=== PATIENT | male | born 1950 | race Caucasian/White ===

== ENCOUNTER 2019-08-25 13:47 | Inpatient (IN) | payer MEDICARE ==
[2019-08-25 14:34] LABS: Basophils # (A) 0.1 k/uL (0-0.2); Basophils % (A) 1 %; Eosinophils # (A) 0.1 k/uL (0-0.7); Eosinophils % (A) 1 %; HCT 41.5 % (39.0-53.0); HGB 12.7 gm/dL (13.0-17.5); Hypochromasia Marked; Lymphocytes # (A) 1.3 k/uL (1.0-4.8); Lymphocytes % (A) 15 %; MCH 27.1 pg (25.0-35.0); MCHC 30.6 g/dL (31.0-37.0); MCV 88.4 fL (80.0-100.0); Mean Platelet Volume 7.7; Monocytes # (A) 0.9 k/uL (0-1.0); Monocytes % (A) 9 %; Neutrophils # (A) 6.7 k/uL (1.3-7.7); Neutrophils % (A) 73 %; Platelet Count 315 k/uL (150-450); RDW 15.6 % (11.5-15.5); WBC 9.3 k/uL (3.8-10.6)
--- NOTE | 2019-08-25 14:42 | ED ---
SOB HPI - General Chief Complaint: Shortness of Breath Stated Complaint: sob Time Seen by Provider: 08/25/19 14:06 Source: patient Mode of arrival: wheelchair Limitations: no limitations - History of Present Illness Initial Comments: This is a 60-year-old male denies any history of emphysema or COPD but is a smoker formally one pack per day who states she's been having shortness of breath for the past several weeks getting progressively worse he has exertional dyspnea he states she's had edema to his lower extremities with weeping and blister formation. He denies any overt chest pain cough fevers chills or sweats he does state he had some loss of taste to his tongue. No or exposure to covid- 19. No chest pain other complaints no other modifying factors MD Complaint: shortness of breath - Related Data Home Medications Medication Instructions Recorded Confirmed Naproxen Sodium [Aleve] 220 - 440 mg PO DAILY PRN 08/25/19 08/25/19 Allergies Allergy/AdvReac Type Severity Reaction Status Date / Time No Known Allergies Allergy Verified 08/25/19 16:32 Review of Systems ROS Statement: Those systems with pertinent positive or pertinent negative responses have been documented in the HPI. ROS Other: All systems not noted in ROS Statement are negative. Past Medical History Past Medical History: Hyperlipidemia, Hypertension Additional Past Medical History / Comment(s): heart disease, angina History of Any Multi-Drug Resistant Organisms: None Reported Past Surgical History: Joint Replacement, Orthopedic Surgery Additional Past Surgical History / Comment(s): right knee, right hip replacements Past Psychological History: No Psychological Hx Reported Smoking Status: Current every day smoker Past Alcohol Use History: None Reported Past Drug Use History: None Reported General Exam - General Exam Comments Initial Comments: This is a well-developed asthenic appearing male who is awake alert oriented 3 Limitations: no limitations General appearance: alert, anxious Head exam: Present: atraumatic, normocephalic, normal inspection Eye exam: Present: normal appearance, PERRL, EOMI. Absent: scleral icterus, conjunctival injection, periorbital swelling ENT exam: Present: normal exam, mucous membranes moist Neck exam: Present: normal inspection, full ROM, other. Absent: tenderness, meningismus, lymphadenopathy Respiratory exam: Present: rales, decreased breath sounds (No stridor JVD or br uits). Absent: respiratory distress, wheezes, rhonchi, stridor Cardiovascular Exam: Present: normal rhythm, tachycardia, normal heart sounds. Absent: systolic murmur, diastolic murmur, rubs, gallop, clicks GI/Abdominal exam: Present: soft, normal bowel sounds. Absent: distended, tenderness, guarding, rebound, rigid Extremities exam: Present: full ROM, normal capillary refill, pedal edema, other (Pila edema past the knees bilaterally evidence of weeping multiple areas of partially healing blisters on the legs. His socks are seen with serous colored fluid.). Absent: tenderness, joint swelling, calf tenderness Back exam: Present: normal inspection Neurological exam: Present: alert, oriented X3, CN II-XII intact Psychiatric exam: Present: normal affect, normal mood Skin exam: Present: warm, dry. Absent: rash Course Vital Signs 08/25/19 08/25/19 08/25/19 13:54 14:22 14:28 Temperature 97.5 F L Pulse Rate 120 H 116 H Pulse Rate [ Pulse Oximetery ] Respiratory 20 22 16 Rate Blood Pressure 128/78 140/77 O2 Sat by Pulse 95 96 Oximetry 08/25/19 08/25/19 14:29 15:34 Temperature Pulse Rate 106 H Pulse Rate [ 122 H Pulse Oximetery ] Respiratory 16 Rate Blood Pressure 132/85 O2 Sat by Pulse 95 Oximetry - Reevaluation(s) Reevaluation #1: 08/25/19 16:49 Reevaluation patient reveals no change in his status. Reevaluation #2: 08/25/19 16:59 Patient is a gets some relief initial treatment Medical Decision Making - Medical Decision Making I did discuss Pfizer the patient as well as with Dr. Ribeiro from [facility] patient be admitted for further evaluation - Lab Data Result diagrams: 08/25/19 14:20 08/25/19 14:20 Lab Results 08/25/19 08/25/19 08/25/19 Range/Units 14:20 14:20 14:20 WBC 9.3 (3.8-10.6) k/uL RBC 4.70 (4.30-5.90) m/uL Hgb 12.7 L (13.0-17.5) gm/dL Hct 41.5 (39.0-53.0) % MCV 88.4 (80.0-100.0) fL MCH 27.1 (25.0-35.0) pg MCHC 30.6 L (31.0-37.0) g/dL RDW 15.6 H (11.5-15.5) % Plt Count 315 (150-450) k/uL Neutrophils % 73 % Lymphocytes % 15 % Monocytes % 9 % Eosinophils % 1 % Basophils % 1 % Neutrophils # 6.7 (1.3-7.7) k/uL Lymphocytes # 1.3 (1.0-4.8) k/uL Monocytes # 0.9 (0-1.0) k/uL Eosinophils # 0.1 (0-0.7) k/uL Basophils # 0.1 (0-0.2) k/uL Hypochromasia Marked PT 12.9 H (9.0-12.0) sec INR 1.3 H (<1.2) APTT 22.5 (22.0-30.0) sec D-Dimer 2.84 H (<0.60) mg/L FEU Sodium 135 L (137-145) mmol/L Potassium 4.5 (3.5-5.1) mmol/L Chloride 105 (98-107) mmol/L Carbon Dioxide 17 L (22-30) mmol/L Anion Gap 13 mmol/L BUN 26 H (9-20) mg/dL Creatinine 1.20 (0.66-1.25) mg/dL Est GFR (CKD-EPI)AfAm 72 (>60 ml/min/1.73 sqM) Est GFR (CKD-EPI)NonAf 62 (>60 ml/min/1.73 sqM) Glucose 140 H (74-99) mg/dL Lactic Ac Sepsis Rflx Plasma Lactic Acid Ari (0.7-2.0) mmol/L Calcium 9.3 (8.4-10.2) mg/dL Magnesium 2.1 (1.6-2.3) mg/dL Total Bilirubin 1.3 (0.2-1.3) mg/dL AST 126 H (17-59) U/L ALT 114 H (4-49) U/L Alkaline Phosphatase 116 (38-126) U/L Creatine Kinase 189 H (55-170) U/L Troponin I (0.000-0.034) ng/mL NT-Pro-B Natriuret Pep pg/mL Total Protein 7.2 (6.3-8.2) g/dL Albumin 3.8 (3.5-5.0) g/dL 08/25/19 08/25/19 08/25/19 Range/Units 14:20 14:20 14:20 WBC (3.8-10.6) k/uL RBC (4.30-5.90) m/uL Hgb (13.0-17.5) gm/dL Hct (39.0-53.0) % MCV (80.0-100.0) fL MCH (25.0-35.0) pg MCHC (31.0-37.0) g/dL RDW (11.5-15.5) % Plt Count (150-450) k/uL Neutrophils % % Lymphocytes % % Monocytes % % Eosinophils % % Basophils % % Neutrophils # (1.3-7.7) k/uL Lymphocytes # (1.0-4.8) k/uL Monocytes # (0-1.0) k/uL Eosinophils # (0-0.7) k/uL Basophils # (0-0.2) k/uL Hypochromasia PT (9.0-12.0) sec INR (<1.2) APTT (22.0-30.0) sec D-Dimer (<0.60) mg/L FEU Sodium (137-145) mmol/L Potassium (3.5-5.1) mmol/L Chloride (98-107) mmol/L Carbon Dioxide (22-30) mmol/L Anion Gap mmol/L BUN (9-20) mg/dL Creatinine (0.66-1.25) mg/dL Est GFR (CKD-EPI)AfAm (>60 ml/min/1.73 sqM) Est GFR (CKD-EPI)NonAf (>60 ml/min/1.73 sqM) Glucose (74-99) mg/dL Lactic Ac Sepsis Rflx Plasma Lactic Acid Ari 3.9 H* (0.7-2.0) mmol/L Calcium (8.4-10.2) mg/dL Magnesium (1.6-2.3) mg/dL Total Bilirubin (0.2-1.3) mg/dL AST (17-59) U/L ALT (4-49) U/L Alkaline Phosphatase (38-126) U/L Creatine Kinase (55-170) U/L Troponin I 2.780 H* (0.000-0.034) ng/mL NT-Pro-B Natriuret Pep 34207 pg/mL Total Protein (6.3-8.2) g/dL Albumin (3.5-5.0) g/dL 08/25/19 Range/Units 14:53 WBC (3.8-10.6) k/uL RBC (4.30-5.90) m/uL Hgb (13.0-17.5) gm/dL Hct (39.0-53.0) % MCV (80.0-100.0) fL MCH (25.0-35.0) pg MCHC (31.0-37.0) g/dL RDW (11.5-15.5) % Plt Count (150-450) k/uL Neutrophils % % Lymphocytes % % Monocytes % % Eosinophils % % Basophils % % Neutrophils # (1.3-7.7) k/uL Lymphocytes # (1.0-4.8) k/uL Monocytes # (0-1.0) k/uL Eosinophils # (0-0.7) k/uL Basophils # (0-0.2) k/uL Hypochromasia PT (9.0-12.0) sec INR (<1.2) APTT (22.0-30.0) sec D-Dimer (<0.60) mg/L FEU Sodium (137-145) mmol/L Potassium (3.5-5.1) mmol/L Chloride (98-107) mmol/L Carbon Dioxide (22-30) mmol/L Anion Gap mmol/L BUN (9-20) mg/dL Creatinine (0.66-1.25) mg/dL Est GFR (CKD-EPI)AfAm (>60 ml/min/1.73 sqM) Est GFR (CKD-EPI)NonAf (>60 ml/min/1.73 sqM) Glucose (74-99) mg/dL Lactic Ac Sepsis Rflx Y Plasma Lactic Acid Ari (0.7-2.0) mmol/L Calcium (8.4-10.2) mg/dL Magnesium (1.6-2.3) mg/dL Total Bilirubin (0.2-1.3) mg/dL AST (17-59) U/L ALT (4-49) U/L Alkaline Phosphatase (38-126) U/L Creatine Kinase (55-170) U/L Troponin I (0.000-0.034) ng/mL NT-Pro-B Natriuret Pep pg/mL Total Protein (6.3-8.2) g/dL Albumin (3.5-5.0) g/dL - EKG Data -: EKG Interpreted by Me EKG shows normal: sinus rhythm EKG Comments: Sinus rhythm with tachycardia rate 116 156 QRS duration 106 QT since QTC 346/40 evidence of inferior and anterior infarct of undetermined age. - Radiology Data Radiology results: report reviewed (I did review the imaging and report evidence a right pleural effusion and evidence of right sided pulmonary embolism. Small left-sided effusion), image reviewed Critical Care Time Critical Care Time: Yes Critical Care Time: 39 minutes of critical care time which includes initial presentation with history physical labs x-rays several reevaluation the patient discussed with the patient regarding findings discussed with the beta physician admission orders documentation of the above Disposition Clinical Impression: Congestive heart failure, Pulmonary embolism, Lactic acidosis, Elevated troponin, Failure to thrive in adult, Peripheral edema Disposition: ADMITTED IP TO THIS [facility] Condition: Fair Referrals: None,Stated [Primary Care Provider] - 1-2 days
[2019-08-25 14:47] LABS: Albumin 3.8 g/dL (3.5-5.0); Calcium 9.3 mg/dL (8.4-10.2); Magnesium 2.1 mg/dL (1.6-2.3); Potassium 4.5 mmol/L (3.5-5.1); Total Bilirubin 1.3 mg/dL (0.2-1.3); Total Protein 7.2 g/dL (6.3-8.2)
--- NOTE | 2019-08-25 14:47 | XR ---
EXAMINATION TYPE: XR chest 2V DATE OF EXAM: 08/25/2019 COMPARISON: NONE HISTORY: Shortness of breath and lower extremity swelling TECHNIQUE: Frontal and lateral views of the chest are obtained. FINDINGS: Small right pleural effusion and trace left pleural effusion are seen with bibasilar airsp jignesh disease. Minimal central pulmonary vascular congestion and enlarged cardiac mediastinal silhouett e. Flattening of the diaphragms representing underlying COPD. Mild diffuse osseous demineralization. IMPRESSION: Fluid overload, likely cardiogenic with small right pleural effusion and trace left pleu ral effusion as well as bibasilar airspace disease. Underlying COPD also seen.
[2019-08-25 14:49] LABS: INR 1.3 (<1.2); Partial Thromboplastin Time 22.5 sec (22.0-30.0); Prothrombin Time 12.9 sec (9.0-12.0)
[2019-08-25 14:54] LABS: D-Dimer 2.84 mg/L FEU (<0.60)
[2019-08-25] MEDS ORDERED: SODIUM CHLORIDE 0.9% 1,000 ML IV STA ×2 (14:57)
--- NOTE | 2019-08-25 15:35 | CT ---
EXAMINATION TYPE: CT angio chest DATE OF EXAM: 08/25/2019 3:20 PM COMPARISON: Chest x-ray 08/25/2019 HISTORY: SOB CT DLP: 433.9 mGycm Automated exposure control for dose reduction was used. CONTRAST: CTA scan of the thorax is performed with IV Contrast, patient injected with 85 mL of Isovue 370, pulm onary embolism protocol. . FINDINGS: LUNGS: There is diffuse emphysematous changes bilaterally. Groundglass changes are seen bilaterally a nd there is bilateral pleural effusions greater on the right with areas of suspected compressive atel ectasis. Calcified granuloma right upper lobe. Measures 3 mm MEDIASTINUM: There is no questionable filling defect within a distal branch of the right pulmonary ar madhavi axial image 95 through 98. Heart is markedly enlarged and the aorta is of normal caliber with at herosclerotic changes. In the prevascular space there is pathologic adenopathy measuring short axis o f 1.2 cm. Reflux of contrast within the hepatic veins can be associated with right ventricular dysfun ction. Correlate clinically. Coronary artery calcification noted. OTHER: A small amount of fluid is seen adjacent to the liver and air adjacent to liver appears to be contained within bowel. Correlate clinically as this is only partially included on the exam.. Hypert rophic and degenerative change of the spine. IMPRESSION: 1. Findings suspicious for small pulmonary embolism involving a third order branches of the right pul monary artery and the right lower lobe. 2. COPD with severe cardiomegaly bilateral pleural effusions correlate for mild venous congestion. 3. Nonspecific mediastinal lymphadenopathy.
[2019-08-25] MEDS ORDERED: ASPIRIN 325 MG TAB PO STA (16:59)
[2019-08-25] MEDS ORDERED: HEPARIN SODIUM,PORCINE 5,000 UNIT/ML 1 ML VIAL IV PRN (17:02)
[2019-08-25] MEDS ORDERED: HEPARIN SODIUM,PORCINE 10,000 UNIT/ML 1 ML VIAL IV ONE (17:02)
[2019-08-25] MEDS: HEPARIN SOD,PORK IN 0.45% NACL 25,000 UNIT in 0.45% NACL 1 250ML.BAG IV SCH (17:34)
[2019-08-25] MEDS: FUROSEMIDE 10 MG/ML 4 ML VIAL IV SCH ×2 (17:34→23:08)
--- NOTE | 2019-08-25 18:24 | P.HPIM ---
History of Present Illness H&P Date: 08/25/19 Chief Complaint: shortness of breath 68-year-old male with no significant PMH presents the ED for shortness of breath or lower extremity swelling. Patient reports shortness of breath that has been progressively getting worse over the past 2 months. Patient reports 3 months ago, he was able to walk 1 mile prior to feeling short of breath. Patient states that he can barely walk from his bed to the washroom without stopping to catch his breath. Patient also complains of lower extremity swelling that has been also getting worse during this time period. Patient denies any orthopnea as he sleeps on his side. He denies any headache, nausea or vomiting, fever or chills, cough, chest pain, palpitations, changes in urination or bowel habits. No changes in appetite or weight. He denies any dizziness, numbness/weakness/tingling of the extremities.in the ED, his vital signs are stable except for pulse of 122.CBC showed hemoglobin of 12.7. INR was 1.3. D- dimer was 2.84. CMP showed sodium of 135, bicarbonate of 17, BUN of 26, glucose of 140. Lactic acid was 3.9. AST was 126, ALT of 114. Creatinine kinase was 189. Troponin was 2.78. BNP was 15,400, chest x-ray showing fluid overload.CTA chest was performed which confirmed PE, COPD with severe cardiomegaly and bilateral pleural effusions. Patient is admitted for anticipated greater than 48 hour admission for troponin elevation, CHF exacerbation and pulmonary embolus. Review of Systems Pertinent positives and negatives as discussed in HPI, a complete review of systems was performed and all other systems are negative. Past Medical History Past Medical History: Hyperlipidemia, Hypertension Additional Past Medical History / Comment(s): heart disease, angina History of Any Multi-Drug Resistant Organisms: None Reported Past Surgical History: Joint Replacement, Orthopedic Surgery Additional Past Surgical History / Comment(s): right knee, right hip replacements Past Psychological History: No Psychological Hx Reported Smoking Status: Current every day smoker Past Alcohol Use History: None Reported Past Drug Use History: None Reported Medications and Allergies Home Medications Medication Instructions Recorded Confirmed Type Naproxen Sodium [Aleve] 220 - 440 mg PO DAILY PRN 08/25/19 08/25/19 History Allergies Allergy/AdvReac Type Severity Reaction Status Date / Time No Known Allergies Allergy Verified 08/25/19 16:32 Physical Exam Vitals: Vital Signs Temp Pulse Pulse Resp BP Pulse Ox 08/25/19 17:01 105 H 16 114/89 96 08/25/19 15:34 106 H 16 132/85 95 08/25/19 14:29 122 H 08/25/19 14:28 116 H 16 140/77 96 08/25/19 14:22 22 08/25/19 13:54 97.5 F L 120 H 20 128/78 95 Intake and Output 08/25/19 08/25/19 08/25/19 06:59 14:59 22:59 Other: Weight 74.843 kg General: [non toxic], [no distress], [appears at stated age] Derm: [warm], [dry] Head: [atraumatic], [normocephalic], [symmetric] Eyes: [EOMI], [no lid lag], [anicteric sclera] Mouth: [no lip lesion], [mucus membranes moist] Cardiovascular: [S1S2 reg], [tachycardic], [positive DP pulse bilateral], Lungs: [decreased breath sounds bilateral], [Rales bilaterally] , [no accessory muscle use] Abdominal: [soft], [ nontender to palpation], [no guarding], [no appreciable organomegaly] Ext: [no gross muscle atrophy], [2+ pitting lower extremity edema with weeping], [no contractures] Neuro: [ CN II-XI grossly intact], [no focal neuro deficits] Psych: [Alert], [oriented], [appropriate affect] Results CBC & Chem 7: 08/25/19 14:20 08/25/19 14:20 Labs: Abnormal Lab Results - Last 24 Hours (Table) 08/25/19 08/25/19 08/25/19 Range/Units 14:20 14:20 14:20 Hgb 12.7 L (13.0-17.5) gm/dL MCHC 30.6 L (31.0-37.0) g/dL RDW 15.6 H (11.5-15.5) % PT 12.9 H (9.0-12.0) sec INR 1.3 H (<1.2) D-Dimer 2.84 H (<0.60) mg/L FEU Sodium 135 L (137-145) mmol/L Carbon Dioxide 17 L (22-30) mmol/L BUN 26 H (9-20) mg/dL Glucose 140 H (74-99) mg/dL Plasma Lactic Acid Ari (0.7-2.0) mmol/L AST 126 H (17-59) U/L ALT 114 H (4-49) U/L Creatine Kinase 189 H (55-170) U/L Troponin I (0.000-0.034) ng/mL 08/25/19 08/25/19 Range/Units 14:20 14:20 Hgb (13.0-17.5) gm/dL MCHC (31.0-37.0) g/dL RDW (11.5-15.5) % PT (9.0-12.0) sec INR (<1.2) D-Dimer (<0.60) mg/L FEU Sodium (137-145) mmol/L Carbon Dioxide (22-30) mmol/L BUN (9-20) mg/dL Glucose (74-99) mg/dL Plasma Lactic Acid Ari 3.9 H* (0.7-2.0) mmol/L AST (17-59) U/L ALT (4-49) U/L Creatine Kinase (55-170) U/L Troponin I 2.780 H* (0.000-0.034) ng/mL Assessment and Plan Assessment: Shortness of breath Pulmonary embolus Troponin elevation Acute CHF exacerbation Lactic acidosis Transaminitis History of COPD Patient's shortness of breath is multifactorial. Differentials include pulmonary embolus, advanced COPD, CHF exacerbation. CTA chest shows small PE involving the third order branches of the right pulmonary artery, COPD with severe cardiomegaly bilateral pleural effusions. Patient has been started on heparin drip for his diagnosis of PE. Pulmonology and hematology has been consulted for further management. His troponin elevation of 2.78, EKG showing sinus tachycardia could be related to demand ischemia or troponin leak from CHF versus non-ST elevation RI. Plan is to trend troponin/EKG to rule out ACS. Telemetry monitoring as ordered. Echocardiogram has been ordered. He will be continued on heparin drip as above. He will be started on aspirin. Cardiology will be consulted. His CTA chest is suggested of congestive heart failure exacerbation. Patient be started on Lasix 40 mg IV 3 times a day. Strict intake and outtake will be be ordered. Daily weights will be performed. Patient had elevated lactic acid of 3.9 on admission. This is likely related to dehydration. He was given 1 L bolus in the ED. There are no clear signs of infection at this time. Plans to repeat lactic acid until negative. Patient has elevated AST of 126, ALT of 114. This is of unknown significance. Will order lipid panel and acute hepatitis panel. Plans to repeat CMP tomorrow morning. CTA chest is suggestive of a chronic COPD. He will be given DuoNeb as needed for shortness of breath and wheezing. DVT prophylaxis: [heparin drip] Discussed with: [patient] Anticipated discharge: [2-3 days] Anticipated discharge place: [home] A total of [60] minutes was spent on the care of this complex patient more than 50% of the time was spent in counseling and care coordination. Patient names his sister Angy decision maker if he is unable to make decisions for himself. Patient would like to be full code.
[2019-08-25] MEDS ORDERED: IPRATROPIUM-ALBUTEROL 3 ML NEB INHALATION PRN (19:05)
[2019-08-25] MEDS: IPRATROPIUM-ALBUTEROL 3 ML NEB INHALATION SCH (19:17)
[2019-08-25] MEDS ORDERED: IPRATROPIUM-ALBUTEROL 3 ML NEB INHALATION SCH (20:00)
[2019-08-26 04:45] LABS: Anisocytosis Slight; Basophils # (A) 0.1 k/uL (0-0.2); Basophils % (A) 1 %; Eosinophils % (A) 1 %; HCT 39.1 % (39.0-53.0); HGB 11.7 gm/dL (13.0-17.5); Hypochromasia Marked; Lymphocytes # (A) 1.6 k/uL (1.0-4.8); Lymphocytes % (A) 20 %; MCHC 29.8 g/dL (31.0-37.0); MCV 87.2 fL (80.0-100.0); Mean Platelet Volume 7.5; Monocytes # (A) 0.8 k/uL (0-1.0); Monocytes % (A) 10 %; Neutrophils # (A) 5.2 k/uL (1.3-7.7); Neutrophils % (A) 65 %; Platelet Count 264 k/uL (150-450); RBC 4.49 m/uL (4.30-5.90); RDW 16.2 % (11.5-15.5); WBC 8.1 k/uL (3.8-10.6)
[2019-08-26 04:56] LABS: Albumin 3.5 g/dL (3.5-5.0); Calcium 8.8 mg/dL (8.4-10.2); Potassium 4.3 mmol/L (3.5-5.1); Total Bilirubin 1.1 mg/dL (0.2-1.3); Total Protein 6.8 g/dL (6.3-8.2)
[2019-08-26] MEDS: IPRATROPIUM-ALBUTEROL 3 ML NEB INHALATION SCH ×4 (07:03→20:11)
[2019-08-26] MEDS: FUROSEMIDE 10 MG/ML 4 ML VIAL IV SCH ×3 (07:59→22:46)
--- NOTE | 2019-08-26 08:44 | ECHOF ---
Referral Reason:Troponin elevation MEASUREMENTS -------- HEIGHT: 180.3 cm WEIGHT: 84.4 kg BP: 119/71 RVIDd: 3.9 cm (< 3.3) IVSd: 1.2 cm (0.6 - 1.1) LVIDd: 5.8 cm (3.9 - 5.3) LVPWd: 1.3 cm (0.6 - 1.1) IVSs: 1.2 cm LVIDs: 5.1 cm LVPWs: 1.5 cm LA Diam: 4.1 cm (2.7 - 3.8) LAESV Index (A-L): 41.35 ml/m Ao Diam: 3.2 cm (2.0 - 3.7) AV Cusp: 1.8 cm (1.5 - 2.6) MV EXCURSION: 17.354 mm (> 18.000) MV EF SLOPE: 47 mm/s (70 - 150) EPSS: 1.8 cm MV E Meng: 1.54 m/s MV DecT: 155 ms MV A Meng: 1.19 m/s MV E/A Ratio: 1.29 RAP: 15.00 mmHg RVSP: 49.17 mmHg FINDINGS -------- This was a technically good study. The left ventricular size is normal. There is borderline concentric left ventricular hypertrophy. Overall left ventricular systolic function is severely impaired with, an EF between 20 - 25 %. Inf erior Hypokinesis The right ventricle is moderately enlarged. LA is severely dilated >40 ml/m2 The right atrium is normal in size. Interatrial and interventricular septum intact. The aortic valve is trileaflet and appears structurally normal. There is mild aortic regurgitation. The mitral valve leaflets are mildly thickened. [id number] mitral regurgitation is present. [id number]-[id number] tricuspid regurgitation present. There is moderate pulmonary hypertension. The r ight ventricular systolic pressure, as measured by Doppler, is 49.17mmHg. Trace/mild (physiologic) pulmonic regurgitation. The aortic root size is normal. The inferior vena cava is dilated with no significant inspiratory collapse which is consistent estima keisha right atrial pressure of >15 mmHg. There is no pericardial effusion. CONCLUSIONS -------- 1. This was a technically good study. 2. The left ventricular size is normal. 3. There is borderline concentric left ventricular hypertrophy. 4. Overall left ventricular systolic function is severely impaired with, an EF between 20 - 25 %. 5. Inferior Hypokinesis 6. The right ventricle is moderately enlarged. 7. LA is severely dilated >40 ml/m2 8. The right atrium is normal in size. 9. Interatrial and interventricular septum intact. 10. The aortic valve is trileaflet and appears structurally normal. 11. There is mild aortic regurgitation. 12. The mitral valve leaflets are mildly thickened. 13. Mkfssprp-xl-kiwqha mitral regurgitation is present. 14. Ybxp-is-cphtraxj tricuspid regurgitation present. 15. There is moderate pulmonary hypertension. 16. The right ventricular systolic pressure, as measured by Doppler, is 49.17mmHg. 17. Trace/mild (physiologic) pulmonic regurgitation. 18. The aortic root size is normal. 19. The inferior vena cava is dilated with no significant inspiratory collapse which is consistent es timated right atrial pressure of >15 mmHg. 20. There is no pericardial effusion. MEDICAL CERTIFICATION SPECIALIST: Lian Mcqueen RDCS
--- NOTE | 2019-08-26 09:50 | CONS ---
CONSULTATION Mr. Lujan is a 68-year-old male with a history of chronic tobacco use who carries diagnosis of prior myocardial infarction who has not seen a physician in a long time, presents with symptoms of progressive dyspnea, peripheral edema over the last month or so. Because of that, he came into the emergency room and subsequently admitted. The patient has not seen a physician in a long time. For the last few weeks, he has been having the worsening in the edema, and worsening dyspnea. He. He denies any dizziness, palpitation, although he said that he was told in the past that he has an irregular rhythm. He used to be on medication, but he has not been taking anything at all. He has no knowledge of documented diabetes or hypertension. He is a smoker. He used to smoke up to a pack a day. He has a cough, productive, going on for a few weeks. He denies any fever. In the emergency room, he underwent a CT angiogram of the chest that revealed evidence of suspicion of a small pulmonary embolism with COPD, severe cardiomegaly and bilateral pleural effusion. MEDICATIONS AT HOME: None. REVIEW OF SYSTEMS: RESPIRATORY SYSTEM: He had dyspnea on exertion, cough with chronic tobacco use. GI SYSTEM: He denies any GI bleeding. No peptic ulcer disease. SYSTEM: No dysuria or hematuria. NERVOUS SYSTEM: No stroke or seizure. PHYSICAL EXAMINATION: A 68-year-old male, alert, oriented, in no apparent distress. Blood pressure 134/80 with a heart rate in the low 100s. HEAD: Normocephalic. EYES: Sclerae nonicteric. NECK: With increased jugular venous pressure. LUNGS: With decreased air exchange bilaterally with scattered rhonchi. HEART: Regular rate and rhythm, S1-S2 with a holosystolic murmur in the apex, radiating to the axilla 3/6 and a systolic ejection murmur at the base. ABDOMEN: Soft, nontender, positive bowel sounds. EXTREMITIES: +2 to 3 edema bilaterally. Ulceration noted on the right lower extremity. Distal pulses +1. LAB DATA: Revealed a hemoglobin of 12.7, white blood cell of 9.3. D-dimer 2.84. BUN and creatinine 26 and 1.2 on admission up to 28 and 1.37 today. His plasma lactic acid was 3.9. His troponin at 2.78, 2.76 and 3.260. NT proBNP 27076. AST of 126, ALT of 114. EKG revealed a sinus tachycardia, rate of 116 with evidence suggestive of intra-apical myocardial infarction of unknown age. Chest x-ray shows evidence of pleural effusion, more on the her right side with cardiomegaly and evidence consistent with congestive heart failure. IMPRESSION: 1. Symptoms of progressive dyspnea and peripheral edema and finding consistent with congestive heart failure. It is possible that this is systolic dysfunction. Patient had significant mitral regurgitation murmur. 2. Troponin elevation with no clear chest pain, could be related to the heart failure. There is no evidence to suggest acute ischemic event at this point. 3. Questionable pulmonary embolism although cannot explain all his symptoms based on the report of the CT angiogram. 4. History of chronic tobacco use. 5. Noncompliance. RECOMMENDATION: From the cardiac standpoint, I will continue IV diuretics. Will review the results of his echocardiogram. I will add to his regimen and beta teri. Will follow his renal function closely and depending on results of the echo, add WES inhibitor. Patient will be continued on IV heparin at this time. Depending on his progress, further recommendation will be made. Thank you for this consult. Will follow with you. MMODL / IJN: [id number] /
[2019-08-26] MEDS: CARVEDILOL 3.125 MG TAB PO SCH ×2 (09:54→17:16)
[2019-08-26] MEDS: ATORVASTATIN 40 MG TAB PO SCH (09:54)
[2019-08-26] MEDS: HEPARIN SOD,PORK IN 0.45% NACL 25,000 UNIT in 0.45% NACL 1 250ML.BAG IV SCH (11:36)
[2019-08-26] MEDS: methylPREDNISolone SOD SUCCI 40 MG/ML 1 ML VIAL IV SCH ×3 (11:36→22:46)
[2019-08-26] MEDS ORDERED: ASPIRIN 325 MG TAB PO SCH (12:00)
--- NOTE | 2019-08-26 12:14 | US ---
EXAMINATION TYPE: US venous doppler duplex LE DATE OF EXAM: 08/26/2019 12:06 PM COMPARISON: NONE CLINICAL HISTORY: PE. PE bilateral pitting edema. SIDE PERFORMED: Bilateral TECHNIQUE: The lower extremity deep venous system is examined utilizing real time linear array sonog klever with graded compression, doppler sonography and color-flow sonography. VESSELS IMAGED: External Iliac Vein (EIV) Common Femoral Vein Deep Femoral Vein Greater Saphenous Vein * Femoral Vein Popliteal Vein Small Saphenous Vein * Proximal Calf Veins (* superficial vessels) Exam limitations due to pitting edema. Right Leg: Negative for DVT Left Leg: Negative for DVT IMPRESSION: 1. No diagnostic evidence of DVT
[2019-08-26 12:36] LABS: Hepatitis A Antibody IgM Non-Reactive (Non-Reactive); Hepatitis B Core IgM Non-Reactive (Non-Reactive); Hepatitis B Surface Antigen Non-Reactive (Non-Reactive); Hepatitis C IgG Antibody Non-Reactive (Non-Reactive)
--- NOTE | 2019-08-26 12:40 | P.PN ---
Subjective Progress Note Date: 08/26/19 Principal diagnosis: Shortness of breath, lower extremity swelling 68-year-old white male, with history of emphysema, chronic and ongoing history of smoking, prior history of myocardial infarction, who has not seen a physician in the long time. Patient presented to the emergency department on 08/25/2019 with complaints of increasing shortness of breath for the past month, and increasing swelling in his lower extremities, his edema continued to worsen, he developed florid blisters on his right lower extremity which eventually erupted and the skin is now open and weeping on his right lower leg. Denied any fever or chills, denied any chest pain, no cough, no wheezing, no palpitations. No nausea or vomiting, no diarrhea. Chest x-ray showed small right pleural effusion and trace left pleural effusion with bibasilar airspace disease, minimal central pulmonary vascular congestion and enlarged cardiac mediastinal silhouette. His lab work showed white blood cell count of 9.3, hemoglobin of 12.7, INR 1.3, d-dimer was elevated at 2.84, CTA chest showed questionable small pulmonary embolism involving the third order of the right pulmonary artery and the right lower lobe, background of COPD with severe cardiomegaly and bilateral pleural effusions. And nonspecific mediastinal lymphadenopathy. EKG showed sinus tachycardia with a rate of 116, with evidence of inferior and anterior infarct of undetermined age. Plasma lactic acid was 2.6 on admission, renal profile showed BUN of 26 and creatinine of 1.2, AST of 126, ALT of 114, alk phos of 116, troponins were 2.78, 2.76, and 3.26, proBNP was 15,004 100, COVID 19 was negative. Patient was started on IV diuretics, IV heparin for elevated troponins, cardiology consultation has been obtained, he was started on breathing treatments. Echocardiogram showed severely impaired LV function with an EF of 20-25%, inferior hypokinesis, moderate to severe mitral regurgitation, [id number] tricuspid regurgitation, moderately severe pulmonary hypertension with right-sided pressures of 49.1 mmHg. Objective - Vital Signs Vital signs: Vital Signs Temp 97.5 F L 08/26/19 07:57 Pulse 96 08/26/19 11:32 Resp 16 08/26/19 11:32 BP 117/84 08/26/19 11:32 Pulse Ox 96 08/26/19 11:32 Intake & Output 08/25/19 08/26/19 08/26/19 18:59 06:59 18:59 Intake Total 82.853 660.092 Output Total 900 1125 Balance -817.147 -464.908 Weight 74.843 kg 84.5 kg Intake: Intake, IV Titration 82.853 160.092 Amount Heparin Sod,Pork in 0.45% 82.853 160.092 NaCl 25,000 unit In 0.45 % NaCl 1 250ml.bag @ 18 UNITS/KG/HR 13.472 mls/hr IV .[id number] [facility] Rx#: [id number] Oral 500 Output: Urine 900 1125 Other: Voiding Method Urinal # Voids 1 - Exam GENERAL EXAM: Alert, pleasant, 68-year-old white male, sitting up in the bed, on room air with a pulse ox of 96%, comfortable in no apparent distress. HEAD: Normocephalic/atraumatic. EYES: Normal reaction of pupils, equal size. Conjunctiva pink, sclera white. NOSE: Clear with pink turbinates. THROAT: No erythema or exudates. NECK: No masses, no JVD, no thyroid enlargement, no adenopathy. CHEST: No chest wall deformity. Symmetrical expansion. LUNGS: Equal air entry with diffuse rhonchi and wheezing CVS: Regular rate and rhythm, normal S1 and S2, no gallops, no murmurs, no rubs ABDOMEN: Soft, nontender. No hepatosplenomegaly, normal bowel sounds, no g uarding or rigidity. EXTREMITIES: No clubbing, 2+ lower extremity edema, left greater than right, wi th weeping open blisters on the right lower extremity no cyanosis, 2+ pulses and upper and lower extremities. MUSCULOSKELETAL: Muscle strength and tone normal. SPINE: No scoliosis or deformity SKIN: No rashes, weeping open blisters on right lower extremity CENTRAL NERVOUS SYSTEM: Alert and oriented -3. No focal deficits, tone is normal in all 4 extremities. PSYCHIATRIC: Alert and oriented -3. Appropriate affect. Intact judgment and insight. - Labs CBC & Chem 7: 08/26/19 04:26 08/26/19 04:26 Labs: Abnormal Lab Results - Last 24 Hours (Table) 08/25/19 08/25/19 08/25/19 Range/Units 14:20 14:20 14:20 Hgb 12.7 L (13.0-17.5) gm/dL MCHC 30.6 L (31.0-37.0) g/dL RDW 15.6 H (11.5-15.5) % PT 12.9 H (9.0-12.0) sec INR 1.3 H (<1.2) APTT (22.0-30.0) sec D-Dimer 2.84 H (<0.60) mg/L FEU Sodium 135 L (137-145) mmol/L Carbon Dioxide 17 L (22-30) mmol/L BUN 26 H (9-20) mg/dL Creatinine (0.66-1.25) mg/dL Glucose 140 H (74-99) mg/dL Plasma Lactic Acid Ari (0.7-2.0) mmol/L AST 126 H (17-59) U/L ALT 114 H (4-49) U/L Creatine Kinase 189 H (55-170) U/L Troponin I (0.000-0.034) ng/mL HDL Cholesterol (40-60) mg/dL 08/25/19 08/25/19 08/25/19 Range/Units 14:20 14:20 17:42 Hgb (13.0-17.5) gm/dL MCHC (31.0-37.0) g/dL RDW (11.5-15.5) % PT (9.0-12.0) sec INR (<1.2) APTT (22.0-30.0) sec D-Dimer (<0.60) mg/L FEU Sodium (137-145) mmol/L Carbon Dioxide (22-30) mmol/L BUN (9-20) mg/dL Creatinine (0.66-1.25) mg/dL Glucose (74-99) mg/dL Plasma Lactic Acid Ari 3.9 H* 2.2 H* (0.7-2.0) mmol/L AST (17-59) U/L ALT (4-49) U/L Creatine Kinase (55-170) U/L Troponin I 2.780 H* (0.000-0.034) ng/mL HDL Cholesterol (40-60) mg/dL 08/25/19 08/25/19 08/25/19 Range/Units 21:07 22:49 22:49 Hgb (13.0-17.5) gm/dL MCHC (31.0-37.0) g/dL RDW (11.5-15.5) % PT (9.0-12.0) sec INR (<1.2) APTT 52.5 H (22.0-30.0) sec D-Dimer (<0.60) mg/L FEU Sodium (137-145) mmol/L Carbon Dioxide (22-30) mmol/L BUN (9-20) mg/dL Creatinine (0.66-1.25) mg/dL Glucose (74-99) mg/dL Plasma Lactic Acid Ari 2.6 H* (0.7-2.0) mmol/L AST (17-59) U/L ALT (4-49) U/L Creatine Kinase (55-170) U/L Troponin I 2.760 H* (0.000-0.034) ng/mL HDL Cholesterol (40-60) mg/dL 08/26/19 08/26/19 08/26/19 Range/Units 00:39 04:26 04:26 Hgb 11.7 L (13.0-17.5) gm/dL MCHC 29.8 L (31.0-37.0) g/dL RDW 16.2 H (11.5-15.5) % PT (9.0-12.0) sec INR (<1.2) APTT (22.0-30.0) sec D-Dimer (<0.60) mg/L FEU Sodium (137-145) mmol/L Carbon Dioxide (22-30) mmol/L BUN (9-20) mg/dL Creatinine (0.66-1.25) mg/dL Glucose (74-99) mg/dL Plasma Lactic Acid Ari 2.4 H* (0.7-2.0) mmol/L AST (17-59) U/L ALT (4-49) U/L Creatine Kinase (55-170) U/L Troponin I 3.260 H* (0.000-0.034) ng/mL HDL Cholesterol (40-60) mg/dL 08/26/19 08/26/19 Range/Units 04:26 04:26 Hgb (13.0-17.5) gm/dL MCHC (31.0-37.0) g/dL RDW (11.5-15.5) % PT (9.0-12.0) sec INR (<1.2) APTT 44.6 H (22.0-30.0) sec D-Dimer (<0.60) mg/L FEU Sodium 134 L (137-145) mmol/L Carbon Dioxide (22-30) mmol/L BUN 28 H (9-20) mg/dL Creatinine 1.37 H (0.66-1.25) mg/dL Glucose 103 H (74-99) mg/dL Plasma Lactic Acid Ari (0.7-2.0) mmol/L AST 206 H (17-59) U/L ALT 206 H (4-49) U/L Creatine Kinase (55-170) U/L Troponin I (0.000-0.034) ng/mL HDL Cholesterol 31 L (40-60) mg/dL Assessment and Plan Plan: Assessment: #1. Acute exacerbation of chronic obstructive pulmonary disease #2. Acute exacerbation of congestive heart failure with systolic dysfunction, echocardiogram showed severely impaired LV function with an EF of 20-25%, inferior hypokinesis, moderately enlarged right ventricle, moderate to severe mitral regurg, [id number] tricuspid regurg, and moderate pulmonary hypertension with right-sided pressures of 49.1 mmHg and IVC dilated with no significant inspiratory collapse with estimated right atrial pressure of greater than 15 mmHg #3. Elevated d-dimer, CTA showed findings suspicious for small pulmonary embolism involving the third order branch of the right pulmonary artery and the right lower lobe #4. Hypertension #5. Hyperlipidemia #6. Chronic and ongoing history of smoking #7. History of chronic obstructive pulmonary disease #8. Previous history of myocardial infarction #9. Elevated liver enzymes #10. Mild lactic acidosis, resolved with IV hydration #11. Troponin elevation, of 2.78, 2.76, and 3.26, cardiology following #12. Medical noncompliance Plan: Continue diuretics, we will add IV steroids, nebulized treatments, echocardiogram results have been noted, ultrasound of lower extremities has been obtained and reviewed, no evidence of DVT. Chest x-ray and CTA chest have been reviewed, showing possibility of small pulmonary embolism, and bilateral pleural effusions. Patient will likely need anticoagulation for possibility of pulmonary embolism. We'll continue to follow I performed a history & physical examination of the patient and discussed their management with my nurse practitioner, Chetna Georges. I reviewed the nurse practitioner's note and agree with the documented findings and plan of care. Lung sounds are positive for diminished breath sounds. The findings and the impression was discussed with the patient. I attest to the documentation by the nurse practitioner. Time with Patient: Greater than 30
[2019-08-26 15:19] VITALS: BMI 25.9
[2019-08-26 16:38] LABS: Glucose,Whole Blood 148 mg/dL (75-99)
[2019-08-26] MEDS: INSULIN ASPART (NovoLOG) 100 UNIT/ML VIAL SQ SCH ×2 (17:15→21:13)
--- NOTE | 2019-08-26 18:05 | P.PN ---
Subjective Progress Note Date: 08/26/19 Principal diagnosis: Shortness of breath Patient was seen and examined. No acute events overnight. Patient reports slight improvement in his breathing since admission. He continues to report swelling in his lower extremities along with weeping over his right lower extremity. He denies any chest pain or palpitations. No nausea or vomiting. No fever or chills. Objective - Vital Signs Vital signs: Vital Signs Temp 96.9 F L 08/26/19 15:48 Pulse 100 08/26/19 16:20 Resp 18 08/26/19 16:00 BP 109/74 08/26/19 15:48 Pulse Ox 95 08/26/19 15:48 Intake & Output 08/25/19 08/26/19 08/26/19 18:59 06:59 18:59 Intake Total 82.853 900.092 Output Total 900 1775 Balance -817.147 -874.908 Weight 74.843 kg 84.5 kg 84.5 kg Intake: Intake, IV Titration 82.853 160.092 Amount Heparin Sod,Pork in 0.45% 82.853 160.092 NaCl 25,000 unit In 0.45 % NaCl 1 250ml.bag @ 18 UNITS/KG/HR 13.472 mls/hr IV .[id number] [facility] Rx#: [id number] Oral 740 Output: Urine 900 1775 Other: Voiding Method Urinal # Voids 1 - Exam General: [non toxic], [no distress], [appears at stated age] Derm: [warm], [dry] Head: [atraumatic], [normocephalic], [symmetric] Eyes: [EOMI], [no lid lag], [anicteric sclera] Mouth: [no lip lesion], [mucus membranes moist] Cardiovascular: [S1S2 reg], [tachycardic], [positive DP pulse bilateral], Lungs: [decreased breath sounds bilateral], [Rales bilaterally] , [no accessory muscle use] Abdominal: [soft], [ nontender to palpation], [no guarding], [no appreciable organomegaly] Ext: [no gross muscle atrophy], [2+ pitting lower extremity edema with weeping on the right lower extremity], [no contractures], [open sore over the right knee] Neuro: [no focal neuro deficits] Psych: [Alert], [oriented], [appropriate affect] - Labs CBC & Chem 7: 08/26/19 04:26 08/26/19 04:26 Labs: Abnormal Lab Results - Last 24 Hours (Table) 08/25/19 08/25/19 08/25/19 Range/Units 17:42 21:07 22:49 Hgb (13.0-17.5) gm/dL MCHC (31.0-37.0) g/dL RDW (11.5-15.5) % APTT 52.5 H (22.0-30.0) sec Sodium (137-145) mmol/L BUN (9-20) mg/dL Creatinine (0.66-1.25) mg/dL Glucose (74-99) mg/dL POC Glucose (mg/dL) (75-99) mg/dL Plasma Lactic Acid Ari 2.2 H* 2.6 H* (0.7-2.0) mmol/L AST (17-59) U/L ALT (4-49) U/L Troponin I (0.000-0.034) ng/mL HDL Cholesterol (40-60) mg/dL 08/25/19 08/26/19 08/26/19 Range/Units 22:49 00:39 04:26 Hgb (13.0-17.5) gm/dL MCHC (31.0-37.0) g/dL RDW (11.5-15.5) % APTT (22.0-30.0) sec Sodium (137-145) mmol/L BUN (9-20) mg/dL Creatinine (0.66-1.25) mg/dL Glucose (74-99) mg/dL POC Glucose (mg/dL) (75-99) mg/dL Plasma Lactic Acid Ari 2.4 H* (0.7-2.0) mmol/L AST (17-59) U/L ALT (4-49) U/L Troponin I 2.760 H* 3.260 H* (0.000-0.034) ng/mL HDL Cholesterol (40-60) mg/dL 08/26/19 08/26/19 08/26/19 Range/Units 04:26 04:26 04:26 Hgb 11.7 L (13.0-17.5) gm/dL MCHC 29.8 L (31.0-37.0) g/dL RDW 16.2 H (11.5-15.5) % APTT 44.6 H (22.0-30.0) sec Sodium 134 L (137-145) mmol/L BUN 28 H (9-20) mg/dL Creatinine 1.37 H (0.66-1.25) mg/dL Glucose 103 H (74-99) mg/dL POC Glucose (mg/dL) (75-99) mg/dL Plasma Lactic Acid Ari (0.7-2.0) mmol/L AST 206 H (17-59) U/L ALT 206 H (4-49) U/L Troponin I (0.000-0.034) ng/mL HDL Cholesterol 31 L (40-60) mg/dL 08/26/19 Range/Units 16:30 Hgb (13.0-17.5) gm/dL MCHC (31.0-37.0) g/dL RDW (11.5-15.5) % APTT (22.0-30.0) sec Sodium (137-145) mmol/L BUN (9-20) mg/dL Creatinine (0.66-1.25) mg/dL Glucose (74-99) mg/dL POC Glucose (mg/dL) 148 H (75-99) mg/dL Plasma Lactic Acid Ari (0.7-2.0) mmol/L AST (17-59) U/L ALT (4-49) U/L Troponin I (0.000-0.034) ng/mL HDL Cholesterol (40-60) mg/dL Assessment and Plan Assessment: Shortness of breath Pulmonary embolus Troponin elevation Acute CHF exacerbation Acute COPD exacerbation Right knee pain Lactic acidosis Transaminitis History of COPD Patient's shortness of breath is multifactorial. Differentials include pulmonary embolus, advanced COPD, CHF exacerbation. CTA chest shows small PE involving the third order branches of the right pulmonary artery, COPD with severe cardiomegaly bilateral pleural effusions. Lower extremity duplex negative. Patient has been started on heparin drip for his diagnosis of PE. Pulmonology and hematology has been consulted for further management. His troponin elevation of 2.78, 2.76, 3.26 with EKG showing sinus tachycardia could be related to demand ischemia or troponin leak from CHF versus non-ST elevation NH. Telemetry monitoring as ordered. He will be continued on heparin drip as above. He will be started on aspirin. Coreg has been started by cardiology. Cardiology is following the patient. His CTA chest is suggested of congestive heart failure exacerbation. Echo cardiac shows EF 20-25% with borderline concentric LVH. Patient be started on Lasix 40 mg IV 3 times a day. Strict intake and outtake will be be ordered. Daily weights will be performed. He has been started on beta teri as above. He will need WES inhibitor and Aldactone prior to discharge. Consider AICD placement depending on cardiology recommendations. Appears to have deformity with previous history of chemo placement. Follow knee x-ray. Follow orthopedic consultation. Patient had elevated lactic acid of 3.9, 2.4, 1.7. This is likely related to dehydration. He was given 1 L bolus in the ED. There are no clear signs of infection at this time. His most recent lactic acid is within normal limits. Patient has elevated AST of 126-206, ALT of 114-206. This is of unknown significance. Lipid panel and hepatic panel is within normal limits. We will order liver ultrasound. Repeat CMP tomorrow morning. CTA chest is suggestive of a chronic COPD. He will be given DuoNeb as needed for shortness of breath and wheezing. Solu- Medrol has been started by pulmonology. Start Symbicort. [Patient admitted for CHF exacerbation, continuing IV diuresis. Found to have elevated troponins and probable PE, continued on heparin drip. He is pending clinical improvement. Likely DC in 2-3 days.]
--- NOTE | 2019-08-26 19:06 | XR ---
EXAMINATION TYPE: XR knee complete RT DATE OF EXAM: 08/26/2019 COMPARISON: NONE HISTORY: Knee pain TECHNIQUE: 3 views FINDINGS: There is a plate with transverse screw fixing old supracondylar fracture of the distal femu r. I see no acute fracture nor dislocation. Knee joint spaces are fairly normal. There is no sign of joint effusion. IMPRESSION: No acute abnormality of the right knee.
[2019-08-26] MEDS: SYMBICORT 160-4.5 MCG INHALER INHALATION SCH ×2 (20:11→20:13)
[2019-08-26 20:40] LABS: Glucose,Whole Blood 184 mg/dL (75-99)
--- NOTE | 2019-08-26 21:16 | P.CONS ---
History of Present Illness - Reason for Consult Consult date: 08/26/19 Pulmonary embolus - History of Present Illness The The patient is a 68-year-old white male, with overall well-controlled me dical problems at Baseline. The patient had been complaining of some shortness of breath with onset about 2 months ago, and slow gradual progression. Symptoms had worsened significantly over the past 3-4 days with orthopnea, as well as lower extremity swelling. He therefore came into the emergency room and had additional workup done. CT of the chest revealed probable small embolus in the right lower lobe. The patient also appeared to have evidence of CHF with bilateral pleural effusions, right greater than left, and vascular congestion. He was found to be coronavirus negative. He was thus admitted for further management on IV heparin. He denied any prior history of lower extremity or lung clots. No family history of any clotting disorders. There is no personal history of any malignancy. Patient states that he is overall sedentary at baseline does perform is ADLs. No history of any recent surgery, hospitalizations, trauma, hormonal supplementation or steroid use. No recent history of any prolonged car or plane travel. Consult was therefore placed for evaluation and recommendations Review of Systems Constitutional: Reports fatigue, Reports weakness Eyes: denies blurred vision, denies pain Ears: deny: decreased hearing, ear discharge, earache, tinnitus Ears, nose, mouth and throat: Denies headache, Denies sore throat Cardiovascular: Reports as per HPI, Reports orthopnea, Reports palpitations, Reports shortness of breath Respiratory: Reports dyspnea Gastrointestinal: Denies abdominal pain, Denies diarrhea, Denies nausea, Denies vomiting Genitourinary: Reports as per HPI Musculoskeletal: Reports as per HPI Integumentary: Reports foot/leg ulcers Neurological: Reports weakness Psychiatric: Denies anxiety, Denies depression Endocrine: Denies fatigue, Denies weight change Hematologic/Lymphatic: Reports as per HPI Past Medical History Past Medical History: Atrial Fibrillation, Coronary Artery Disease (CAD), CVA/TIA, Hyperlipidemia, Hypertension Additional Past Medical History / Comment(s): heart disease, angina History of Any Multi-Drug Resistant Organisms: None Reported Past Surgical History: Joint Replacement, Orthopedic Surgery Additional Past Surgical History / Comment(s): right knee, right hip replacements Past Anesthesia/Blood Transfusion Reactions: No Reported Reaction Smoking Status: Current every day smoker - Past Family History Father Family Medical History: Coronary Artery Disease (CAD) Mother Family Medical History: No Reported History Medications and Allergies Home Medications Medication Instructions Recorded Confirmed Type Naproxen Sodium [Aleve] 220 - 440 mg PO DAILY PRN 08/25/19 08/25/19 History Allergies Allergy/AdvReac Type Severity Reaction Status Date / Time No Known Allergies Allergy Verified 08/25/19 16:32 Physical Exam Vitals: Vital Signs Temp Pulse Pulse Resp BP BP Pulse Ox 08/26/19 11:32 96 16 117/84 96 08/26/19 11:13 100 08/26/19 11:05 96 08/26/19 07:57 97.5 F L 106 H 16 134/88 98 08/26/19 07:11 104 H 08/26/19 07:03 100 08/26/19 04:00 97.5 F L 100 18 119/71 95 08/26/19 00:00 104 H 18 128/72 94 L 08/25/19 20:00 97.0 F L 122 H 18 132/91 99 08/25/19 19:10 108 H 08/25/19 19:04 110 H 08/25/19 18:29 111 H 16 133/84 96 08/25/19 17:01 105 H 16 114/89 96 08/25/19 15:34 106 H 16 132/85 95 08/25/19 14:29 122 H 08/25/19 14:28 116 H 16 140/77 96 08/25/19 14:22 22 Intake and Output 08/25/19 08/26/19 08/26/19 22:59 06:59 14:59 Intake Total 82.853 900.092 Output Total 486 707 0754 Balance -300 -517.147 -224.908 Intake: Intake, IV Titration 82.853 160.092 Amount Heparin Sod,Pork in 0.45% 82.853 160.092 NaCl 25,000 unit In 0.45 % NaCl 1 250ml.bag @ 18 UNITS/KG/HR 13.472 mls/hr IV .[id number] [facility] Rx#: [id number] Oral 740 Output: Urine 848 [id number] 9868 Other: Voiding Method Urinal # Voids 1 Weight 74.843 kg 84.5 kg - Constitutional General appearance: no acute distress - EENT Eyes: EOMI, PERRLA ENT: hearing grossly normal, normal oropharynx - Neck Neck: no lymphadenopathy Thyroid: bilateral: normal size - Respiratory Respiratory: bilateral: diminished - Cardiovascular Rhythm: regular Heart sounds: normal: S1, S2 - Gastrointestinal General gastrointestinal: normal bowel sounds, soft - Integumentary Scab leg ulcers right lower extremity - Neurologic Neurologic: CNII-XII intact - Musculoskeletal Musculoskeletal: generalized weakness, strength equal bilaterally - Psychiatric Psychiatric: A&O x's 3, appropriate affect Results CBC & Chem 7: 08/26/19 04:26 08/26/19 04:26 Labs: Abnormal Lab Results - Last 24 Hours (Table) 08/25/19 08/25/19 08/25/19 Range/Units 14:20 14:20 14:20 Hgb 12.7 L (13.0-17.5) gm/dL MCHC 30.6 L (31.0-37.0) g/dL RDW 15.6 H (11.5-15.5) % PT 12.9 H (9.0-12.0) sec INR 1.3 H (<1.2) APTT (22.0-30.0) sec D-Dimer 2.84 H (<0.60) mg/L FEU Sodium 135 L (137-145) mmol/L Carbon Dioxide 17 L (22-30) mmol/L BUN 26 H (9-20) mg/dL Creatinine (0.66-1.25) mg/dL Glucose 140 H (74-99) mg/dL Plasma Lactic Acid Ari (0.7-2.0) mmol/L AST 126 H (17-59) U/L ALT 114 H (4-49) U/L Creatine Kinase 189 H (55-170) U/L Troponin I (0.000-0.034) ng/mL HDL Cholesterol (40-60) mg/dL 08/25/19 08/25/19 08/25/19 Range/Units 14:20 14:20 17:42 Hgb (13.0-17.5) gm/dL MCHC (31.0-37.0) g/dL RDW (11.5-15.5) % PT (9.0-12.0) sec INR (<1.2) APTT (22.0-30.0) sec D-Dimer (<0.60) mg/L FEU Sodium (137-145) mmol/L Carbon Dioxide (22-30) mmol/L BUN (9-20) mg/dL Creatinine (0.66-1.25) mg/dL Glucose (74-99) mg/dL Plasma Lactic Acid Ari 3.9 H* 2.2 H* (0.7-2.0) mmol/L AST (17-59) U/L ALT (4-49) U/L Creatine Kinase (55-170) U/L Troponin I 2.780 H* (0.000-0.034) ng/mL HDL Cholesterol (40-60) mg/dL 08/25/19 08/25/19 08/25/19 Range/Units 21:07 22:49 22:49 Hgb (13.0-17.5) gm/dL MCHC (31.0-37.0) g/dL RDW (11.5-15.5) % PT (9.0-12.0) sec INR (<1.2) APTT 52.5 H (22.0-30.0) sec D-Dimer (<0.60) mg/L FEU Sodium (137-145) mmol/L Carbon Dioxide (22-30) mmol/L BUN (9-20) mg/dL Creatinine (0.66-1.25) mg/dL Glucose (74-99) mg/dL Plasma Lactic Acid Ari 2.6 H* (0.7-2.0) mmol/L AST (17-59) U/L ALT (4-49) U/L Creatine Kinase (55-170) U/L Troponin I 2.760 H* (0.000-0.034) ng/mL HDL Cholesterol (40-60) mg/dL 08/26/19 08/26/19 08/26/19 Range/Units 00:39 04:26 04:26 Hgb 11.7 L (13.0-17.5) gm/dL MCHC 29.8 L (31.0-37.0) g/dL RDW 16.2 H (11.5-15.5) % PT (9.0-12.0) sec INR (<1.2) APTT (22.0-30.0) sec D-Dimer (<0.60) mg/L FEU Sodium (137-145) mmol/L Carbon Dioxide (22-30) mmol/L BUN (9-20) mg/dL Creatinine (0.66-1.25) mg/dL Glucose (74-99) mg/dL Plasma Lactic Acid Ari 2.4 H* (0.7-2.0) mmol/L AST (17-59) U/L ALT (4-49) U/L Creatine Kinase (55-170) U/L Troponin I 3.260 H* (0.000-0.034) ng/mL HDL Cholesterol (40-60) mg/dL 08/26/19 08/26/19 Range/Units 04:26 04:26 Hgb (13.0-17.5) gm/dL MCHC (31.0-37.0) g/dL RDW (11.5-15.5) % PT (9.0-12.0) sec INR (<1.2) APTT 44.6 H (22.0-30.0) sec D-Dimer (<0.60) mg/L FEU Sodium 134 L (137-145) mmol/L Carbon Dioxide (22-30) mmol/L BUN 28 H (9-20) mg/dL Creatinine 1.37 H (0.66-1.25) mg/dL Glucose 103 H (74-99) mg/dL Plasma Lactic Acid Ari (0.7-2.0) mmol/L AST 206 H (17-59) U/L ALT 206 H (4-49) U/L Creatine Kinase (55-170) U/L Troponin I (0.000-0.034) ng/mL HDL Cholesterol 31 L (40-60) mg/dL Chest x-ray: report reviewed CT scan - chest: report reviewed Assessment and Plan (1) Pulmonary embolism Narrative/Plan: The pt was found to have a small PE on CTA. It is not clear if his symptoms are due to the same, or another condition such as CHF. He is currently in IV heparin - This overall appears to be an unprovoked clot. Other than a sedentary lifestyle, which by itself would be a very soft risk factor, he denied any other provoking factors. - He would thus be recommended lifelong anticoagulation, as long as he tolerates it well - Check LE dopplers for baseline - He can be switched to PO at any point. One of the NOACs would be appropriate as long as he has coverage - I discussed hypercoagulable w/u with him. He was advised that the results would likely not impact his management, but could have implications for his family if positive. He is interested in the same. This will be ordered as an outpt - He has no suspicious s/s to suggest malignancy. His liver enzymes are elevated. Check CT AP. He has never had a colonoscopy, and is not aware if he has had a PSA either. Check PSA. He can be referred for routine colonoscopy as an outpt once he has completed 6 mths of anticoagulation - OK to d/c from the Heme standpoint whenever ok with the admitting service Current Visit: Yes Status: Acute Code(s): I26.99 - OTHER PULMONARY EMBOLISM WITHOUT ACUTE COR PULMONALE SNOMED Code(s): 29505190 (2) Congestive heart failure Narrative/Plan: Defer to the admitting service for further management Current Visit: Yes Status: Acute Code(s): I50.9 - HEART FAILURE, UNSPECIFIED SNOMED Code(s): 33770469 (3) Anemia aplastic aregenerative Narrative/Plan: Mild anemia at 11.7. Anemia w/u will be ordered Current Visit: Yes Status: Acute Code(s): D61.9 - APLASTIC ANEMIA, UNSPECIFIED SNOMED Code(s): 30826219
[2019-08-27 06:09] LABS: Glucose,Whole Blood 144 mg/dL (75-99)
[2019-08-27] MEDS: INSULIN ASPART (NovoLOG) 100 UNIT/ML VIAL SQ SCH ×4 (06:18→23:07)
[2019-08-27 06:19] LABS: Basophils % (A) 0 %; Eosinophils % (A) 0 %; HCT 37.2 % (39.0-53.0); HGB 11.5 gm/dL (13.0-17.5); Hypochromasia Marked; Lymphocytes # (A) 0.4 k/uL (1.0-4.8); Lymphocytes % (A) 6 %; MCH 27.4 pg (25.0-35.0); MCHC 30.8 g/dL (31.0-37.0); Mean Platelet Volume 8.2; Monocytes # (A) 0.2 k/uL (0-1.0); Monocytes % (A) 4 %; Neutrophils # (A) 5.4 k/uL (1.3-7.7); Neutrophils % (A) 89 %; Platelet Count 239 k/uL (150-450); RBC 4.19 m/uL (4.30-5.90); RDW 15.3 % (11.5-15.5)
[2019-08-27 06:26] LABS: Reticulocyte % 1.7 % (0.5-2.0)
[2019-08-27 06:40] LABS: INR 1.3 (<1.2); Partial Thromboplastin Time 48.2 sec (22.0-30.0); Prothrombin Time 12.6 sec (9.0-12.0)
[2019-08-27] MEDS: HEPARIN SOD,PORK IN 0.45% NACL 25,000 UNIT in 0.45% NACL 1 250ML.BAG IV SCH (06:53)
[2019-08-27 06:55] LABS: Albumin 3.2 g/dL (3.5-5.0); Calcium 8.6 mg/dL (8.4-10.2); Potassium 4.1 mmol/L (3.5-5.1); Total Bilirubin 0.9 mg/dL (0.2-1.3); Total Protein 6.5 g/dL (6.3-8.2)
--- NOTE | 2019-08-27 08:00 | US ---
EXAMINATION TYPE: US liver DATE OF EXAM: 08/27/2019 COMPARISON: NONE CLINICAL HISTORY: elevated liver enzymes. Elevated LFTs EXAM MEASUREMENTS: Liver Length: 14.1 cm Gallbladder Wall: 1.0 cm CBD: 0.4 cm Right Kidney: 10.2 x 4.2 x 4.3 cm Pancreas: Body wnl, head and tail gassed out Liver: Heterogeneous which may reflect some mild fatty infiltration. Gallbladder: Single gallstone, wall thickened with possible pericholecystic fluid Evidence for sonographic Moreno's sign: No CBD: wnl Right Kidney: wnl Incidental right pleural effusion IMPRESSION: 1. Cholelithiasis. 2. Mild fatty infiltration liver. 3. Note is made of a right pleural effusion.
[2019-08-27] MEDS: IOPAMIDOL CONTRAST (ORAL USE) VIAL PO PRN ×2 (08:04→09:10)
[2019-08-27] MEDS: FUROSEMIDE 10 MG/ML 4 ML VIAL IV SCH ×3 (08:07→23:07)
[2019-08-27] MEDS: methylPREDNISolone SOD SUCCI 40 MG/ML 1 ML VIAL IV SCH ×3 (08:07→23:07)
[2019-08-27] MEDS: IPRATROPIUM-ALBUTEROL 3 ML NEB INHALATION SCH ×4 (08:16→19:57)
[2019-08-27] MEDS: SYMBICORT 160-4.5 MCG INHALER INHALATION SCH ×2 (10:22→19:57)
[2019-08-27] MEDS: ASPIRIN 81 MG PO SCH (10:23)
[2019-08-27] MEDS: ATORVASTATIN 40 MG TAB PO SCH (10:23)
[2019-08-27] MEDS: CARVEDILOL 3.125 MG TAB PO SCH ×2 (10:23→17:26)
--- NOTE | 2019-08-27 10:39 | CT ---
EXAMINATION TYPE: CT abdomen pelvis w con DATE OF EXAM: 08/27/2019 COMPARISON: None HISTORY: 68 year-old male abnormal liver enzymes, abdominal distention TECHNIQUE: Contiguous axial scanning of the abdomen and pelvis following administration of 100 ml Iso zabrina 300 IV contrast. Delayed images through the kidneys and coronal/sagittal reconstructions perform ed. CT DLP: 1451.2 mGycm Automated exposure control for dose reduction was used. FINDINGS: Heart remains enlarged without pericardial effusion. Moderate right and small left pleural effusions are demonstrated with adjacent atelectasis. More pron ounced volume loss within the basilar right lower lobe is similar. The 7 mm left upper lobe pulmonary nodule and mediastinal lymphadenopathy seen on the recent 0 CT chest are not included in the [id number]. Scattered moderate to severe atherosclerotic plaque throughout the abdominal aorta and iliac arteries . There is an infrarenal AAA measuring up to 6.3 cm AP and 4.8 cm, refer to axial image 52 and 51. Ci rcumferential plaque narrows the patent lumen down to 2.2 cm. Aneurysm of the right common iliac artery at 2.4 cm and ectasia on the left up to 1.7 cm with focal m oderate atherosclerotic narrowing. There are unusual soft tissue lobulations either adjacent to or arising from the aorta measuring 2.8 cm in the aortocaval region below the renal artery takeoffs, 3.6 cm retroaortic at the L3 level, and 1.4 cm left periaortic also just below the takeoff of the renal arteries. The largest shows attenuation of 40 Hounsfield units, unchanged on the delayed kidney images. Otherwise, no abdominal pelvic lymphadenopathy is seen. Arterial phase imaging of the liver, adrenal glands, kidneys, spleen with anterior splenule, and panc reas show no gross abnormal body. Small 6 mm gallstone. Moderate stool burden. No pericolic inflammatory change. Generalized anasarca changes with presacral edema. No dipti ascites fluid. No free air. No dilated sm all bowel. Streak and beam hardening artifact from the patient's right hip arthroplasty and acetabular fixation hardware limits visualization of the pelvis. Bones: Hypertrophic facet arthropathy throughout. Age indeterminate, suspect chronic mild anterior w edge deformities of L2 and L3. IMPRESSION: 1. GENERALIZED ANASARCA CHANGE, CARDIA MEGALY, MODERATE RIGHT AND SMALL LEFT PLEURAL EFFUSIONS, AND P RESACRAL EDEMA. FINDINGS SUGGEST FLUID OVERLOAD STATE. CLINICALLY CORRELATE. 2. INFRARENAL AAA MEASURING 6.3 X 4.8 CM. CIRCUMFERENTIAL PLAQUE NARROWS THE LUMEN TO 2.2 CM. ANEURYS M/ECTASIA OF THE RIGHT AND LEFT COMMON ILIAC ARTERIES AND 2.4 AND 1.7 CM, RESPECTIVELY. 3. THREE UNUSUAL LOBULATIONS ADJACENT TO VERSUS ARISING FROM THE AORTA ALONG THE ANEURYSMAL SEGMENT M EASURING 3.6 CM, 2.8 CM, AND 1.4 CM. GIVEN THE LACK OF ENHANCEMENT, THE POSSIBILITY OF PLAQUE/THROMBU S FILLED SACCULAR ANEURYSMS ARE NOT EXCLUDED. THE PATIENT CAN BE EVALUATED BY VASCULAR SURGERY. 4. MEDIASTINAL LYMPHADENOPATHY AND 7 MM LEFT UPPER LOBE PULMONARY NODULE SEEN ON RECENT 08/25/2019 CT C HEST SHOULD BE REASSESSED AT A 3 MONTH FOLLOW-UP TO EXCLUDE AN AGGRESSIVE ETIOLOGY.
[2019-08-27 11:56] LABS: Glucose,Whole Blood 157 mg/dL (75-99)
--- NOTE | 2019-08-27 12:26 | P.PN ---
Subjective Progress Note Date: 08/27/19 Principal diagnosis: Shortness of breath, lower extremity edema 68-year-old white male, with history of emphysema, chronic and ongoing history of smoking, prior history of myocardial infarction, who has not seen a physician in the long time. Patient presented to the emergency department on 08/25/2019 with complaints of increasing shortness of breath for the past month, and i ncreasing swelling in his lower extremities, his edema continued to worsen, he developed florid blisters on his right lower extremity which eventually erupted and the skin is now open and weeping on his right lower leg. Denied any fever or chills, denied any chest pain, no cough, no wheezing, no palpitations. No nausea or vomiting, no diarrhea. Chest x-ray showed small right pleural effusion and trace left pleural effusion with bibasilar airspace disease, minimal central pulmonary vascular congestion and enlarged cardiac mediastinal silhouette. His lab work showed white blood cell count of 9.3, hemoglobin of 12.7, INR 1.3, d-dimer was elevated at 2.84, CTA chest showed questionable small pulmonary embolism involving the third order of the right pulmonary artery and the right lower lobe, background of COPD with severe cardiomegaly and bilateral pleural effusions. And nonspecific mediastinal lymphadenopathy. EKG showed sinus tachycardia with a rate of 116, with evidence of inferior and anterior infarct of undetermined age. Plasma lactic acid was 2.6 on admission, renal profile showed BUN of 26 and creatinine of 1.2, AST of 126, ALT of 114, alk phos of 116, troponins were 2.78, 2.76, and 3.26, proBNP was 15,004 100, COVID 19 was negative. Patient was started on IV diuretics, IV heparin for elevated troponins, cardiology consultation has been obtained, he was started on kathryn athing treatments. Echocardiogram showed severely impaired LV function with an EF of 20-25%, inferior hypokinesis, moderate to severe mitral regurgitation, [id number] tricuspid regurgitation, moderately severe pulmonary hypertension with right-sided pressures of 49.1 mmHg. The patient is seen today 08/27/2019 in follow-up on the selective care unit. He is currently sitting up in a chair at the bedside. Awake and alert in no acute distress. He is maintaining O2 saturation in the mid 90s on room air. He's been afebrile. Hemodynamically stable. White count 6.0. Hemoglobin 11.5. INR 1.3. Sodium 135. Potassium 4.1. Creatinine 1.19. AST 72. ALT 147. He remains on Symbicort, DuoNeb inhalations, IV Solu-Medrol. He is on IV diuretics. Heparin drip continues. Ultrasound of the liver reveals cholelithiasis. And mild fatty infiltration of liver. Right pleural effusion. Computed tomography scan of the abdomen revealed generalized anasarca, cardiomegaly, moderate right and small left pleural effusions, presacral edema. There is infrarenal abdominal aortic aneurysm measuring 6.3 x 4.8 cm. Circumferential plaque narrows the limited 2.2 cm. Aneurysms/ectasia of the ri ght and left common iliac arteries and 2.4 and 1.7 cm respectively. There is noted mediastinal lymphadenopathy and 7 mm left upper lobe pulmonary nodule seen on recent 08/25/2019 CT. Objective - Vital Signs Vital signs: Vital Signs Temp 96.8 F L 08/27/19 08:00 Pulse 96 08/27/19 11:31 Resp 16 08/27/19 08:00 BP 120/74 08/27/19 08:00 Pulse Ox 96 08/27/19 08:00 Intake & Output 08/26/19 08/27/19 08/27/19 18:59 06:59 18:59 Intake Total 1140.092 490 Output Total 1775 1025 Balance -634.908 -535 Weight 84.5 kg 89 kg Intake: Intake, IV Titration 160.092 250 Amount Heparin Sod,Pork in 0.45% 160.092 250 NaCl 25,000 unit In 0.45 % NaCl 1 250ml.bag @ 18 UNITS/KG/HR 13.472 mls/hr IV .[id number] [facility] Rx#: [id number] Oral 980 240 Output: Urine 1775 1025 Other: Voiding Method Urinal # Voids 0 - Exam GENERAL EXAM: Alert, pleasant, 68-year-old male patient, sitting up in in a chair at the bedside, on room air with a pulse ox of 96%, comfortable in no apparent distress. HEAD: Normocephalic/atraumatic. EYES: Normal reaction of pupils, equal size. Conjunctiva pink, sclera white. NOSE: Clear with pink turbinates. THROAT: No erythema or exudates. NECK: No masses, no JVD, no thyroid enlargement, no adenopathy. CHEST: No chest wall deformity. Symmetrical expansion. LUNGS: Equal air entry with bilateral posterior crackles right greater than left CVS: Regular rate and rhythm, normal S1 and S2, no gallops, no murmurs, no rubs ABDOMEN: Soft, nontender. No hepatosplenomegaly, normal bowel sounds, no guarding or rigidity. EXTREMITIES: No clubbing, 2+ lower extremity edema, left greater than right, with weeping open blisters on the right lower extremity no cyanosis, 2+ pulses and upper and lower extremities. MUSCULOSKELETAL: Muscle strength and tone normal. SPINE: No scoliosis or deformity SKIN: Weeping open blisters on right lower extremity CENTRAL NERVOUS SYSTEM: No focal deficits, tone is normal in all 4 extremities. PSYCHIATRIC: Alert and oriented -3. Appropriate affect. Intact judgment and insight. - Labs CBC & Chem 7: 08/27/19 05:47 08/27/19 05:47 Labs: Abnormal Lab Results - Last 24 Hours (Table) 08/26/19 08/26/19 08/27/19 Range/Units 16:30 20:39 05:47 RBC 4.19 L (4.30-5.90) m/uL Hgb 11.5 L (13.0-17.5) gm/dL Hct 37.2 L (39.0-53.0) % MCHC 30.8 L (31.0-37.0) g/dL Lymphocytes # 0.4 L (1.0-4.8) k/uL PT (9.0-12.0) sec INR (<1.2) APTT (22.0-30.0) sec Sodium (137-145) mmol/L BUN (9-20) mg/dL Glucose (74-99) mg/dL POC Glucose (mg/dL) 148 H 184 H (75-99) mg/dL AST (17-59) U/L ALT (4-49) U/L Albumin (3.5-5.0) g/dL 08/27/19 08/27/19 08/27/19 Range/Units 05:47 05:47 06:08 RBC (4.30-5.90) m/uL Hgb (13.0-17.5) gm/dL Hct (39.0-53.0) % MCHC (31.0-37.0) g/dL Lymphocytes # (1.0-4.8) k/uL PT 12.6 H (9.0-12.0) sec INR 1.3 H (<1.2) APTT 48.2 H (22.0-30.0) sec Sodium 135 L (137-145) mmol/L BUN 33 H (9-20) mg/dL Glucose 129 H (74-99) mg/dL POC Glucose (mg/dL) 144 H (75-99) mg/dL AST 72 H (17-59) U/L ALT 147 H (4-49) U/L Albumin 3.2 L (3.5-5.0) g/dL 08/27/19 Range/Units 11:50 RBC (4.30-5.90) m/uL Hgb (13.0-17.5) gm/dL Hct (39.0-53.0) % MCHC (31.0-37.0) g/dL Lymphocytes # (1.0-4.8) k/uL PT (9.0-12.0) sec INR (<1.2) APTT (22.0-30.0) sec Sodium (137-145) mmol/L BUN (9-20) mg/dL Glucose (74-99) mg/dL POC Glucose (mg/dL) 157 H (75-99) mg/dL AST (17-59) U/L ALT (4-49) U/L Albumin (3.5-5.0) g/dL Assessment and Plan Assessment: #1. Acute exacerbation of chronic obstructive pulmonary disease #2. Acute exacerbation of congestive heart failure with systolic dysfunction, echocardiogram showed severely impaired LV function with an EF of 20-25%, inferior hypokinesis, moderately enlarged right ventricle, moderate to severe mitral regurg, [id number] tricuspid regurg, and moderate pulmonary hypertension with right-sided pressures of 49.1 mmHg and IVC dilated with no significant inspiratory collapse with estimated right atrial pressure of greater than 15 mmHg #3. Elevated d-dimer, CTA showed findings suspicious for small pulmonary embolism involving the third order branch of the right pulmonary artery and the right lower lobe #4 Mediastinal lymphadenopathy and 7 mm left upper lobe pulmonary nodule. Computed tomography scan in 3 months recommended. #5 Generalized anasarca, cardiomegaly, moderate right and small left pleural effusions, presacral edema. Infrarenal abdominal aortic aneurysm measuring 6.3 x 4.8 cm, circumferential [id number]-[id number] the lumen to 2.2 cm. 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 #6. Chronic and ongoing history of smoking #7. History of chronic obstructive pulmonary disease #8. Previous history of myocardial infarction #9. Elevated liver enzymes #10. Mild lactic acidosis, resolved with IV hydration #11. Troponin elevation, of 2.78, 2.76, and 3.26, cardiology following #12. Hypertension #13. Hyperlipidemia #14 Medical noncompliance Plan: The patient was seen and evaluated by Dr. Rehman Noted 7 mm pulmonary nodule and mediastinal lymphadenopathy Plan for follow-up computed tomography scan in 3 months Continue pulmonary medications Continue diuretics Remains on a heparin drip We will continue to follow I, the cosigning physician, performed a history & physical examination of the patient. Lungs sounds with crackles in the posterior bases right greater than left Maintaining good O2 saturations in the 90s on room air. I discussed the assessment and plan of care with my nurse practitioner, Shanell Jc. I attest to the above note as dictated by her.
[2019-08-27 12:44] LABS: Free Kappa Lt Chain Qnt, Serum 3.87 mg/dL (0.33-1.94)
--- NOTE | 2019-08-27 12:55 | P.PN ---
Subjective Progress Note Date: 08/27/19 This pleasant 68-year-old gentleman with history of chronic tobacco use, prior AL has not seen a physician a long time. Percentage the hospital with symptoms of progressive dyspnea, and peripheral edema over the last month. Because of that he came to the emergency room and subsequently admitted. For the last few weeks he has been having worsening edema and worsening dyspnea. He also developed sores on his legs. He has no knowledge or documented history of diabetes or hypertension. He is a current smoker. Patient was found to have elevated troponins which peaked at around 3. Computed tomography scan of the chest in the emergency department revealed evidence of possible small pulmonary embolism with COPD and severe cardiomegaly with bilateral pleural effusions. 2- D echo with Doppler showed severely impaired LV systolic function with ejection fraction of 20-25% with inferior hypokinesis, moderately enlarged RV, severely dilated LA, mild AR, moderate to severe MR and [id number] TR. Labs this morning showed a BUN of 33 and creatinine 1.19. Patient is currently on aspirin 81 mg by mouth daily, Lipitor 80 mg by mouth daily, Lasix 40 mg IV push every 8 hours and carvedilol 3.125 mg by mouth daily. He is also on DuoNeb and IV steroids as well as heparin drip. He is overall feeling better with no clear complaints of orthopnea however states that he feels more comfortable sitting up. Continues to be dyspneic on exertion with lower extremity edema. Denies any complaints of chest discomfort. Evidently patient underwent computed tomography scan of the abdomen to assess the liver and was noted to have a 6.3 cm infrarenal AAA. Objective - Vital Signs Vital signs: Vital Signs Temp 96.8 F L 08/27/19 08:00 Pulse 90 08/27/19 12:00 Resp 16 08/27/19 12:00 BP 104/66 08/27/19 12:00 Pulse Ox 96 08/27/19 12:00 Intake & Output 08/26/19 08/27/19 08/27/19 18:59 06:59 18:59 Intake Total 1140.092 490 Output Total 1775 1025 Balance -634.90535 Weight 84.5 kg 89 kg Intake: Intake, IV Titration 160.092 250 Amount Heparin Sod,Pork in 0.45% 160.092 250 NaCl 25,000 unit In 0.45 % NaCl 1 250ml.bag @ 18 UNITS/KG/HR 13.472 mls/hr IV .[id number] [facility] Rx#: [id number] Oral 980 240 Output: Urine 1775 1025 Other: Voiding Method Urinal # Voids 0 - Exam PHYSICAL EXAMINATION: HEENT: Head is atraumatic, normocephalic. Pupils equal, round. Neck is supple. There is elevated jugular venous pressure. HEART EXAMINATION: Heart sounds regular, S1 and S2 with a holosystolic murmur at the apex radiating to the axilla and a systolic ejection murmur at the base. CHEST EXAMINATION: Lungs reveal diminished air entry bilaterally with crackles noted bilateral bases. No chest wall tenderness is noted on palpation or with deep breathing. ABDOMEN: Soft, nontender mildly distended. Bowel sounds are heard. No organomegaly noted. EXTREMITIES: 1+ peripheral pulses with evidence of +2 peripheral edema and no calf tenderness noted. NEUROLOGIC patient is awake, alert and oriented x3. . - Labs CBC & Chem 7: 08/27/19 05:47 08/27/19 05:47 Labs: Abnormal Lab Results - Last 24 Hours (Table) 08/26/19 08/26/19 08/27/19 Range/Units 16:30 20:39 05:47 RBC 4.19 L (4.30-5.90) m/uL Hgb 11.5 L (13.0-17.5) gm/dL Hct 37.2 L (39.0-53.0) % MCHC 30.8 L (31.0-37.0) g/dL Lymphocytes # 0.4 L (1.0-4.8) k/uL PT (9.0-12.0) sec INR (<1.2) APTT (22.0-30.0) sec Sodium (137-145) mmol/L BUN (9-20) mg/dL Glucose (74-99) mg/dL POC Glucose (mg/dL) 148 H 184 H (75-99) mg/dL AST (17-59) U/L ALT (4-49) U/L Albumin (3.5-5.0) g/dL Free [place] LC, Quant (0.33-1.94) mg/dL 08/27/19 08/27/19 08/27/19 Range/Units 05:47 05:47 05:47 RBC (4.30-5.90) m/uL Hgb (13.0-17.5) gm/dL Hct (39.0-53.0) % MCHC (31.0-37.0) g/dL Lymphocytes # (1.0-4.8) k/uL PT 12.6 H (9.0-12.0) sec INR 1.3 H (<1.2) APTT 48.2 H (22.0-30.0) sec Sodium 135 L (137-145) mmol/L BUN 33 H (9-20) mg/dL Glucose 129 H (74-99) mg/dL POC Glucose (mg/dL) (75-99) mg/dL AST 72 H (17-59) U/L ALT 147 H (4-49) U/L Albumin 3.2 L (3.5-5.0) g/dL Free [place] LC, Quant 3.87 H (0.33-1.94) mg/dL 08/27/19 08/27/19 Range/Units 06:08 11:50 RBC (4.30-5.90) m/uL Hgb (13.0-17.5) gm/dL Hct (39.0-53.0) % MCHC (31.0-37.0) g/dL Lymphocytes # (1.0-4.8) k/uL PT (9.0-12.0) sec INR (<1.2) APTT (22.0-30.0) sec Sodium (137-145) mmol/L BUN (9-20) mg/dL Glucose (74-99) mg/dL POC Glucose (mg/dL) 144 H 157 H (75-99) mg/dL AST (17-59) U/L ALT (4-49) U/L Albumin (3.5-5.0) g/dL Free [place] LC, Quant (0.33-1.94) mg/dL Assessment and Plan Assessment: #1 acute and chronic systolic congestive heart failure with symptoms of progressive dyspnea and peripheral edema #2 troponin elevation with no clear chest pain which could be related to heart failure however echocardiogram shows segmental wall motion abnormalities as underlying ischemia is a possibility at this time #3 questionable pulmonary embolism although cannot explain all the symptoms reportedaCTangiogram #4 6.3 cm infrarenal AAA #5 history of chronic tobacco use #6 noncompliance Plan: From cardiology's perspective we will continue IV Lasix. We will add an WES inhibitor. Keep the patient nothing by mouth after midnight. Continue to monitor renal function and electrolytes. Depending on patient's clinical status patient may be scheduled for cardiac catheterization tomorrow with Dr. Saldana. We will continue to follow the patient closely and provide further recommendations accordingly. NIPPLE THREADER note has been reviewed, I agree with a documented findings and plan of care. Patient was seen and examined.
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
[2019-08-27] MEDS: LISINOPRIL 2.5 MG TAB PO SCH (13:53)
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
--- NOTE | 2019-08-27 15:54 | P.PN ---
Subjective Progress Note Date: 08/27/19 Principal diagnosis: unprovoked PE In f/u pt doing good, breathing better, getting around room without physical difficulty, no bleeding in heparin drip Objective - Vital Signs Vital signs: Vital Signs Temp 96.8 F L 08/27/19 08:00 Pulse 90 08/27/19 12:00 Resp 16 08/27/19 12:00 BP 104/66 08/27/19 12:00 Pulse Ox 96 08/27/19 12:00 Intake & Output 08/26/19 08/27/19 08/27/19 18:59 06:59 18:59 Intake Total 1140.092 490 500 Output Total 1775 1025 300 Balance -634.908 -535 200 Weight 84.5 kg 89 kg Intake: Intake, IV Titration 160.092 250 Amount Heparin Sod,Pork in 0.45% 160.092 250 NaCl 25,000 unit In 0.45 % NaCl 1 250ml.bag @ 18 UNITS/KG/HR 13.472 mls/hr IV .[id number] [facility] Rx#: [id number] Oral 980 240 500 Output: Urine 1775 1025 300 Other: Voiding Method Urinal # Voids 0 - Constitutional General appearance: Present: average body habitus, cooperative, no acute distress - EENT Eyes: Present: anicteric sclerae, EOMI ENT: Present: hearing grossly normal - Respiratory Details: resp even and unlabored Respiratory: bilateral: diminished - Cardiovascular Rhythm: regular Heart sounds: normal: S1, S2 Abnormal Heart Sounds: Present: systolic murmur - Gastrointestinal General gastrointestinal: Present: normal bowel sounds, soft - Musculoskeletal Musculoskeletal: Present: strength equal bilaterally - Psychiatric Psychiatric: Present: A&O x's 3, appropriate affect, intact judgment & insight - Labs CBC & Chem 7: 08/27/19 05:47 08/27/19 05:47 Labs: Abnormal Lab Results - Last 24 Hours (Table) 08/26/19 08/26/19 08/27/19 Range/Units 16:30 20:39 05:47 RBC 4.19 L (4.30-5.90) m/uL Hgb 11.5 L (13.0-17.5) gm/dL Hct 37.2 L (39.0-53.0) % MCHC 30.8 L (31.0-37.0) g/dL Lymphocytes # 0.4 L (1.0-4.8) k/uL PT (9.0-12.0) sec INR (<1.2) APTT (22.0-30.0) sec Sodium (137-145) mmol/L BUN (9-20) mg/dL Glucose (74-99) mg/dL POC Glucose (mg/dL) 148 H 184 H (75-99) mg/dL AST (17-59) U/L ALT (4-49) U/L Albumin (3.5-5.0) g/dL Free [place] LC, Quant (0.33-1.94) mg/dL 08/27/19 08/27/19 08/27/19 Range/Units 05:47 05:47 05:47 RBC (4.30-5.90) m/uL Hgb (13.0-17.5) gm/dL Hct (39.0-53.0) % MCHC (31.0-37.0) g/dL Lymphocytes # (1.0-4.8) k/uL PT 12.6 H (9.0-12.0) sec INR 1.3 H (<1.2) APTT 48.2 H (22.0-30.0) sec Sodium 135 L (137-145) mmol/L BUN 33 H (9-20) mg/dL Glucose 129 H (74-99) mg/dL POC Glucose (mg/dL) (75-99) mg/dL AST 72 H (17-59) U/L ALT 147 H (4-49) U/L Albumin 3.2 L (3.5-5.0) g/dL Free [place] LC, Quant 3.87 H (0.33-1.94) mg/dL 08/27/19 08/27/19 Range/Units 06:08 11:50 RBC (4.30-5.90) m/uL Hgb (13.0-17.5) gm/dL Hct (39.0-53.0) % MCHC (31.0-37.0) g/dL Lymphocytes # (1.0-4.8) k/uL PT (9.0-12.0) sec INR (<1.2) APTT (22.0-30.0) sec Sodium (137-145) mmol/L BUN (9-20) mg/dL Glucose (74-99) mg/dL POC Glucose (mg/dL) 144 H 157 H (75-99) mg/dL AST (17-59) U/L ALT (4-49) U/L Albumin (3.5-5.0) g/dL Free [place] LC, Quant (0.33-1.94) mg/dL - Imaging and Cardiology CT scan - abdomen: report reviewed CT scan - pelvis: report reviewed US - abdomen: report reviewed Assessment and Plan (1) Pulmonary embolism Narrative/Plan: Unprovoked. 1 year anticoagulation. Hypercoaguable work up PSA 3.1 Recommend colonoscopy after 6 mo anticoagulation as an age related cancer screen-pt has never had one CTAP reviewed with pt. Small rt pleural effusion, some slightly enlarged medistinal LN, soft tissue abnormality surrounding AAA, no other adenopathy or m asses. Recommend Vascular evaluation. US liver-fatty infiltrate. All of the above was discussed with pt. He will f/u with Hem/Onc outpatient. Current Visit: Yes Status: Acute Priority: High Code(s): I26.99 - OTHER PULMONARY EMBOLISM WITHOUT ACUTE COR PULMONALE SNOMED Code(s): 18603314 Plan: Anemia and paraproteinemia labs still pending. F/U to results
[2019-08-27 16:53] LABS: Glucose,Whole Blood 135 mg/dL (75-99)
[2019-08-27 16:57] LABS: Ferritin 35.5 ng/mL (22.0-322.0)
--- NOTE | 2019-08-27 17:05 | P.PN ---
Subjective Progress Note Date: 08/27/19 Principal diagnosis: Shortness of breath Patient was seen and examined. No acute events overnight. Patient reports slight improvement in his breathing since yesterday. He also reports improved swelling and his lower extremities. He denies any chest pain or palpitations. No nausea or vomiting. No fever or chills. Patient reports chemo that was placed in his knee many years back after orthopedic procedure. Patient reports open wound regarding the chemo and serous sanguinous drainage. Objective - Vital Signs Vital signs: Vital Signs Temp 96.9 F L 08/27/19 16:32 Pulse 86 08/27/19 16:32 Resp 18 08/27/19 16:32 BP 106/65 08/27/19 16:32 Pulse Ox 94 L 08/27/19 16:32 Intake & Output 08/26/19 08/27/19 08/27/19 18:59 06:59 18:59 Intake Total 1140.092 490 500 Output Total 1775 1025 300 Balance -634.908 -535 200 Weight 84.5 kg 89 kg Intake: Intake, IV Titration 160.092 250 Amount Heparin Sod,Pork in 0.45% 160.092 250 NaCl 25,000 unit In 0.45 % NaCl 1 250ml.bag @ 18 UNITS/KG/HR 13.472 mls/hr IV .[id number] [facility] Rx#: [id number] Oral 980 240 500 Output: Urine 1775 1025 300 Other: Voiding Method Urinal # Voids 0 - Exam General: [non toxic], [no distress], [appears at stated age] Derm: [warm], [dry] Head: [atraumatic], [normocephalic], [symmetric] Eyes: [EOMI], [no lid lag], [anicteric sclera] Mouth: [no lip lesion], [mucus membranes moist] Cardiovascular: [S1S2 reg], [holosystolic murmur], [positive DP pulse bilateral], Lungs: [decreased breath sounds bilateral], [Rales bilaterally with crackles at the bases] , [no accessory muscle use] Abdominal: [soft], [ nontender to palpation], [no guarding], [no appreciable organomegaly] Ext: [no gross muscle atrophy], [2+ pitting lower extremity edema with weeping on the right lower extremity], [no contractures], [open sore over the right knee] Neuro: [no focal neuro deficits] Psych: [Alert], [oriented], [appropriate affect] - Labs CBC & Chem 7: 08/27/19 05:47 08/27/19 05:47 Labs: Abnormal Lab Results - Last 24 Hours (Table) 08/26/19 08/27/19 08/27/19 Range/Units 20:39 05:47 05:47 RBC 4.19 L (4.30-5.90) m/uL Hgb 11.5 L (13.0-17.5) gm/dL Hct 37.2 L (39.0-53.0) % MCHC 30.8 L (31.0-37.0) g/dL Lymphocytes # 0.4 L (1.0-4.8) k/uL PT 12.6 H (9.0-12.0) sec INR 1.3 H (<1.2) APTT 48.2 H (22.0-30.0) sec Sodium (137-145) mmol/L BUN (9-20) mg/dL Glucose (74-99) mg/dL POC Glucose (mg/dL) 184 H (75-99) mg/dL AST (17-59) U/L ALT (4-49) U/L Albumin (3.5-5.0) g/dL Free [place] LC, Quant (0.33-1.94) mg/dL 08/27/19 08/27/19 08/27/19 Range/Units 05:47 05:47 06:08 RBC (4.30-5.90) m/uL Hgb (13.0-17.5) gm/dL Hct (39.0-53.0) % MCHC (31.0-37.0) g/dL Lymphocytes # (1.0-4.8) k/uL PT (9.0-12.0) sec INR (<1.2) APTT (22.0-30.0) sec Sodium 135 L (137-145) mmol/L BUN 33 H (9-20) mg/dL Glucose 129 H (74-99) mg/dL POC Glucose (mg/dL) 144 H (75-99) mg/dL AST 72 H (17-59) U/L ALT 147 H (4-49) U/L Albumin 3.2 L (3.5-5.0) g/dL Free [place] LC, Quant 3.87 H (0.33-1.94) mg/dL 08/27/19 08/27/19 Range/Units 11:50 16:51 RBC (4.30-5.90) m/uL Hgb (13.0-17.5) gm/dL Hct (39.0-53.0) % MCHC (31.0-37.0) g/dL Lymphocytes # (1.0-4.8) k/uL PT (9.0-12.0) sec INR (<1.2) APTT (22.0-30.0) sec Sodium (137-145) mmol/L BUN (9-20) mg/dL Glucose (74-99) mg/dL POC Glucose (mg/dL) 157 H 135 H (75-99) mg/dL AST (17-59) U/L ALT (4-49) U/L Albumin (3.5-5.0) g/dL Free [place] LC, Quant (0.33-1.94) mg/dL Assessment and Plan Assessment: Shortness of breath Pulmonary embolus Troponin elevation Acute CHF exacerbation Acute COPD exacerbation Infrarenal AAA aneurysm Right knee pain likely chronic osteomyelitis, possible infected hardware Lactic acidosis Transaminitis History of COPD Patient's shortness of breath is multifactorial. Differentials include pulmonary embolus, advanced COPD, CHF exacerbation. CTA chest shows small PE involving the third order branches of the right pulmonary artery, COPD with severe cardiomegaly bilateral pleural effusions. Lower extremity duplex negative. Patient will be continued on heparin drip for his diagnosis of PE. Anemia and paraprotein labs ordered by hematology. Pulmonology and hematology has been consulted for further management. His troponin elevation of 2.78, 2.76, 3.26 with EKG showing sinus tachycardia could be related to demand ischemia or troponin leak from CHF versus non-ST elevation IN. Telemetry monitoring as ordered. He will be continued on heparin drip as above. He will be started on aspirin. Coreg has been started by cardiology. Discussed with Dr. Saldana, possible cardiac catheterization tomorrow. His CTA chest is suggested of congestive heart failure exacerbation. Echo cardiac shows EF 20-25% with borderline concentric LVH. Patient be continued on Lasix 40 mg IV 3 times a day. Strict intake and outtake will be be ordered. Daily weights will be performed. He has been started on beta teri as above. He will need WES inhibitor and Aldactone prior to discharge. Consider AICD placement depending on cardiology recommendations. Patient will be started on Symbicort, DuoNeb scheduled and as needed for shortness of breath and wheezing. He will be started on Solu-Medrol. Pulmonology is following the patient. Infrarenal aneurysm greater than [address] abdomen and pelvis. His blood pressure is relatively under control. Vascular surgery has been consulted for further management of this problem. Appears to have deformity with previous history of chemo placement. Knee x-ray shows no acute abnormality. Case was discussed with orthopedic surgery who recommends transfer for orthopedic trauma evaluation. We will attempt to stabilize the patient with regard to his CHF, COPD and possible non-ST elevation IN prior to exploring transfer to tertiary facility. Infectious disease has been consulted and ESR and CRP has been ordered. Patient had elevated lactic acid of 3.9, 2.4, 1.7. This is likely related to dehydration. He was given 1 L bolus in the ED. There are no clear signs of infection at this time. His most recent lactic acid is within normal limits. Patient has elevated AST of 126-206-72, ALT of 114-206-147. This is of unknown significance. Lipid panel and hepatic panel is within normal limits. Liver ultrasound shows mild fatty liver. Repeat CMP tomorrow morning. CTA chest is suggestive of a chronic COPD. He will be given DuoNeb as needed for shortness of breath and wheezing. Solu- Medrol has been started by pulmonology. Start Symbicort. [Patient admitted for CHF exacerbation, continuing IV diuresis. Found to have elevated troponins and probable PE, continued on heparin drip, possible cardiac cath tomorrow. Orthopedic surgery recommends transfer for Ortho trauma eval of right knee. Vascular surgery consulted for infrarenal AAA aneurysm. He is pending clinical improvement. We will attempt to transfer the patient after his workup for NSTEMI, and stabilization of his CHF and COPD.]
[2019-08-27 17:06] LABS: % Iron Saturation 4.16 (15.00-50.00)
[2019-08-27 17:36] LABS: Hemoglobin A1C 5.8 % (4.0-6.0)
[2019-08-27 19:47] LABS: Protein, Total 6.4 g/dL (6.2-8.2)
[2019-08-27 20:41] LABS: Glucose,Whole Blood 183 mg/dL (75-99)
[2019-08-28] MEDS: HEPARIN SOD,PORK IN 0.45% NACL 25,000 UNIT in 0.45% NACL 1 250ML.BAG IV SCH ×2 (01:40→18:11)
[2019-08-28 06:08] LABS: Glucose,Whole Blood 121 mg/dL (75-99)
[2019-08-28] MEDS: INSULIN ASPART (NovoLOG) 100 UNIT/ML VIAL SQ SCH ×4 (06:22→22:59)
[2019-08-28 06:53] LABS: Anisocytosis Slight; Basophils % (A) 0 %; Eosinophils % (A) 0 %; HCT 37.4 % (39.0-53.0); HGB 11.1 gm/dL (13.0-17.5); Hypochromasia Marked; Lymphocytes # (A) 0.4 k/uL (1.0-4.8); Lymphocytes % (A) 4 %; MCH 25.8 pg (25.0-35.0); MCHC 29.7 g/dL (31.0-37.0); MCV 86.9 fL (80.0-100.0); Mean Platelet Volume 8.3; Monocytes # (A) 0.5 k/uL (0-1.0); Monocytes % (A) 6 %; Neutrophils # (A) 7.7 k/uL (1.3-7.7); Neutrophils % (A) 89 %; Platelet Count 245 k/uL (150-450); RDW 16.1 % (11.5-15.5); WBC 8.7 k/uL (3.8-10.6)
[2019-08-28 07:10] LABS: Albumin 3.3 g/dL (3.5-5.0); Calcium 8.6 mg/dL (8.4-10.2); Potassium 4.6 mmol/L (3.5-5.1); Total Bilirubin 0.8 mg/dL (0.2-1.3); Total Protein 6.5 g/dL (6.3-8.2)
[2019-08-28 08:18] LABS: C Reactive Protein 20.2 mg/L (<10.0)
[2019-08-28] MEDS: SYMBICORT 160-4.5 MCG INHALER INHALATION SCH ×2 (08:22→20:14)
[2019-08-28] MEDS: IPRATROPIUM-ALBUTEROL 3 ML NEB INHALATION SCH ×4 (08:22→20:14)
[2019-08-28] MEDS ORDERED: ASPIRIN 325 MG TAB PO STA (08:27)
[2019-08-28] MEDS ORDERED: ATORVASTATIN 80 MG TAB PO STA (08:27)
[2019-08-28] MEDS ORDERED: NITROGLYCERIN SL TABS 0.4 MG TAB SUBLINGUAL PRN (08:27)
[2019-08-28] MEDS ORDERED: SODIUM CHLORIDE 0.9% 1,000 ML in EMPTY BAG 1 BAG IV ONE (08:27)
[2019-08-28] MEDS ORDERED: ALPRAZolam 0.25 MG TAB PO PRN (08:27)
[2019-08-28] MEDS ORDERED: ALPRAZolam 0.5 MG TAB PO PRN (08:27)
[2019-08-28] MEDS: CARVEDILOL 3.125 MG TAB PO SCH (09:19)
[2019-08-28] MEDS: LISINOPRIL 2.5 MG TAB PO SCH (09:19)
[2019-08-28] MEDS: methylPREDNISolone SOD SUCCI 40 MG/ML 1 ML VIAL IV SCH ×3 (09:19→22:58)
[2019-08-28 09:56] LABS: Erythrocyte Sedimentation Rate 5 mm/hr (0-15)
[2019-08-28] MEDS ORDERED: LIDOCAINE 1% INJ 10MG/ML (20 ML MDV) ONE (11:10)
[2019-08-28] MEDS ORDERED: VERAPAMIL 2.5 MG/ML 2 ML AMP ONE (11:10)
[2019-08-28] MEDS: ASPIRIN 81 MG PO SCH (11:24)
[2019-08-28] MEDS: ATORVASTATIN 40 MG TAB PO SCH (11:24)
[2019-08-28] MEDS ORDERED: HEPARIN SODIUM 1,000 UN/ML (10ML VL) ONE (11:24)
[2019-08-28] MEDS ORDERED: fentaNYL (PF) 50 MCG/ML 2 ML AMP ONE (11:26)
[2019-08-28] MEDS ORDERED: fentaNYL (PF) 50 MCG/ML 2 ML AMP IVP ONE (11:50)
[2019-08-28] MEDS ORDERED: LIDOCAINE 1% INJ 10MG/ML (20 ML MDV) SQ ONE (11:50)
[2019-08-28] MEDS ORDERED: IV FLUID CONTINUATION 1,000 ML IV ONE (11:51)
[2019-08-28] MEDS ORDERED: VERAPAMIL SYRINGE (5 MG/10 ML) INTRAARTER ONE (11:51)
[2019-08-28] MEDS ORDERED: IOPAMIDOL-370 125ML BTL INJ ONE (12:12)
[2019-08-28] MEDS ORDERED: RX INFO: IV CONTRAST WAS GIVEN 1 EACH MISC MISCELLANE PRN (12:28)
[2019-08-28] MEDS ORDERED: SODIUM CHLORIDE 0.9% 1,000 ML IV SCH (12:30)
[2019-08-28 12:31] LABS: O2 Sat Blood Gas 39.6 %
[2019-08-28 12:33] LABS: O2 Sat Blood Gas 95.9 %
[2019-08-28 12:34] LABS: O2 Sat Blood Gas 48.6 %
[2019-08-28] MEDS ORDERED: BENZOCAINE SPRAY 1 CAN MUCOUS MEM ONE (12:37)
[2019-08-28] MEDS ORDERED: MIDAZOLAM 2 MG/2 ML VIAL IV ONE (12:38)
[2019-08-28 13:11] LABS: Glucose,Whole Blood 128 mg/dL (75-99)
--- NOTE | 2019-08-28 13:14 | P.PN ---
Progress Note - Text Progress Note Date: 08/28/19 Attempted to see patient this morning, however he had gone down for a cardiac catheterization. Ankle brachial index was completed and reviewed, Right YANIRA 0.64 and left YANIRA 0.80. Orthopedic and internal medicine notes reviewed. Discussions have included once patient is stabilized they recommend transfer to tertiary center for orthopedics surgery of the exposed chemo in the patient's right knee. I did discuss with that if they were going to transfer the patient when medically stable to a tertiary center for further orthopedic evaluation and surgery, Dr. Acosta had recommended to consider Steph[facility] Lambert so vascular surgery can continue to follow the patient regarding abdominal aortic aneurysm and peripheral arterial disease. At this time no vascular surgical intervention is indicated, once patient is medically stable vascular surgery will reevaluate and discuss any future vascular surgical interventions with the patient. Further recommendations to follow. The above dictated assessment and findings were discussed with Dr. Verdugo. The impression and plan of care have been directed as dictated.
[2019-08-28 13:28] LABS: Albumin 3.23 g/dL (3.80-4.90); Gamma Globulin 1.11 g/dL (0.70-1.50)
--- NOTE | 2019-08-28 13:30 | P.PN ---
Subjective Progress Note Date: 08/28/19 Principal diagnosis: Shortness of breath, lower extremity edema 68-year-old white male, with history of emphysema, chronic and ongoing history of smoking, prior history of myocardial infarction, who has not seen a physician in the long time. Patient presented to the emergency department on 08/25/2019 with complaints of increasing shortness of breath for the past month, and i ncreasing swelling in his lower extremities, his edema continued to worsen, he developed florid blisters on his right lower extremity which eventually erupted and the skin is now open and weeping on his right lower leg. Denied any fever or chills, denied any chest pain, no cough, no wheezing, no palpitations. No nausea or vomiting, no diarrhea. Chest x-ray showed small right pleural effusion and trace left pleural effusion with bibasilar airspace disease, minimal central pulmonary vascular congestion and enlarged cardiac mediastinal silhouette. His lab work showed white blood cell count of 9.3, hemoglobin of 12.7, INR 1.3, d-dimer was elevated at 2.84, CTA chest showed questionable small pulmonary embolism involving the third order of the right pulmonary artery and the right lower lobe, background of COPD with severe cardiomegaly and bilateral pleural effusions. And nonspecific mediastinal lymphadenopathy. EKG showed sinus tachycardia with a rate of 116, with evidence of inferior and anterior infarct of undetermined age. Plasma lactic acid was 2.6 on admission, renal profile showed BUN of 26 and creatinine of 1.2, AST of 126, ALT of 114, alk phos of 116, troponins were 2.78, 2.76, and 3.26, proBNP was 15,004 100, COVID 19 was negative. Patient was started on IV diuretics, IV heparin for elevated troponins, cardiology consultation has been obtained, he was started on kathryn athing treatments. Echocardiogram showed severely impaired LV function with an EF of 20-25%, inferior hypokinesis, moderate to severe mitral regurgitation, [id number] tricuspid regurgitation, moderately severe pulmonary hypertension with right-sided pressures of 49.1 mmHg. The patient is seen today 08/27/2019 in follow-up on the selective care unit. He is currently sitting up in a chair at the bedside. Awake and alert in no acute distress. He is maintaining O2 saturation in the mid 90s on room air. He's been afebrile. Hemodynamically stable. White count 6.0. Hemoglobin 11.5. INR 1.3. Sodium 135. Potassium 4.1. Creatinine 1.19. AST 72. ALT 147. He remains on Symbicort, DuoNeb inhalations, IV Solu-Medrol. He is on IV diuretics. Heparin drip continues. Ultrasound of the liver reveals cholelithiasis. And mild fatty infiltration of liver. Right pleural effusion. Computed tomography scan of the abdomen revealed generalized anasarca, cardiomegaly, moderate right and small left pleural effusions, presacral edema. There is infrarenal abdominal aortic aneurysm measuring 6.3 x 4.8 cm. Circumferential plaque narrows the limited 2.2 cm. Aneurysms/ectasia of the ri ght and left common iliac arteries and 2.4 and 1.7 cm respectively. There is noted mediastinal lymphadenopathy and 7 mm left upper lobe pulmonary nodule seen on recent 08/25/2019 CT. The patient is seen today 08/28/2019 in follow-up on the selective care unit. He is currently resting flat in bed. Drowsy from recent cardiac catheterization. He is maintaining O2 saturations in the 90s on room air. He's afebrile. Hemodynamically stable. White count 8.7. Hemoglobin 11.1. Sodium 134. Potassium 4.6. Creatinine 1.19. Catheterization results pending but according to staff there is significant disease. The patient was seen by orthopedics yesterday regarding the open wound on the lateral aspect of the right knee where there is granulation tissue surrounding it and the screw is visible but no plans for intervention. They do suspect osteomyelitis of the right distal femur and recommended transfer to tertiary care facility for workup by orthopedic trauma and vascular. Vascular here recommended transfer as well once medically stable. He remains on bronchodilators, IV diuretics. We will add Kefzol. Objective - Vital Signs Vital signs: Vital Signs Temp 97.7 F 08/28/19 08:00 Pulse 100 08/28/19 08:32 Resp 20 08/28/19 08:00 BP 116/66 08/28/19 08:00 Pulse Ox 99 08/28/19 08:00 Intake & Output 08/27/19 08/28/19 08/28/19 18:59 06:59 18:59 Intake Total 740 150 Output Total 300 1900 Balance 440 -1900 150 Weight 88.5 kg Intake: IV 150 Oral 740 Output: Urine 300 1900 Other: Voiding Method Urinal Urinal # Voids 0 1 2 - Exam GENERAL EXAM: Alert, pleasant, 68-year-old male patient, resting in bed post heart catheterization, on room air, comfortable in no apparent distress. HEAD: Normocephalic/atraumatic. EYES: Normal reaction of pupils, equal size. Conjunctiva pink, sclera white. NOSE: Clear with pink turbinates. THROAT: No erythema or exudates. NECK: No masses, no JVD, no thyroid enlargement, no adenopathy. CHEST: No chest wall deformity. Symmetrical expansion. LUNGS: Equal air entry with bilateral posterior crackles right greater than left CVS: Regular rate and rhythm, normal S1 and S2, no gallops, no murmurs, no rubs ABDOMEN: Soft, nontender. No hepatosplenomegaly, normal bowel sounds, no guarding or rigidity. EXTREMITIES: No clubbing, 2+ lower extremity edema, left greater than right, with weeping open blisters on the right lower extremity no cyanosis, 2+ pulses and upper and lower extremities. MUSCULOSKELETAL: Muscle strength and tone normal. SPINE: No scoliosis or deformity SKIN: Weeping open blisters on right lower extremity, open wound with exposed screw on the lateral right knee CENTRAL NERVOUS SYSTEM: No focal deficits, tone is normal in all 4 extremities. PSYCHIATRIC: Alert and oriented -3. Appropriate affect. Intact judgment and insight. - Labs CBC & Chem 7: 08/28/19 06:19 08/28/19 06:19 Labs: Abnormal Lab Results - Last 24 Hours (Table) 08/27/19 08/27/19 08/27/19 Range/Units 05:47 16:51 20:40 Hgb (13.0-17.5) gm/dL Hct (39.0-53.0) % MCHC (31.0-37.0) g/dL RDW (11.5-15.5) % Lymphocytes # (1.0-4.8) k/uL APTT (22.0-30.0) sec Sodium (137-145) mmol/L BUN (9-20) mg/dL Glucose (74-99) mg/dL POC Glucose (mg/dL) 135 H 183 H (75-99) mg/dL Iron 15 L (65-175) ug/dL % Saturation 4.16 L (15.00-50.00) ALT (4-49) U/L C-Reactive Protein (<10.0) mg/L Albumin (3.5-5.0) g/dL 08/28/19 08/28/19 08/28/19 Range/Units 00:53 06:06 06:19 Hgb 11.1 L (13.0-17.5) gm/dL Hct 37.4 L (39.0-53.0) % MCHC 29.7 L (31.0-37.0) g/dL RDW 16.1 H (11.5-15.5) % Lymphocytes # 0.4 L (1.0-4.8) k/uL APTT 46.1 H (22.0-30.0) sec Sodium (137-145) mmol/L BUN (9-20) mg/dL Glucose (74-99) mg/dL POC Glucose (mg/dL) 121 H (75-99) mg/dL Iron (65-175) ug/dL % Saturation (15.00-50.00) ALT (4-49) U/L C-Reactive Protein (<10.0) mg/L Albumin (3.5-5.0) g/dL 08/28/19 08/28/19 Range/Units 06:19 13:09 Hgb (13.0-17.5) gm/dL Hct (39.0-53.0) % MCHC (31.0-37.0) g/dL RDW (11.5-15.5) % Lymphocytes # (1.0-4.8) k/uL APTT (22.0-30.0) sec Sodium 134 L (137-145) mmol/L BUN 37 H (9-20) mg/dL Glucose 114 H (74-99) mg/dL POC Glucose (mg/dL) 128 H (75-99) mg/dL Iron (65-175) ug/dL % Saturation (15.00-50.00) ALT 115 H (4-49) U/L C-Reactive Protein 20.2 H (<10.0) mg/L Albumin 3.3 L (3.5-5.0) g/dL Assessment and Plan Assessment: #1. Acute exacerbation of chronic obstructive pulmonary disease #2. Acute exacerbation of congestive heart failure with systolic dysfunction, echocardiogram showed severely impaired LV function with an EF of 20-25%, inferior hypokinesis, moderately enlarged right ventricle, moderate to severe mitral regurg, [id number] tricuspid regurg, and moderate pulmonary hypertension with right-sided pressures of 49.1 mmHg and IVC dilated with no significant inspiratory collapse with estimated right atrial pressure of greater than 15 mmHg #3. Elevated d-dimer, CTA showed findings suspicious for small pulmonary embolism involving the third order branch of the right pulmonary artery and the right lower lobe #4 Mediastinal lymphadenopathy and 7 mm left upper lobe pulmonary nodule. Computed tomography scan in 3 months recommended. #5 Generalized anasarca, cardiomegaly, moderate right and small left pleural effusions, presacral edema. Infrarenal abdominal aortic aneurysm measuring 6.3 x 4.8 cm, circumferential [id number] the lumen to 2.2 cm. 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 #6. Chronic and ongoing history of smoking #7. History of chronic obstructive pulmonary disease #8. Previous history of myocardial infarction #9. Elevated liver enzymes #10. Mild lactic acidosis, resolved with IV hydration #11. Troponin elevation, of 2.78, 2.76, and 3.26, cardiology following #12. Hypertension #13. Hyperlipidemia #14 Medical noncompliance #15. Open wound on the right lateral aspect of the knee with screw exposure Plan: The patient was seen and evaluated by Dr. Ori House for open wound of the lateral aspect of the right knee with screw exposure Culture pending Orthopedics and vascular consults noted Plan is for transfer to tertiary care center Cardiac catheterization today revealing significant coronary artery disease according to staff, report pending I, the cosigning physician, performed a history & physical examination of the patient. Lungs sounds with crackles in the posterior bases right greater than left Maintaining good O2 saturations in the 90s on room air. I discussed the assessment and plan of care with my nurse practitioner, Shanell Jc. I attest to the above note as dictated by her.
--- NOTE | 2019-08-28 14:07 | ECHOT ---
TRANSESOPHAGEAL ECHOCARDIOGRAM INDICATION: Evaluation of mitral valve. PROCEDURE: After explaining the procedure to the patient, its risks and the complications, his blood pressure, heart rate, O2 saturation was monitored. The throat was sprayed with Cetacaine. He received intravenous Versed. The probe was introduced in the esophagus without difficulty. Images were obtained. The probe was removed. There was no immediate complication. FINDINGS: Left atrial size is a severely dilated, right atrial size is dilated. Left ventricular size is dilated. There is severe impairment of ventricular systolic function. The lateral wall is moving normally. The inferior wall is hypokinetic. The distal anteroapical wall is akinetic. The estimated ejection fraction 30% to 35%. The right ventricle systolic function is depressed. The aortic valve revealed fibrocalcific change with aortic cusp with preserved opening, mild thickening of the mitral valve leaflets was noted. The tricuspid valve is normal. No pericardial effusion was noted. Descending thoracic aorta revealed mild atherosclerotic changes. Contrast bubble study revealed no shunting across the interatrial septum. No pericardial effusion was noted. Doppler pulse wave and color Doppler obtained, revealed severe eccentric mitral regurgitation with moderate tricuspid regurgitation and moderate pulmonary hypertension. Mild aortic regurgitation was noted. No shunting was noted by color Doppler study. CONCLUSION: 1. Biatrial enlargement. 2. Dilated left ventricle with severely impaired left ventricular systolic function with segmental wall motion abnormality. 3. Severe mitral regurgitation with moderate tricuspid regurgitation. 4. Aortic sclerosis with mild aortic regurgitation. 5. No shunting across the interatrial septum. 6. No pericardial effusion. 7. Mild atherosclerotic changes of the descending thoracic aorta. MMODL / IJN: [id number] /
[2019-08-28] MEDS: FUROSEMIDE 10 MG/ML 4 ML VIAL IV SCH ×3 (14:13→22:58)
--- NOTE | 2019-08-28 15:26 | P.PN ---
Subjective Progress Note Date: 08/28/19 Principal diagnosis: Shortness of breath Patient was seen and examined. No acute events overnight. Patient reports significant improvement in his breathing since admission. He denies any chest pain or palpitations. No nausea or vomiting. No fever or chills. Nursing reporting some confusion after his heart catheterization and ANA, though improving. Objective - Vital Signs Vital signs: Vital Signs Temp 97.7 F 08/28/19 08:00 Pulse 100 08/28/19 08:32 Resp 20 08/28/19 08:00 BP 116/66 08/28/19 08:00 Pulse Ox 99 08/28/19 08:00 Intake & Output 08/27/19 08/28/19 08/28/19 18:59 06:59 18:59 Intake Total 740 150 Output Total 300 1900 Balance 440 -1900 150 Weight 88.5 kg Intake: IV 150 Oral 740 Output: Urine 300 1900 Other: Voiding Method Urinal Urinal # Voids 0 1 2 - Exam General: [non toxic], [no distress], [appears at stated age] Derm: [warm], [dry] Head: [atraumatic], [normocephalic], [symmetric] Eyes: [EOMI], [no lid lag], [anicteric sclera] Mouth: [no lip lesion], [mucus membranes moist] Cardiovascular: [S1S2 reg], [holosystolic murmur], [positive DP pulse b ilateral], Lungs: [decreased breath sounds bilateral], [Rales bilaterally with crackles at the bases] , [no accessory muscle use] Abdominal: [soft], [ nontender to palpation], [no guarding], [no appreciable organomegaly] Ext: [no gross muscle atrophy], [2+ pitting lower extremity edema with weeping on the right lower extremity], [no contractures], [open sore over the right knee] Neuro: [no focal neuro deficits] Psych: [Alert], [oriented], [appropriate affect] - Labs CBC & Chem 7: 08/28/19 06:19 08/28/19 06:19 Labs: Abnormal Lab Results - Last 24 Hours (Table) 08/27/19 08/27/19 08/27/19 Range/Units 05:47 05:47 16:51 Hgb (13.0-17.5) gm/dL Hct (39.0-53.0) % MCHC (31.0-37.0) g/dL RDW (11.5-15.5) % Lymphocytes # (1.0-4.8) k/uL APTT (22.0-30.0) sec Sodium (137-145) mmol/L BUN (9-20) mg/dL Glucose (74-99) mg/dL POC Glucose (mg/dL) 135 H (75-99) mg/dL Iron 15 L (65-175) ug/dL % Saturation 4.16 L (15.00-50.00) ALT (4-49) U/L C-Reactive Protein (<10.0) mg/L Albumin (3.5-5.0) g/dL Albumin (PEP) 3.23 L (3.80-4.90) g/dL Dksud-6-Odmtramyj 0.43 H (0.10-0.40) g/dL 08/27/19 08/28/19 08/28/19 Range/Units 20:40 00:53 06:06 Hgb (13.0-17.5) gm/dL Hct (39.0-53.0) % MCHC (31.0-37.0) g/dL RDW (11.5-15.5) % Lymphocytes # (1.0-4.8) k/uL APTT 46.1 H (22.0-30.0) sec Sodium (137-145) mmol/L BUN (9-20) mg/dL Glucose (74-99) mg/dL POC Glucose (mg/dL) 183 H 121 H (75-99) mg/dL Iron (65-175) ug/dL % Saturation (15.00-50.00) ALT (4-49) U/L C-Reactive Protein (<10.0) mg/L Albumin (3.5-5.0) g/dL Albumin (PEP) (3.80-4.90) g/dL Qvepm-5-Druqjojhh (0.10-0.40) g/dL 08/28/19 08/28/19 08/28/19 Range/Units 06:19 06:19 13:09 Hgb 11.1 L (13.0-17.5) gm/dL Hct 37.4 L (39.0-53.0) % MCHC 29.7 L (31.0-37.0) g/dL RDW 16.1 H (11.5-15.5) % Lymphocytes # 0.4 L (1.0-4.8) k/uL APTT (22.0-30.0) sec Sodium 134 L (137-145) mmol/L BUN 37 H (9-20) mg/dL Glucose 114 H (74-99) mg/dL POC Glucose (mg/dL) 128 H (75-99) mg/dL Iron (65-175) ug/dL % Saturation (15.00-50.00) ALT 115 H (4-49) U/L C-Reactive Protein 20.2 H (<10.0) mg/L Albumin 3.3 L (3.5-5.0) g/dL Albumin (PEP) (3.80-4.90) g/dL Emoal-7-Tvyeflddr (0.10-0.40) g/dL Assessment and Plan Assessment: Pulmonary embolus Troponin elevation Acute CHF exacerbation Acute COPD exacerbation Infrarenal AAA aneurysm Right knee pain likely chronic osteomyelitis, possible infected hardware Lactic acidosis Transaminitis History of COPD CTA chest shows small PE involving the third order branches of the right pulmonary artery, COPD with severe cardiomegaly bilateral pleural effusions. Lower extremity duplex negative. Patient will be continued on heparin drip for his diagnosis of PE. Anemia and paraprotein labs ordered by hematology. Pulmonology and hematology has been consulted for further management. His troponin elevation of 2.78, 2.76, 3.26 with EKG showing sinus tachycardia could be related to demand ischemia or troponin leak from CHF versus non-ST elevation DE. Telemetry monitoring as ordered. He will be continued on heparin drip as above. He will be started on aspirin. Coreg has been started by cardiology. Cardiac catheterization performed, report pending but multivessel occlusion requiring cardiothoracic intervention. His CTA chest is suggested of congestive heart failure exacerbation. Echo cardiac shows EF 20-25% with borderline concentric LVH. Patient be continued on Lasix 40 mg IV 3 times a day. Strict intake and outtake will be be ordered. Daily weights will be performed. He has been started on beta teri as above. He will need WES inhibitor and Aldactone prior to discharge. Consider AICD placement depending on cardiology recommendations. CTA chest shows chronic signs of COPD. Patient will be started on Symbicort, DuoNeb scheduled and as needed for shortness of breath and wheezing. He will be started on Solu-Medrol. Pulmonology is following the patient. Infrarenal aneurysm greater than [address] abdomen and pelvis. His blood pressure is relatively under control. Vascular surgery has been co nsulted and recommends transfer to [facility] to be followed with orthopedic surgery. Appears to have deformity with previous history of chemo placement. Knee x-ray shows no acute abnormality. ESR and CRP are elevated. Case was discussed with orthopedic surgery who recommends transfer for ortho pedic trauma evaluation. We will attempt to stabilize the patient with regard to his CHF, COPD and possible non-ST elevation DE prior to exploring transfer to tertiary facility. Infectious disease has been consulted and patient has been started on cefazolin. Patient had elevated lactic acid of 3.9, 2.4, 1.7. This is likely related to dehydration. He was given 1 L bolus in the ED. There are no clear signs of infection at this time. His most recent lactic acid is within normal limits. Patient has elevated AST of [id number]-within normal limits, ALT of [phone]. This is of unknown significance. Lipid panel and hepatic panel is within normal limits. Liver ultrasound shows mild fatty liver. Likely venous congestion. Repeat CMP tomorrow morning. [Patient admitted for CHF exacerbation, continuing IV diuresis. Found to have elevated troponins and probable PE, continued on heparin drip, cardiac cath shows multivessel occlusion, cardiothoracic surgery consulted. Orthopedic surgery recommends transfer for Ortho trauma eval of right knee. Vascular surgery consulted for infrarenal AAA aneurysm, will follow after transfer. He is pending clinical improvement. We will attempt to transfer the patient after his workup for NSTEMI, and stabilization of his CHF and COPD. prognosis is guarded.]
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
--- NOTE | 2019-08-28 16:23 | CC ---
CARDIAC CATHETERIZATION REPORT Mr. Lujan is a 68-year-old male with known history of coronary artery disease, history of chronic tobacco use, who presented with symptoms of progressive dyspnea, peripheral edema and evidence of congestive heart failure. He has mild elevation of troponin and his echocardiogram showed a severe mitral regurgitation and severely impaired left ventricular systolic function. In view of that, recommendation made regarding cardiac catheterization. The procedures, risks, and complication were discussed with the patient who is in full understanding and agreement. 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 Using Xylocaine anesthesia and Seldinger technique, a 6-Barbadian sheath was introduced in the right radial artery. Subsequently, the intravenous catheter in the basilic vein was changed over wire to a 6-Barbadian sheath. Following that, right heart catheterization was performed using [place]-Ronaldo catheter. Multiple pressure and samples were obtained. Cardiac output by thermodilution was calculated. Following that, selective right and left coronary angiography performed using 5-Barbadian 3.5 bend, right and left Maria Elena catheter. Multiple views of the coronary artery including hemiaxial views were obtained. Following that, the right Maria Elena was used to cross the aortic valve and left ventricular end-diastolic pressure was calculated. Following that, catheter and sheath were removed. Hemostasis was obtained with deployment of TR band and compression of the right brachial area. There was no immediate complication. Patient is returned to his room in stable condition. Of note, the patient received a total of 5000 units of intravenous heparin as well as intra-arterial verapamil. FINDINGS: HEMODYNAMICS: Pulmonary artery systolic pressure of 55 with a diastolic of 36-40 and a mean of 30 mmHg. Pulmonary capillary wedge pressure A-wave of 20, V-wave of 45 with a mean of 25 mmHg. Right ventricular systolic pressure of 50 with an end-diastolic of 18- 20. Right atrium A-wave of 20, V-wave 20 with a mean of 18 mmHg. There was no gradient across the aortic valve. The left ventricular end-diastolic pressure was 28 mmHg. Right atrial saturation of 40%, pulmonary artery saturation of 49% and arterial saturation of 96%. Cardiac output by thermodilution was 3.2 L/minute. I will give you the saturation at the end. CORONARIES: LEFT MAIN: This is a large-sized vessel, trifurcating into left circumflex, left anterior descending artery and ramus intermedius. Left main coronary artery has no evidence of high-grade stenosis. LEFT ANTERIOR DESCENDING ARTERY: This is a large-sized vessel reaching toward the apex, giving rise to a large proximal diagonal branch. The diagonal branch has a 90% stenosis proximally. After the diagonal branch is subtotally occluded filling the mid segment, then there is another total occlusion before filling the apex. RAMUS INTERMEDIUS: This is a large-sized vessel, reaching to the apical lateral wall. The ramus intermedius has mild intimal disease proximally of 20% to 30% without any evidence of high-grade stenosis. LEFT CIRCUMFLEX: This vessel is totally occluded proximally with slow flow through ipsilateral collaterals to the obtuse marginal branch. RIGHT CORONARY ARTERY: This vessel is totally occluded proximally with no significant antegrade flow with minimal antegrade flow, also ipsilateral collaterals. There is also contralateral collateral to the right PDA and PLV. CONCLUSION: 1. Moderate pulmonary hypertension with elevated V-wave, under which pressure consistent with severe mitral regurgitation. 2. Severe triple-vessel coronary artery disease. I would proceed with transesophageal echocardiogram to further evaluate the mitral valve apparatus and the mitral regurgitation and further recommendation will need to be done in regard to any surgical intervention. The patient was noted to have as well an abdominal aortic aneurysm. Those findings and recommendations were discussed with the patient who is in full understanding and agreement. Duration of procedure is 25 minutes. CHAVEZ / BENTONN: [id number] /
[2019-08-28 17:15] LABS: Glucose,Whole Blood 197 mg/dL (75-99)
[2019-08-28] MEDS: CARVEDILOL 6.25 MG TAB PO SCH (17:21)
[2019-08-28] MEDS: NICOTINE 21MG/24HR PATCH TRANSDERM SCH (17:21)
[2019-08-28] MEDS ORDERED: FUROSEMIDE 10 MG/ML 2 ML VIAL IV ONE (17:56)
[2019-08-28] MEDS ORDERED: HEPARIN SODIUM,PORCINE 5,000 UNIT/ML 1 ML VIAL IV PRN (17:58)
[2019-08-28 20:38] LABS: Glucose,Whole Blood 232 mg/dL (75-99)
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
[2019-08-28] MEDS ORDERED: VANCOMYCIN IV PER PHARMACY 1 EACH MISC MISCELLANE PRN (23:55)
[2019-08-29] MEDS: VANCOMYCIN 1,500 MG in SODIUM CHLORIDE 0.9% 250 ML IVPB SCH ×2 (01:08→12:45)
[2019-08-29 06:10] LABS: Glucose,Whole Blood 162 mg/dL (75-99)
[2019-08-29] MEDS: CARVEDILOL 6.25 MG TAB PO SCH ×2 (06:51→17:29)
[2019-08-29] MEDS: INSULIN ASPART (NovoLOG) 100 UNIT/ML VIAL SQ SCH ×4 (06:51→22:30)
[2019-08-29] MEDS: SYMBICORT 160-4.5 MCG INHALER INHALATION SCH ×2 (07:24→21:59)
[2019-08-29] MEDS: IPRATROPIUM-ALBUTEROL 3 ML NEB INHALATION SCH ×4 (07:24→21:59)
[2019-08-29] MEDS: HEPARIN SOD,PORK IN 0.45% NACL 25,000 UNIT in 0.45% NACL 1 250ML.BAG IV SCH (08:06)
[2019-08-29] MEDS: methylPREDNISolone SOD SUCCI 40 MG/ML 1 ML VIAL IV SCH ×3 (09:25→22:30)
[2019-08-29] MEDS: FUROSEMIDE 10 MG/ML 4 ML VIAL IV SCH ×3 (09:25→22:30)
[2019-08-29] MEDS: ATORVASTATIN 40 MG TAB PO SCH (09:26)
[2019-08-29] MEDS: ASPIRIN 81 MG PO SCH (09:26)
[2019-08-29] MEDS: NICOTINE 21MG/24HR PATCH TRANSDERM SCH (09:26)
[2019-08-29] MEDS: SPIRONOLACTONE 25 MG TAB PO SCH (09:26)
[2019-08-29] MEDS: LISINOPRIL 2.5 MG TAB PO SCH ×2 (09:26→22:30)
[2019-08-29 09:52] LABS: Methylmalonic Acid 0.91 umol/L (<0.40)
[2019-08-29 09:53] LABS: Albumin 3.2 g/dL (3.5-5.0); Calcium 8.3 mg/dL (8.4-10.2); Potassium 4.1 mmol/L (3.5-5.1); Total Bilirubin 0.8 mg/dL (0.2-1.3); Total Protein 6.3 g/dL (6.3-8.2)
--- NOTE | 2019-08-29 10:49 | P.PN ---
Subjective Progress Note Date: 08/29/19 Principal diagnosis: Shortness of breath, lower extremity edema 68-year-old white male, with history of emphysema, chronic and ongoing history of smoking, prior history of myocardial infarction, who has not seen a physician in the long time. Patient presented to the emergency department on 08/25/2019 with complaints of increasing shortness of breath for the past month, and i ncreasing swelling in his lower extremities, his edema continued to worsen, he developed florid blisters on his right lower extremity which eventually erupted and the skin is now open and weeping on his right lower leg. Denied any fever or chills, denied any chest pain, no cough, no wheezing, no palpitations. No nausea or vomiting, no diarrhea. Chest x-ray showed small right pleural effusion and trace left pleural effusion with bibasilar airspace disease, minimal central pulmonary vascular congestion and enlarged cardiac mediastinal silhouette. His lab work showed white blood cell count of 9.3, hemoglobin of 12.7, INR 1.3, d-dimer was elevated at 2.84, CTA chest showed questionable small pulmonary embolism involving the third order of the right pulmonary artery and the right lower lobe, background of COPD with severe cardiomegaly and bilateral pleural effusions. And nonspecific mediastinal lymphadenopathy. EKG showed sinus tachycardia with a rate of 116, with evidence of inferior and anterior infarct of undetermined age. Plasma lactic acid was 2.6 on admission, renal profile showed BUN of 26 and creatinine of 1.2, AST of 126, ALT of 114, alk phos of 116, troponins were 2.78, 2.76, and 3.26, proBNP was 15,004 100, COVID 19 was negative. Patient was started on IV diuretics, IV heparin for elevated troponins, cardiology consultation has been obtained, he was started on kathryn athing treatments. Echocardiogram showed severely impaired LV function with an EF of 20-25%, inferior hypokinesis, moderate to severe mitral regurgitation, [id number]-rd-[id number] tricuspid regurgitation, moderately severe pulmonary hypertension with right-sided pressures of 49.1 mmHg. The patient is seen today 08/27/2019 in follow-up on the selective care unit. He is currently sitting up in a chair at the bedside. Awake and alert in no acute distress. He is maintaining O2 saturation in the mid 90s on room air. He's been afebrile. Hemodynamically stable. White count 6.0. Hemoglobin 11.5. INR 1.3. Sodium 135. Potassium 4.1. Creatinine 1.19. AST 72. ALT 147. He remains on Symbicort, DuoNeb inhalations, IV Solu-Medrol. He is on IV diuretics. Heparin drip continues. Ultrasound of the liver reveals cholelithiasis. And mild fatty infiltration of liver. Right pleural effusion. Computed tomography scan of the abdomen revealed generalized anasarca, cardiomegaly, moderate right and small left pleural effusions, presacral edema. There is infrarenal abdominal aortic aneurysm measuring 6.3 x 4.8 cm. Circumferential plaque narrows the limited 2.2 cm. Aneurysms/ectasia of the ri ght and left common iliac arteries and 2.4 and 1.7 cm respectively. There is noted mediastinal lymphadenopathy and 7 mm left upper lobe pulmonary nodule seen on recent 08/25/2019 CT. The patient is seen today 08/28/2019 in follow-up on the selective care unit. He is currently resting flat in bed. Drowsy from recent cardiac catheterization. He is maintaining O2 saturations in the 90s on room air. He's afebrile. Hemodynamically stable. White count 8.7. Hemoglobin 11.1. Sodium 134. Potassium 4.6. Creatinine 1.19. Catheterization results pending but according to staff there is significant disease. The patient was seen by orthopedics yesterday regarding the open wound on the lateral aspect of the right knee where there is granulation tissue surrounding it and the screw is visible but no plans for intervention. They do suspect osteomyelitis of the right distal femur and recommended transfer to tertiary care facility for workup by orthopedic trauma and vascular. Vascular here recommended transfer as well once medically stable. He remains on bronchodilators, IV diuretics. We will add Kefzol. The patient is seen today 08/29/2019 in follow-up on the selective care unit. Christopher chairez is currently sitting up in bed. Awake and alert in no acute distress. He is maintaining O2 saturations in the 90s on room air. He denies any worsening shortness of breath, cough or congestion. He denies any chest pain or palpitations. Right knee wound culture is presumptive staph aureus. Sodium 136. Potassium 4.1. Creatinine 1.12. Infectious disease is on the case He's been initiated on vancomycin and ceftazidime. He remains on a heparin drip. Continued on bronchodilators and IV Solu-Medrol. Habitrol patch in place. Objective - Vital Signs Vital signs: Vital Signs Temp 97.6 F 08/28/19 17:58 Pulse 100 08/29/19 07:36 Resp 20 08/29/19 04:00 BP 114/73 08/29/19 04:00 Pulse Ox 94 L 08/29/19 04:00 Intake & Output 08/28/19 08/29/19 08/29/19 18:59 06:59 18:59 Intake Total 270 730 221.693 Output Total 300 1500 Balance -30 -770 221.693 Weight 91.5 kg Intake: IV 150 Intake, IV Titration 250 221.693 Amount Heparin Sod,Pork in 0.45% 221.693 NaCl 25,000 unit In 0.45 % NaCl 1 250ml.bag @ 18 UNITS/KG/HR 15.93 mls/hr IV .[id number] [facility] Rx#: [id number] Sodium Chloride 0.9% 1, 200 000 ml @ 75 mls/hr IV . [id number] [facility] Rx#:[id number] ceFAZolin 1,000 mg In 50 Sodium Chloride 0.9% 50 ml @ 100 mls/hr IVPB Q8HR [facility] Rx#:[id number] Oral 120 480 Output: Urine 300 1500 Other: Voiding Method Urinal Urinal # Voids 2 2 - Exam GENERAL EXAM: Alert, pleasant, 68-year-old male patient, resting in bed, on room air, comfortable in no apparent distress. HEAD: Normocephalic/atraumatic. EYES: Normal reaction of pupils, equal size. Conjunctiva pink, sclera white. NOSE: Clear with pink turbinates. THROAT: No erythema or exudates. NECK: No masses, no JVD, no thyroid enlargement, no adenopathy. CHEST: No chest wall deformity. Symmetrical expansion. LUNGS: Equal air entry with bilateral posterior crackles right greater than left CVS: Regular rate and rhythm, normal S1 and S2, no gallops, no murmurs, no rubs ABDOMEN: Soft, nontender. No hepatosplenomegaly, normal bowel sounds, no guarding or rigidity. EXTREMITIES: No clubbing, 2+ lower extremity edema, left greater than right, with weeping open blisters on the right lower extremity with open wound on the lateral aspect of the right knee, no cyanosis, 2+ pulses and upper and lower extremities. MUSCULOSKELETAL: Muscle strength and tone normal. SPINE: No scoliosis or deformity SKIN: Weeping open blisters on right lower extremity, open wound with exposed screw on the lateral right knee CENTRAL NERVOUS SYSTEM: No focal deficits, tone is normal in all 4 extremities. PSYCHIATRIC: Alert and oriented -3. Appropriate affect. Intact judgment and insight. - Labs CBC & Chem 7: 08/28/19 06:19 08/29/19 08:53 Labs: Abnormal Lab Results - Last 24 Hours (Table) 08/27/19 08/27/19 08/28/19 Range/Units 05:47 05:47 13:09 APTT (22.0-30.0) sec Sodium (137-145) mmol/L BUN (9-20) mg/dL Glucose (74-99) mg/dL POC Glucose (mg/dL) 128 H (75-99) mg/dL Calcium (8.4-10.2) mg/dL ALT (4-49) U/L Albumin (3.5-5.0) g/dL Albumin (PEP) 3.23 L (3.80-4.90) g/dL Ljmkl-7-Ssmedopdd 0.43 H (0.10-0.40) g/dL Methylmalonic Acid 0.91 H (<0.40) umol/L 08/28/19 08/28/19 08/29/19 Range/Units 17:14 20:36 00:22 APTT 62.8 H (22.0-30.0) sec Sodium (137-145) mmol/L BUN (9-20) mg/dL Glucose (74-99) mg/dL POC Glucose (mg/dL) 197 H 232 H (75-99) mg/dL Calcium (8.4-10.2) mg/dL ALT (4-49) U/L Albumin (3.5-5.0) g/dL Albumin (PEP) (3.80-4.90) g/dL Gotiq-8-Snahatieg (0.10-0.40) g/dL Methylmalonic Acid (<0.40) umol/L 08/29/19 08/29/19 08/29/19 Range/Units 06:09 08:53 08:53 APTT 102.7 H* (22.0-30.0) sec Sodium 136 L (137-145) mmol/L BUN 38 H (9-20) mg/dL Glucose 149 H (74-99) mg/dL POC Glucose (mg/dL) 162 H (75-99) mg/dL Calcium 8.3 L (8.4-10.2) mg/dL ALT 80 H (4-49) U/L Albumin 3.2 L (3.5-5.0) g/dL Albumin (PEP) (3.80-4.90) g/dL Neizu-2-Womzucnlf (0.10-0.40) g/dL Methylmalonic Acid (<0.40) umol/L Microbiology - Last 24 Hours (Table) 08/28/19 13:15 Gram Stain - Preliminary Knee - Right Wound Culture - Preliminary Presumptive Staph aureus Assessment and Plan Assessment: #1. Acute exacerbation of chronic obstructive pulmonary disease #2. Acute exacerbation of congestive heart failure with systolic dysfunction, echocardiogram showed severely impaired LV function with an EF of 20-25%, inferior hypokinesis, moderately enlarged right ventricle, moderate to severe mitral regurg, hjpk-fl-cvuqvcdv tricuspid regurg, and moderate pulmonary hypertension with right-sided pressures of 49.1 mmHg and IVC dilated with no significant inspiratory collapse with estimated right atrial pressure of greater than 15 mmHg #3. Elevated d-dimer, CTA showed findings suspicious for small pulmonary embolism involving the third order branch of the right pulmonary artery and the right lower lobe #4. Mediastinal lymphadenopathy and 7 mm left upper lobe pulmonary nodule. Comp uted tomography scan in 3 months recommended. #5. Generalized anasarca, cardiomegaly, moderate right and small left pleural effusions, presacral edema. Infrarenal abdominal aortic aneurysm measuring 6.3 x 4.8 cm, circumferential sjhkeuqb-wuky-qsw the lumen to 2.2 cm. 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 #6. Chronic and ongoing history of smoking #7. History of chronic obstructive pulmonary disease #8. Severe triple-vessel disease on cardiac catheterization from 08/28/2019 #9. Severe mitral regurgitation with moderate tricuspid regurgitation on ANA 08/28/2019 #10. Mild lactic acidosis, resolved with IV hydration #11. Hypertension #12. Hyperlipidemia #13. Medical noncompliance #14. Open wound on the right lateral aspect of the knee with screw exposure Plan: The patient was seen and evaluated by Dr. Ori Johnson from the pulmonary standpoint Right knee wound culture presumptive staph aureus ID is on the case currently on vancomycin and ceftazidime Plan is for probable transfer to tertiary care center for ortho/vascular I, the cosigning physician, performed a history & physical examination of the patient. Lungs sounds with crackles in the posterior bases right greater than left. Maintaining good O2 saturations in the 90s on room air. I discussed the assessment and plan of care with my nurse practitioner, Shanell Jc. I attest to the above note as dictated by her.
--- NOTE | 2019-08-29 11:54 | PN ---
PROGRESS NOTE Mr. Lujan is a 68-year-old male who presented with symptoms of congestive heart failure and was found to have severe cardiomyopathy, underwent a cardiac catheterization, was found to have severe triple-vessel coronary disease and his ANA revealed severely impaired left ventricular systolic function. He is feeling better overall, but continued to be dyspneic. He denies any symptoms of chest pain. He denies any dizziness or palpitation. He was evaluated yesterday by Dr. Singh for surgical repair. The patient had a prior surgery on the knee with evidence of hardware exposure requiring the intervention as well as history of abdominal aortic aneurysm. He continues to be at this time on aspirin once a day, Lipitor 40 mg daily, Coreg 6.5 mg twice a day, Lasix 40 mg IV q.8 hours. lisinopril 2.5 mg daily, spironolactone 25 mg daily. PHYSICAL EXAMINATION: Blood pressure 105/60 with a heart rate in the 90s. Lungs with a few crackles at the bases. HEART: Regular rate and rhythm, S1, S2. No S3 with a holosystolic murmur at the apex radiating to the axilla. ABDOMEN: Soft, nontender. Positive bowel sounds. No organomegaly. Right radial pulse intact. EXTREMITIES: +2 edema bilaterally with healing ulcer on the right side and dressing on the right knee noted. LAB DATA: BUN and creatinine 38, 1.1. Potassium 4.1. His I and Os are 800 mL negative for yesterday. IMPRESSION: 1. Severe triple-vessel coronary artery disease with severe ischemic cardiomyopathy. 2. Severe mitral regurgitation. 3. Abdominal aortic aneurysm. 4. Exposure of hardware in the right knee. 5. History of chronic tobacco use. 6. Hyperlipidemia. 7. Hypertension. 8. He had a prior history of smoking. RECOMMENDATIONS: From the cardiac standpoint, I will continue IV diuresis. I will adjust the dose of his WES inhibitor. I will follow his renal function. Once the patient stabilizes, he will benefit from a viability study for possible surgical intervention. Unfortunately, he has abdominal aortic aneurysm and his knee cannot be intervened on until his cardiac status is stabilized. MMODL / IJN: [id number] /
[2019-08-29 12:03] LABS: Glucose,Whole Blood 181 mg/dL (75-99)
--- NOTE | 2019-08-29 14:08 | P.PN ---
Subjective Progress Note Date: 08/29/19 Principal diagnosis: Unprovoked THrombus Iron deficiency identified, GI consult placed to further evaluate blood loss versus underlying malignancy Objective - Vital Signs Vital signs: Vital Signs Temp 97.7 F 08/28/19 08:00 Pulse 100 08/28/19 08:32 Resp 20 08/28/19 08:00 BP 116/66 08/28/19 08:00 Pulse Ox 99 08/28/19 08:00 Intake & Output 08/27/19 08/28/19 08/28/19 18:59 06:59 18:59 Intake Total 740 150 Output Total 300 1900 Balance 440 -1900 150 Weight 88.5 kg Intake: IV 150 Oral 740 Output: Urine 300 1900 Other: Voiding Method Urinal Urinal # Voids 0 1 2 - Exam - Constitutional General appearance: Present: average body habitus, cooperative, no acute distress - EENT Eyes: Present: anicteric sclerae, EOMI ENT: Present: hearing grossly normal - Respiratory Details: resp even and unlabored Respiratory: bilateral: diminished - Cardiovascular Rhythm: regular Heart sounds: normal: S1, S2 Abnormal Heart Sounds: Present: systolic murmur - Gastrointestinal General gastrointestinal: Present: normal bowel sounds, soft - Musculoskeletal Musculoskeletal: Present: strength equal bilaterally - Psychiatric Psychiatric: Present: A&O x's 3, appropriate affect, intact judgment & insight - Labs CBC & Chem 7: 08/28/19 06:19 08/29/19 08:53 Labs: Abnormal Lab Results - Last 24 Hours (Table) 08/27/19 08/27/19 08/27/19 Range/Units 05:47 05:47 16:51 Hgb (13.0-17.5) gm/dL Hct (39.0-53.0) % MCHC (31.0-37.0) g/dL RDW (11.5-15.5) % Lymphocytes # (1.0-4.8) k/uL APTT (22.0-30.0) sec Sodium (137-145) mmol/L BUN (9-20) mg/dL Glucose (74-99) mg/dL POC Glucose (mg/dL) 135 H (75-99) mg/dL Iron 15 L (65-175) ug/dL % Saturation 4.16 L (15.00-50.00) ALT (4-49) U/L C-Reactive Protein (<10.0) mg/L Albumin (3.5-5.0) g/dL Albumin (PEP) 3.23 L (3.80-4.90) g/dL Kugyn-3-Hiwezzzdv 0.43 H (0.10-0.40) g/dL 08/27/19 08/28/19 08/28/19 Range/Units 20:40 00:53 06:06 Hgb (13.0-17.5) gm/dL Hct (39.0-53.0) % MCHC (31.0-37.0) g/dL RDW (11.5-15.5) % Lymphocytes # (1.0-4.8) k/uL APTT 46.1 H (22.0-30.0) sec Sodium (137-145) mmol/L BUN (9-20) mg/dL Glucose (74-99) mg/dL POC Glucose (mg/dL) 183 H 121 H (75-99) mg/dL Iron (65-175) ug/dL % Saturation (15.00-50.00) ALT (4-49) U/L C-Reactive Protein (<10.0) mg/L Albumin (3.5-5.0) g/dL Albumin (PEP) (3.80-4.90) g/dL Dicvm-4-Bodkiayuh (0.10-0.40) g/dL 08/28/19 08/28/19 08/28/19 Range/Units 06:19 06:19 13:09 Hgb 11.1 L (13.0-17.5) gm/dL Hct 37.4 L (39.0-53.0) % MCHC 29.7 L (31.0-37.0) g/dL RDW 16.1 H (11.5-15.5) % Lymphocytes # 0.4 L (1.0-4.8) k/uL APTT (22.0-30.0) sec Sodium 134 L (137-145) mmol/L BUN 37 H (9-20) mg/dL Glucose 114 H (74-99) mg/dL POC Glucose (mg/dL) 128 H (75-99) mg/dL Iron (65-175) ug/dL % Saturation (15.00-50.00) ALT 115 H (4-49) U/L C-Reactive Protein 20.2 H (<10.0) mg/L Albumin 3.3 L (3.5-5.0) g/dL Albumin (PEP) (3.80-4.90) g/dL Slian-7-Dbcvftxqp (0.10-0.40) g/dL Assessment and Plan Plan: - Imaging and Cardiology CT scan - abdomen: report reviewed CT scan - pelvis: report reviewed US - abdomen: report reviewed Assessment and Plan: Pulmonary embolism - Unprovoked. 1 year anticoagulation pending no underlying malignancy or genetic risk factor found. - Hypercoaguable work up as outpatient, patient can be seen as outpatient 4-5 weeks - PSA 3.1 Anemia: Iron Deficiency Component: - Will consult GI Evaluation EGD and Colonoscopy to evaluate for etiology Iron deficiency and/or malignancy - Patient has never had Colonoscopy CTAP reviewed with pt. Small rt pleural effusion, some slightly enlarged medistinal LN, soft tissue abnormality surrounding AAA, no other adenopathy or masses. Recommend Vascular evaluation. US liver-fatty infiltrate. Plan: - GI Evaluation with Iron Deficiency anemia, soft tissue abnormality surrounding AAA and unprovoked PE, will need to evaluate further for Malignancy Physician Attest: I have completed the full history and physical and agree with above, dictated as a scribe
[2019-08-29 14:50] LABS: Basophils % (A) 0 %; Eosinophils % (A) 0 %; HCT 37.6 % (39.0-53.0); HGB 11.6 gm/dL (13.0-17.5); Hypochromasia Marked; Lymphocytes # (A) 0.3 k/uL (1.0-4.8); Lymphocytes % (A) 3 %; MCHC 30.7 g/dL (31.0-37.0); MCV 87.7 fL (80.0-100.0); Mean Platelet Volume 8.1; Monocytes # (A) 0.5 k/uL (0-1.0); Monocytes % (A) 5 %; Neutrophils % (A) 91 %; Platelet Count 260 k/uL (150-450); RBC 4.29 m/uL (4.30-5.90); RDW 15.4 % (11.5-15.5)
[2019-08-29 14:59] LABS: Reticulocyte % 1.9 % (0.5-2.0)
--- NOTE | 2019-08-29 17:06 | P.PN ---
Subjective Progress Note Date: 08/29/19 Principal diagnosis: Shortness of breath Patient was seen and examined. No acute events overnight. Patient reports significant improvement in his breathing since admission. He denies any chest pain or palpitations. No nausea or vomiting. No fever or chills. His mentation is baseline. Right knee wound culture growing presumptive staph aureus. Objective - Vital Signs Vital signs: Vital Signs Temp 97.6 F 08/29/19 12:00 Pulse 84 08/29/19 12:00 Resp 18 08/29/19 12:00 BP 101/60 08/29/19 12:00 Pulse Ox 94 L 08/29/19 12:00 Intake & Output 08/28/19 08/29/19 08/29/19 18:59 06:59 18:59 Intake Total 270 730 751.607 Output Total 300 1500 1100 Balance -30 -770 -348.393 Weight 91.5 kg Intake: IV 150 Intake, IV Titration 250 271.607 Amount Heparin Sod,Pork in 0.45% 271.607 NaCl 25,000 unit In 0.45 % NaCl 1 250ml.bag @ 18 UNITS/KG/HR 15.93 mls/hr IV .[id number] [facility] Rx#: [id number] Sodium Chloride 0.9% 1, 200 000 ml @ 75 mls/hr IV . [id number] [facility] Rx#:[id number] ceFAZolin 1,000 mg In 50 Sodium Chloride 0.9% 50 ml @ 100 mls/hr IVPB Q8HR [facility] Rx#:[id number] Oral 120 480 480 Output: Urine 300 1500 1100 Other: Voiding Method Urinal Urinal Urinal # Voids 2 2 - Exam General: [non toxic], [no distress], [appears at stated age] Derm: [warm], [dry] Head: [atraumatic], [normocephalic], [symmetric] Eyes: [EOMI], [no lid lag], [anicteric sclera] Mouth: [no lip lesion], [mucus membranes moist] Cardiovascular: [S1S2 reg], [holosystolic murmur], [positive DP pulse bilateral ], Lungs: [decreased breath sounds bilateral], [Rales bilaterally with crackles at the bases, improved] , [no accessory muscle use] Abdominal: [soft], [ nontender to palpation], [no guarding], [no appreciable organomegaly] Ext: [no gross muscle atrophy], [2+ pitting lower extremity edema with weeping on the right lower extremity, improved], [no contractures], [open sore over the right knee] Neuro: [no focal neuro deficits] Psych: [Alert], [oriented], [appropriate affect] - Labs CBC & Chem 7: 08/29/19 14:13 08/29/19 08:53 Labs: Abnormal Lab Results - Last 24 Hours (Table) 08/27/19 08/28/19 08/28/19 Range/Units 05:47 17:14 20:36 RBC (4.30-5.90) m/uL Hgb (13.0-17.5) gm/dL Hct (39.0-53.0) % MCHC (31.0-37.0) g/dL Neutrophils # (1.3-7.7) k/uL Lymphocytes # (1.0-4.8) k/uL APTT (22.0-30.0) sec Sodium (137-145) mmol/L BUN (9-20) mg/dL Glucose (74-99) mg/dL POC Glucose (mg/dL) 197 H 232 H (75-99) mg/dL Calcium (8.4-10.2) mg/dL ALT (4-49) U/L Lactate Dehydrogenase (313-618) U/L Albumin (3.5-5.0) g/dL Methylmalonic Acid 0.91 H (<0.40) umol/L 08/29/19 08/29/19 08/29/19 Range/Units 00:22 06:09 08:53 RBC (4.30-5.90) m/uL Hgb (13.0-17.5) gm/dL Hct (39.0-53.0) % MCHC (31.0-37.0) g/dL Neutrophils # (1.3-7.7) k/uL Lymphocytes # (1.0-4.8) k/uL APTT 62.8 H (22.0-30.0) sec Sodium 136 L (137-145) mmol/L BUN 38 H (9-20) mg/dL Glucose 149 H (74-99) mg/dL POC Glucose (mg/dL) 162 H (75-99) mg/dL Calcium 8.3 L (8.4-10.2) mg/dL ALT 80 H (4-49) U/L Lactate Dehydrogenase (313-618) U/L Albumin 3.2 L (3.5-5.0) g/dL Methylmalonic Acid (<0.40) umol/L 08/29/19 08/29/19 08/29/19 Range/Units 08:53 12:02 14:13 RBC (4.30-5.90) m/uL Hgb (13.0-17.5) gm/dL Hct (39.0-53.0) % MCHC (31.0-37.0) g/dL Neutrophils # (1.3-7.7) k/uL Lymphocytes # (1.0-4.8) k/uL APTT 102.7 H* (22.0-30.0) sec Sodium (137-145) mmol/L BUN (9-20) mg/dL Glucose (74-99) mg/dL POC Glucose (mg/dL) 181 H (75-99) mg/dL Calcium (8.4-10.2) mg/dL ALT (4-49) U/L Lactate Dehydrogenase 665 H (313-618) U/L Albumin (3.5-5.0) g/dL Methylmalonic Acid (<0.40) umol/L 08/29/19 Range/Units 14:13 RBC 4.29 L (4.30-5.90) m/uL Hgb 11.6 L (13.0-17.5) gm/dL Hct 37.6 L (39.0-53.0) % MCHC 30.7 L (31.0-37.0) g/dL Neutrophils # 9.0 H (1.3-7.7) k/uL Lymphocytes # 0.3 L (1.0-4.8) k/uL APTT (22.0-30.0) sec Sodium (137-145) mmol/L BUN (9-20) mg/dL Glucose (74-99) mg/dL POC Glucose (mg/dL) (75-99) mg/dL Calcium (8.4-10.2) mg/dL ALT (4-49) U/L Lactate Dehydrogenase (313-618) U/L Albumin (3.5-5.0) g/dL Methylmalonic Acid (<0.40) umol/L Microbiology - Last 24 Hours (Table) 08/28/19 13:15 Gram Stain - Preliminary Knee - Right Wound Culture - Preliminary Presumptive Staph aureus Assessment and Plan Assessment: Pulmonary embolus Troponin elevation Acute CHF exacerbation Acute COPD exacerbation Infrarenal AAA aneurysm Right knee pain likely chronic osteomyelitis, possible infected hardware Lactic acidosis Transaminitis CTA chest shows small PE involving the third order branches of the right pulmonary artery, COPD with severe cardiomegaly bilateral pleural effusions. Lower extremity duplex negative. Patient will be continued on heparin drip for his diagnosis of PE. Anemia and paraprotein labs ordered by hematology. Discussed with Dr. Montiel yesterday, recommends continuation of heparin drip rather than any form of oral anticoagula tion given iron deficiency and need for GI workup. Pulmonology, GI and hematology has been following the patient. His troponin elevation of 2.78, 2.76, 3.26 with EKG showing sinus tachycardia could be related to demand ischemia or troponin leak from CHF versus non-ST elevation NE. Telemetry monitoring as ordered. He will be continued on heparin drip as above. He will be started on aspirin. Coreg has been started by cardiology. Cardiac catheterization performed, report pending but multivessel occlusion requiring cardiothoracic intervention. Discussed with Katherine KIRK from cardiothoracic surgery, states that patient would need removal of infected hardware along with cardiac MRI for cardiac viability for any sort of cardiothoracic intervention. Discussed with Dr. Saldana, recommends transfer to tertiary center for multidisciplinary approach of the patient. His CTA chest is suggested of congestive heart failure exacerbation. Echo cardiac shows EF 20-25% with borderline concentric LVH. Patient be continued on Lasix 40 mg IV 3 times a day. Strict intake and outtake will be be ordered. Daily weights will be performed. He has been started on beta teri as above. Lisinopril and Aldactone started by cardiology. Consider AICD placement depending on cardiology recommendations. CTA chest shows chronic signs of COPD. Patient will be started on Symbicort, DuoNeb scheduled and as needed for shortness of breath and wheezing. He will be started on Solu-Medrol. Pulmonology is following the patient. Infrarenal aneurysm greater than [address] abdomen and pelvis. His blood pressure is relatively under control. Vascular surgery has been consulted and recommends transfer to [facility] to be followed with orthopedic surgery. Appears to have deformity with previous history of chemo placement. Knee x-ray shows no acute abnormality. ESR and CRP are elevated. Case was discussed with orthopedic surgery who recommends transfer for orthopedic trauma evaluation. We will attempt to stabilize the patient with regard to his CHF, COPD and possible non-ST elevation NE prior to exploring transfer to tertiary facility. Infectious disease has been consulted and patient has been switched to vancomycin and ceftazidime given wound culture results. Patient had elevated lactic acid of 3.9, 2.4, 1.7. This is likely related to dehydration. He was given 1 L bolus in the ED. There are no clear signs of infection at this time. His most recent lactic acid is within normal limits. Patient has elevated AST of 819-197-57-within normal limits, ALT of [id number]. This is of unknown significance. Lipid panel and hepatic panel is within normal limits. Liver ultrasound shows mild fatty liver. Likely venous congestion. [We will continue IV diuresis as per discussion with Dr. Saldana. We will optimize his cardiac and respiratory medications. He will likely need a multidisciplinary approach at a tertiary center for infected hardware removal, CABG along with valve replacement, repair of aortic aneurysm. Prognosis is guarded at this time. I will attempt to call [facility] for possible transfer.]
[2019-08-29 17:07] LABS: Glucose,Whole Blood 188 mg/dL (75-99)
--- NOTE | 2019-08-29 17:33 | CONS ---
CONSULTATION DATE OF DICTATION: August 29, 2019 REQUESTING PHYSICIAN: Dr. Montiel. REASON FOR CONSULTATION: Iron deficiency anemia, possible EGD and colonoscopy. HISTORY OF PRESENT ILLNESS: The patient is a 68-year-old pleasant white male with multiple medical problems who was hospitalized 3 or 4 days ago because of shortness of breath, lower extremity swelling. CT of the chest shows evidence of small pulmonary embolism in the right lower lobe. He was started on IV heparin. His further workup showed mild anemia and iron indices consistent with iron deficiency anemia. We are consulted for possible EGD/colonoscopy to rule out malignancy in view of recently diagnosed pulmonary embolism. The patient was noted to have mild troponin elevation. He underwent cardiac catheterization that showed evidence of triple-vessel disease as well as aortic valve regurgitation and 6 cm abdominal aortic aneurysm. Cardiothoracic surgery was consulted who plans on surgical intervention once septic arthritis is resolved. The patient has a right knee septic arthritis. Dr. Taveras following the patient closely. He denies any abdominal pain. No nausea, vomiting. No rectal bleeding or melena. PAST MEDICAL HISTORY: Coronary artery disease, atrial fibrillation, recently diagnosed pulmonary embolism on IV heparin, history of CVA in the past, hypertension, hyperlipidemia. PAST SURGICAL HISTORY: Right hip replacement, right knee surgery. FAMILY HISTORY: Mother has coronary artery disease. Father unremarkable. MEDICATIONS: At home include naproxen. ALLERGIES: None. SOCIAL HISTORY: Active smoker. No alcohol use. FAMILY HISTORY: As mentioned above. REVIEW OF SYSTEMS: CARDIOPULMONARY: Shortness of breath has improved. No chest pain. NEUROLOGY unremarkable. PSYCHIATRIC unremarkable. ENT/VISION: Unremarkable. CONSTITUTIONAL: No recent weight loss. No fever, chills, night sweats. MUSCULOSKELETAL: Right knee pain and right knee chemo that appears to be protruding from previous surgery done in 1985. HEMATOLOGY as mentioned above. ONCOLOGY unremarkable. PHYSICAL EXAMINATION: He appears comfortable. No apparent distress. Vital signs stable. Blood pressure 112/86, pulse rate 85 per minute. Temperature was 97.6. HEENT examination unremarkable. Conjunctivae pink. Sclerae anicteric. Oral cavity no lesions. NECK no JVD. No lymph node enlargement. CHEST was clear to auscultation. HEART: Regular rate and rhythm. ABDOMEN: Soft, bowel sounds are positive. No organomegaly. EXTREMITIES no pedal edema. Multiple blisters noted in the right lower leg and protrusion of the chemo from previous surgery in the right lower extremity just below the knee joint. NEUROLOGIC: Alert and oriented x3. No focal deficits. LAB: From today, WBC 10, hemoglobin 11.6, platelets normal. Basic metabolic panel is within normal limits. Rest of the labs are within normal limits. Iron studies are consistent with iron deficiency anemia. IMPRESSION: 1. Mild iron deficiency anemia with no gastrointestinal symptoms most likely related to occult gastrointestinal blood loss. Never had EGD, colonoscopy in the past. Patient has been taking naproxen daily for right knee pain for the last few months. Rule out peptic ulcer disease. 2. Newly diagnosed pulmonary embolism on IV heparin. Dr. Montiel following the patient closely. 3. Coronary artery disease with recent cardiac catheterization showed triple-vessel disease. Surgery following the patient for possible CABG in the near future. 4. Aortic regurgitation. 5. Abdominal aortic aneurysm measuring 6.5 cm in diameter. Vascular surgery following the patient. 6. Right knee septic arthritis, on antibiotics. RECOMMENDATIONS: 1. Continue with antibiotics. 2. Continue symptomatic supportive care. 3. I discussed with the patient regarding proceeding with EGD/colonoscopy as a part of evaluation of iron deficiency anemia and rule out underlying GI malignancy. We will consider proceeding with this on Saturday. Continue with IV heparin drip for now. 4. We will follow with you closely. Thank you for this consultation. MMODL / IJN: [id number] /
[2019-08-29 20:09] LABS: Glucose,Whole Blood 211 mg/dL (75-99)
--- NOTE | 2019-08-29 22:45 | PN ---
PROGRESS NOTE DATE OF SERVICE: 08/29/2019 REASON FOR FOLLOWUP: Right knee infection. INTERVAL HISTORY: The patient is currently afebrile, has been breathing comfortably. Denies having any chest pain or cough. No nausea, no vomiting. No abdominal pain or any worsening pain to the right knee or leg area. PHYSICAL EXAMINATION: Blood pressure is 117/69, pulse of 92, temperature is 97.6, he is 98% on room air. General description is an elderly male lying in bed in no distress. Respiratory system: Unlabored breathing, clear to auscultation anteriorly. Heart S1, S2. Regular rate and rhythm. Abdomen soft, no tenderness. Right knee lateral wound with hardware exposed, minimal drainage. LABS: Hemoglobin is 11.1, white count 10.0. The local culture presumptive Staph aureus. DIAGNOSTIC IMPRESSION AND PLAN: Patient with right knee infection with infected hardware, hardware that is exposed. Will likely need removal of the hardware in order to completely clear this infection. Patient is on vancomycin, to continue. Will wait for the culture to finalize and adjust antibiotic further if needed. MMODL / IJN: [id number] /
[2019-08-30] MEDS: VANCOMYCIN 1,500 MG in SODIUM CHLORIDE 0.9% 250 ML IVPB SCH ×2 (00:23→14:17)
[2019-08-30 06:15] LABS: Glucose,Whole Blood 143 mg/dL (75-99)
[2019-08-30] MEDS: INSULIN ASPART (NovoLOG) 100 UNIT/ML VIAL SQ SCH ×4 (06:33→20:35)
[2019-08-30] MEDS: CARVEDILOL 6.25 MG TAB PO SCH ×2 (06:33→17:38)
[2019-08-30 06:55] LABS: Anisocytosis Slight; Basophils % (A) 0 %; Eosinophils % (A) 0 %; HCT 37.4 % (39.0-53.0); HGB 11.2 gm/dL (13.0-17.5); Hypochromasia Marked; Lymphocytes # (A) 0.3 k/uL (1.0-4.8); Lymphocytes % (A) 3 %; MCV 86.6 fL (80.0-100.0); Mean Platelet Volume 7.8; Monocytes # (A) 0.8 k/uL (0-1.0); Monocytes % (A) 8 %; Neutrophils # (A) 8.7 k/uL (1.3-7.7); Neutrophils % (A) 88 %; Platelet Count 218 k/uL (150-450); RBC 4.33 m/uL (4.30-5.90); WBC 9.8 k/uL (3.8-10.6)
[2019-08-30 07:05] LABS: Calcium 8.5 mg/dL (8.4-10.2)
[2019-08-30] MEDS: NICOTINE 21MG/24HR PATCH TRANSDERM SCH (08:27)
[2019-08-30] MEDS: ATORVASTATIN 40 MG TAB PO SCH (08:28)
[2019-08-30] MEDS: LISINOPRIL 2.5 MG TAB PO SCH ×2 (08:28→20:34)
[2019-08-30] MEDS: ASPIRIN 81 MG PO SCH (08:28)
[2019-08-30] MEDS: FUROSEMIDE 10 MG/ML 4 ML VIAL IV SCH ×2 (08:28→17:38)
[2019-08-30] MEDS: SPIRONOLACTONE 25 MG TAB PO SCH (08:28)
[2019-08-30] MEDS: methylPREDNISolone SOD SUCCI 40 MG/ML 1 ML VIAL IV SCH ×2 (08:28→17:38)
[2019-08-30] MEDS: SYMBICORT 160-4.5 MCG INHALER INHALATION SCH ×2 (08:31→18:48)
[2019-08-30] MEDS: IPRATROPIUM-ALBUTEROL 3 ML NEB INHALATION SCH ×4 (08:31→18:48)
--- NOTE | 2019-08-30 11:38 | P.PN ---
Subjective Progress Note Date: 08/30/19 Principal diagnosis: Shortness of breath, lower extremity edema 68-year-old white male, with history of emphysema, chronic and ongoing history of smoking, prior history of myocardial infarction, who has not seen a physician in the long time. Patient presented to the emergency department on 08/25/2019 with complaints of increasing shortness of breath for the past month, and i ncreasing swelling in his lower extremities, his edema continued to worsen, he developed florid blisters on his right lower extremity which eventually erupted and the skin is now open and weeping on his right lower leg. Denied any fever or chills, denied any chest pain, no cough, no wheezing, no palpitations. No nausea or vomiting, no diarrhea. Chest x-ray showed small right pleural effusion and trace left pleural effusion with bibasilar airspace disease, minimal central pulmonary vascular congestion and enlarged cardiac mediastinal silhouette. His lab work showed white blood cell count of 9.3, hemoglobin of 12.7, INR 1.3, d-dimer was elevated at 2.84, CTA chest showed questionable small pulmonary embolism involving the third order of the right pulmonary artery and the right lower lobe, background of COPD with severe cardiomegaly and bilateral pleural effusions. And nonspecific mediastinal lymphadenopathy. EKG showed sinus tachycardia with a rate of 116, with evidence of inferior and anterior infarct of undetermined age. Plasma lactic acid was 2.6 on admission, renal profile showed BUN of 26 and creatinine of 1.2, AST of 126, ALT of 114, alk phos of 116, troponins were 2.78, 2.76, and 3.26, proBNP was 15,004 100, COVID 19 was negative. Patient was started on IV diuretics, IV heparin for elevated troponins, cardiology consultation has been obtained, he was started on kathryn athing treatments. Echocardiogram showed severely impaired LV function with an EF of 20-25%, inferior hypokinesis, moderate to severe mitral regurgitation, [id number] tricuspid regurgitation, moderately severe pulmonary hypertension with right-sided pressures of 49.1 mmHg. The patient is seen today 08/27/2019 in follow-up on the selective care unit. He is currently sitting up in a chair at the bedside. Awake and alert in no acute distress. He is maintaining O2 saturation in the mid 90s on room air. He's been afebrile. Hemodynamically stable. White count 6.0. Hemoglobin 11.5. INR 1.3. Sodium 135. Potassium 4.1. Creatinine 1.19. AST 72. ALT 147. He remains on Symbicort, DuoNeb inhalations, IV Solu-Medrol. He is on IV diuretics. Heparin drip continues. Ultrasound of the liver reveals cholelithiasis. And mild fatty infiltration of liver. Right pleural effusion. Computed tomography scan of the abdomen revealed generalized anasarca, cardiomegaly, moderate right and small left pleural effusions, presacral edema. There is infrarenal abdominal aortic aneurysm measuring 6.3 x 4.8 cm. Circumferential plaque narrows the limited 2.2 cm. Aneurysms/ectasia of the ri ght and left common iliac arteries and 2.4 and 1.7 cm respectively. There is noted mediastinal lymphadenopathy and 7 mm left upper lobe pulmonary nodule seen on recent 08/25/2019 CT. The patient is seen today 08/28/2019 in follow-up on the selective care unit. He is currently resting flat in bed. Drowsy from recent cardiac catheterization. He is maintaining O2 saturations in the 90s on room air. He's afebrile. Hemodynamically stable. White count 8.7. Hemoglobin 11.1. Sodium 134. Potassium 4.6. Creatinine 1.19. Catheterization results pending but according to staff there is significant disease. The patient was seen by orthopedics yesterday regarding the open wound on the lateral aspect of the right knee where there is granulation tissue surrounding it and the screw is visible but no plans for intervention. They do suspect osteomyelitis of the right distal femur and recommended transfer to tertiary care facility for workup by orthopedic trauma and vascular. Vascular here recommended transfer as well once medically stable. He remains on bronchodilators, IV diuretics. We will add Kefzol. The patient is seen today 08/29/2019 in follow-up on the selective care unit. Christopher chairez is currently sitting up in bed. Awake and alert in no acute distress. He is maintaining O2 saturations in the 90s on room air. He denies any worsening shortness of breath, cough or congestion. He denies any chest pain or palpitations. Right knee wound culture is presumptive staph aureus. Sodium 136. Potassium 4.1. Creatinine 1.12. Infectious disease is on the case He's been initiated on vancomycin and ceftazidime. He remains on a heparin drip. Continued on bronchodilators and IV Solu-Medrol. Habitrol patch in place. The patient is seen today 08/30/2019 in follow-up on the selective care unit. He is currently sitting up in bed. Awake alert no acute distress. He is maintaining O2 saturations in the 90s on room air. He's been afebrile. Hemodynamically stable. Right leg wound culture positive for MSSA. White count 9.8. Hemoglobin 11.2. Sodium 134. Potassium 4.0. Creatinine 1.16. Glucose 131. He remains on ceftazidime and vancomycin. Continued on Symbicort, DuoNeb inhalations, IV Solu-Medrol. NicoDerm patch in place. Continue on IV diuretics. Objective - Vital Signs Vital signs: Vital Signs Temp 97.0 F L 08/30/19 08:00 Pulse 100 08/30/19 08:43 Resp 18 08/30/19 08:00 BP 104/60 08/30/19 08:00 Pulse Ox 96 08/30/19 08:00 Intake & Output 08/29/19 08/30/19 08/30/19 18:59 06:59 18:59 Intake Total 991.607 Output Total 1100 2775 Balance -108.393 -2775 Weight 95.5 kg Intake: Intake, IV Titration 271.607 Amount Heparin Sod,Pork in 0.45% 271.607 NaCl 25,000 unit In 0.45 % NaCl 1 250ml.bag @ 18 UNITS/KG/HR 15.93 mls/hr IV .[id number] [facility] Rx#: [id number] Oral 720 Output: Urine 1100 2775 Other: Voiding Method Urinal Urinal Urinal # Voids 2 - Exam GENERAL EXAM: Alert, pleasant, 68-year-old male patient, resting in bed, on room air, comfortable in no apparent distress. HEAD: Normocephalic/atraumatic. EYES: Normal reaction of pupils, equal size. Conjunctiva pink, sclera white. NOSE: Clear with pink turbinates. THROAT: No erythema or exudates. NECK: No masses, no JVD, no thyroid enlargement, no adenopathy. CHEST: No chest wall deformity. Symmetrical expansion. LUNGS: Equal air entry with bilateral posterior crackles right greater than left CVS: Regular rate and rhythm, normal S1 and S2, no gallops, no murmurs, no rubs ABDOMEN: Soft, nontender. No hepatosplenomegaly, normal bowel sounds, no guarding or rigidity. EXTREMITIES: No clubbing, 2+ lower extremity edema, left greater than right, with weeping open blisters on the right lower extremity with open wound on the lateral aspect of the right knee, no cyanosis, 2+ pulses and upper and lower extremities. MUSCULOSKELETAL: Muscle strength and tone normal. SPINE: No scoliosis or deformity SKIN: Weeping open blisters on right lower extremity, open wound with exposed screw on the lateral right knee CENTRAL NERVOUS SYSTEM: No focal deficits, tone is normal in all 4 extremities. PSYCHIATRIC: Alert and oriented -3. Appropriate affect. Intact judgment and insight. - Labs CBC & Chem 7: 08/30/19 06:08/30/19 06:13 Labs: Abnormal Lab Results - Last 24 Hours (Table) 08/29/19 08/29/19 08/29/19 Range/Units 12:02 14:13 14:13 RBC 4.29 L (4.30-5.90) m/uL Hgb 11.6 L (13.0-17.5) gm/dL Hct 37.6 L (39.0-53.0) % MCHC 30.7 L (31.0-37.0) g/dL RDW (11.5-15.5) % Neutrophils # 9.0 H (1.3-7.7) k/uL Lymphocytes # 0.3 L (1.0-4.8) k/uL APTT (22.0-30.0) sec Sodium (137-145) mmol/L BUN (9-20) mg/dL Glucose (74-99) mg/dL POC Glucose (mg/dL) 181 H (75-99) mg/dL Lactate Dehydrogenase 665 H (313-618) U/L 08/29/19 08/29/19 08/29/19 Range/Units 16:50 17:05 20:07 RBC (4.30-5.90) m/uL Hgb (13.0-17.5) gm/dL Hct (39.0-53.0) % MCHC (31.0-37.0) g/dL RDW (11.5-15.5) % Neutrophils # (1.3-7.7) k/uL Lymphocytes # (1.0-4.8) k/uL APTT 52.4 H (22.0-30.0) sec Sodium (137-145) mmol/L BUN (9-20) mg/dL Glucose (74-99) mg/dL POC Glucose (mg/dL) 188 H 211 H (75-99) mg/dL Lactate Dehydrogenase (313-618) U/L 08/30/19 08/30/19 08/30/19 Range/Units 06:13 06:13 06:14 RBC (4.30-5.90) m/uL Hgb 11.2 L (13.0-17.5) gm/dL Hct 37.4 L (39.0-53.0) % MCHC 30.0 L (31.0-37.0) g/dL RDW 16.0 H (11.5-15.5) % Neutrophils # 8.7 H (1.3-7.7) k/uL Lymphocytes # 0.3 L (1.0-4.8) k/uL APTT (22.0-30.0) sec Sodium 134 L (137-145) mmol/L BUN 36 H (9-20) mg/dL Glucose 131 H (74-99) mg/dL POC Glucose (mg/dL) 143 H (75-99) mg/dL Lactate Dehydrogenase (313-618) U/L Microbiology - Last 24 Hours (Table) 08/28/19 13:15 Gram Stain - Preliminary Knee - Right Wound Culture - Preliminary Staphylococcus aureus Gram Neg Bacilli Assessment and Plan Assessment: #1. Acute exacerbation of chronic obstructive pulmonary disease #2. Acute exacerbation of congestive heart failure with systolic dysfunction, echocardiogram showed severely impaired LV function with an EF of 20-25%, inferior hypokinesis, moderately enlarged right ventricle, moderate to severe mitral regurg, [id number] tricuspid regurg, and moderate pulmonary hypertension with right-sided pressures of 49.1 mmHg and IVC dilated with no significant inspiratory collapse with estimated right atrial pressure of greater than 15 mmHg #3. Elevated d-dimer, CTA showed findings suspicious for small pulmonary embolism involving the third order branch of the right pulmonary artery and the right lower lobe #4. Mediastinal lymphadenopathy and 7 mm left upper lobe pulmonary nodule. Computed tomography scan in 3 months recommended. #5. Generalized anasarca, cardiomegaly, moderate right and small left pleural effusions, presacral edema. Infrarenal abdominal aortic aneurysm measuring 6.3 x 4.8 cm, circumferential [id number] the lumen to 2.2 cm. 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 #6. Chronic and ongoing history of smoking #7. History of chronic obstructive pulmonary disease #8. Severe triple-vessel disease on cardiac catheterization from 08/28/2019 #9. Severe mitral regurgitation with moderate tricuspid regurgitation on ANA 08/28/2019 #10. Mild lactic acidosis, resolved with IV hydration #11. Hypertension #12. Hyperlipidemia #13. Medical noncompliance #14. Open wound on the right lateral aspect of the knee with screw exposure Plan: The patient was seen and evaluated by Dr. Ori Johnson from the pulmonary standpoint Continue bronchodilators and steroids Remains on IV diuretics Right knee wound culture positive for MSSA ID is on the case currently on vancomycin and ceftazidime Plan is for probable transfer to tertiary care center for ortho/vascular I, the cosigning physician, performed a history & physical examination of the patient. Lungs sounds with crackles in the posterior bases right greater than left. Maintaining good O2 saturations in the 90s on room air. I discussed the assessment and plan of care with my nurse practitioner, Shanell Jc. I attest to the above note as dictated by her.
[2019-08-30 12:16] LABS: Glucose,Whole Blood 171 mg/dL (75-99)
[2019-08-30] MEDS: ENOXAPARIN 80 MG/0.8 ML SYRINGE SQ SCH ×2 (13:01→20:35)
--- NOTE | 2019-08-30 13:23 | PN ---
PROGRESS NOTE Mr. Lujan is a 68-year-old male who presented with symptoms of congestive heart failure, was found to have severely impaired left ventricular systolic function, severe coronary artery disease and severe mitral regurgitation. He was also found to have an abdominal aortic aneurysm and protruding hardware from his right knee that is chronic. He is feeling better today. His breathing is better. He denies any chest pain. He denies any dizziness or palpitation. He is more comfortable. He continues to be at this time on aspirin once a day, Lipitor 40 mg daily, Coreg 6.25 mg twice a day, Lasix 40 mg IV q.8 hours. lisinopril 2.5 mg twice a day, spironolactone 25 mg daily. PHYSICAL EXAMINATION: Blood pressure 109/70 with a heart rate in the 80s. LUNGS: A few scattered wheezes. HEART: Regular rate and rhythm S1, S2. No S3 with a holosystolic murmur in the apex radiating to the axilla. ABDOMEN: Soft, nontender. No organomegaly. EXTREMITIES: +2 to 3 edema bilaterally with ulceration on the right lower extremity, healed. Dressing on the right knee. He is negative close to 3 L. LABS: His BUN and creatinine 36 and 1.16, potassium 4.0, hemoglobin of 11.2. IMPRESSION: 1. Severe ischemic cardiomyopathy with severe mitral regurgitation. 2. Severe coronary artery disease. 3. Abdominal aortic aneurysm. 4. Exposure of hardware in the right knee. 5. Chronic tobacco use. 6. Hyperlipidemia. 7. Hypertension. RECOMMENDATION: From the cardiac standpoint, will continue present therapy, follow his renal function. The patient may be a good candidate to be transferred to a tertiary care facility in view of his complex status and to address all his multiple issues. That was discussed yesterday with his primary care physician. I have discussed it with the patient as well. In the meantime, will continue present therapy. MMODL / IJN: [id number] /
[2019-08-30 15:23] VITALS: RESP 20
--- NOTE | 2019-08-30 15:54 | PN ---
PROGRESS NOTE DATE OF SERVICE: 08/30/2019 The patient is a 68-year-old pleasant white male admitted to the hospital with chest pain, shortness of breath and right septic knee arthritis. He had a CT chest that showed pulmonary embolism, on IV heparin. We are consulted for iron deficiency anemia. Patient was seen yesterday. We have requested for an EGD and colonoscopy during this hospitalization. The patient states that he is being transferred possibly to [facility] and at this time he does not want to have any endoscopic intervention done. He denies any GI symptoms. PHYSICAL EXAMINATION: Appears comfortable, no apparent distress. Vital signs are stable. Blood pressure is 109/70, pulse rate 82 and afebrile HEENT examination unremarkable. Conjunctivae pink. Sclerae anicteric. Oral cavity, no lesions. NECK: No JVD or lymph node enlargement. CHEST: Clear to auscultation. HEART: Regular rate and rhythm. ABDOMEN: Soft. Bowel sounds are positive. No organomegaly. EXTREMITIES: No pedal edema. Multiple superficial lacerations noted on the right lower extremity and there was protrusion of the chemo from the previous leg surgery as well as septic arthritis. LABS: From today WBC is 9.8, hemoglobin 11.2, platelets normal. Basic metabolic panel is within normal limits. IMPRESSION: 1. Acute pulmonary embolism on IV heparin. 2. Iron deficiency anemia with stable hemoglobin at 11.8 g/dL. No gastrointestinal symptoms. No prior history of EGD or colonoscopy in the past. 3. Coronary artery disease. Recent cardiac cath showed triple-vessel disease as well as severe aortic regurgitation. Cardiothoracic Surgery will be following the patient closely. 4. Right knee septic arthritis, on antibiotics. 5. Protrusion of the chemo from previous right leg surgery for which Orthopedics is following the patient who is considering transferring him to [facility]. RECOMMENDATIONS: I had a lengthy discussion regarding GI workup. I recommended an EGD and colonoscopy but the patient states that at this time he does not want to have any endoscopic intervention until his overall condition, especially with the right arthritis improves. In fact, he may be transferred to [facility] tomorrow. We will hold off on any endoscopic workup. We will continue with antibiotics. Continue with symptomatic and supportive care. We will follow with you closely. Thank you for this consultation. MMODL / IJN: [id number] /
--- NOTE | 2019-08-30 16:07 | P.DS ---
Providers Date of admission: 08/25/19 17:00 Expected date of discharge: 08/30/19 Attending physician: Sandy Ribeiro MD Consults: 08/25/19 18:11 Consult Physician Routine Consulting Provider: Eduar Rehman Consult Reason/Comments: COPD, PE Do you want consulting provider notified?: Yes Consult Physician Routine Consulting Provider: Dionne Saldana Consult Reason/Comments: Troponin elevation Do you want consulting provider notified?: Yes Consult Physician Stat Consulting Provider: Brett Montiel Consult Reason/Comments: PE Do you want consulting provider notified?: Yes 08/27/19 07:47 Consult Physician Stat Consulting Provider: Den Pina Consult Reason/Comments: right knee pain with history of chemo Do you want consulting provider notified?: Yes 08/27/19 13:09 Consult Physician Stat Consulting Provider: Amber Garcia Consult Reason/Comments: AAA Do you want consulting provider notified?: Yes 08/27/19 16:56 Consult Physician Stat Consulting Provider: Hammad Taveras Consult Reason/Comments: probable chronic osteomyelitis of RLE Do you want consulting provider notified?: Yes 08/28/19 12:49 Consult Physician Routine Consulting Provider: Anup Singh Consult Reason/Comments: mr,cad Do you want consulting provider notified?: Yes 08/28/19 13:39 Consult Physician Routine Consulting Provider: Will Guerra Consult Reason/Comments: iron deficiency anemia Do you want consulting provider notified?: Yes Primary care physician: [facility] Course: 68-year-old male with no significant PMH presents the ED for shortness of breath or lower extremity swelling. Patient reports shortness of breath that has been progressively getting worse over the past 2 months. Patient reports 3 months ago, he was able to walk 1 mile prior to feeling short of breath. Patient states that he can barely walk from his bed to the washroom without stopping to catch his breath. Patient also complains of lower extremity swelling that has b een also getting worse during this time period. Patient denies any orthopnea as he sleeps on his side. He denies any headache, nausea or vomiting, fever or chills, cough, chest pain, palpitations, changes in urination or bowel habits. No changes in appetite or weight. He denies any dizziness, numbness/weakness/tingling of the extremities. In the ED, his vital signs are stable except for pulse of 122. CBC showed hemoglobin of 12.7. INR was 1.3. D- dimer was 2.84. CMP showed sodium of 135, bicarbonate of 17, BUN of 26, glucose of 140. Lactic acid was 3.9. AST was 126, ALT of 114. Creatinine kinase was 189. Troponin was 2.78. BNP was 15,400, chest x-ray showing fluid overload. CTA chest was performed which confirmed PE, COPD with severe cardiomegaly and bilateral pleural effusions. Patient is admitted for anticipated greater than 48 hour admission for troponin elevation, CHF exacerbation and pulmonary embolus. Patient was initiated on heparin drip for diagnosis of PE and non-ST elevation ID. Hematology was on board for his new diagnosis of PE and recommended continuing heparin drip or Lovenox rather than oral anticoagulation given iron deficiency and need for GI workup. He was initially started on heparin drip and transitioned to Lovenox for transfer. Patient was noted to have elevated troponins of 2.78, 2.76 and 3.26 with EKG showing sinus tachycardia. Echocardiogram showed EF 30-35%. Cardiology was consulted and recommended cardiac catheterization. Cardiac cath and ANA was performed which showed multivessel occlusion and severe mitral regurgitation. Cardiothoracic surgery was consulted and recommended cardiac MRI for cardiac viability. Cardiothoracic surgery recommended transfer to a tertiary center for further workup and management of this patient. With regard to his CHF, he was diuresed with Lasix 40 mg IV 3 times a day. He was started on beta teri, lisinopril and Aldactone. His shortness of breath progressively improved during his hospitalization. he was also started on Symbicort, DuoNeb scheduled and as needed for shortness of breath and wheezing along with Solu-Medrol by pulmonology. CT abdomen and pelvis was performed which showed a 6.3 x 4.8 cm infrarenal AAA. Vascular surgery was consulted and recommended transfer to a tertiary center where they could follow along the cardiothoracic and orthopedic team. Patient was noted to have a right knee brought that was placed in the . X- ray was stable. Orthopedic surgery was consulted and recommended transfer for orthopedic trauma evaluation. Patient was kept on vancomycin and ceftazidime for concerns of right knee infection. Infectious disease was involved in the care of this patient. He had an elevated lactic acid which was thought to be related to dehydration that trended down to within normal limits. Patient was seen and examined. No acute events overnight. Patient reports considerable improvement in his breathing since admission. He denies any chest pain or palpitations. No nausea or vomiting. No fever or chills. Agreeable for transfer to [facility]. General: [non toxic], [no distress], [appears at stated age] Derm: [warm], [dry] Head: [atraumatic], [normocephalic], [symmetric] Eyes: [EOMI], [no lid lag], [anicteric sclera] Mouth: [no lip lesion], [mucus membranes moist] Cardiovascular: [S1S2 reg], [holosystolic murmur], [positive DP pulse bilateral], Lungs: [decreased breath sounds bilateral], [Rales bilaterally with crackles at the bases, improved] , [no accessory muscle use] Abdominal: [soft], [ nontender to palpation], [no guarding], [no appreciable organomegaly] Ext: [no gross muscle atrophy], [2+ pitting lower extremity edema with weeping on the right lower extremity, improved], [no contractures], [open sore over the right knee] Neuro: [no focal neuro deficits] Psych: [Alert], [oriented], [appropriate affect] Pulmonary embolus Troponin elevation with severe mitral regurgitation Acute CHF exacerbation Acute COPD exacerbation Infrarenal AAA aneurysm Right knee pain likely chronic osteomyelitis, possible infected hardware Lactic acidosis Transaminitis CTA chest shows small PE involving the third order branches of the right pulmonary artery, COPD with severe cardiomegaly bilateral pleural effusions. Lower extremity duplex negative. Patient was switched from heparin drip to Lovenox today. Anemia and paraprotein labs ordered by hematology. Discussed with Dr. Montiel yesterday, recommends continuation of heparin drip rather than any form of oral anticoagulation given iron deficiency and need for GI workup. Pulmonology, GI and hematology has been following the patient. His troponin elevation of 2.78, 2.76, 3.26 with EKG showing sinus tachycardia could be related to demand ischemia or troponin leak from CHF versus non-ST elevation ID. Telemetry monitoring as ordered. He will be continued on heparin drip as above. He will be started on aspirin. Coreg has been started by cardiology. Cardiac catheterization performed, report pending but multivessel occlusion requiring cardiothoracic intervention. Discussed with Katherine KIRK from cardiothoracic surgery, states that patient would need removal of infected hardware along with cardiac MRI for cardiac viability for any sort of cardiothoracic intervention. Discussed with Dr. Saldana, recommends transfer to tertiary center for multidisciplinary approach of the patient. His CTA chest is suggested of congestive heart failure exacerbation. Echo cardiac shows EF 20-25% with borderline concentric LVH. Patient be continued on Lasix 40 mg IV 3 times a day. Strict intake and outtake will be be ordered. Daily weights will be performed. He has been started on beta teri as above. Lisinopril and Aldactone started by cardiology. Consider AICD placement depending on cardiology recommendations. CTA chest shows chronic signs of COPD. Patient will be started on Symbicort, DuoNeb scheduled and as needed for shortness of breath and wheezing. He will be started on Solu-Medrol. Pulmonology is following the patient. Infrarenal aneurysm greater than [address] abdomen and pelvis. His blood pressure is relatively under control. Vascular surgery has been consulted and recommends transfer to tertiary center to be followed with orthopedic surgery. Appears to have deformity with previous history of chemo placement. Knee x-ray shows no acute abnormality. ESR and CRP are elevated. Case was discussed with orthopedic surgery who recommends transfer for orthopedic trauma evaluation. We will attempt to stabilize the patient with regard to his CHF, COPD and possible non-ST elevation ID prior to exploring transfer to tertiary facility. Infectious disease has been consulted and patient has been switched to vancomycin and ceftazidime given wound culture results. Patient had elevated lactic acid of 3.9, 2.4, 1.7. This is likely related to dehydration. He was given 1 L bolus in the ED. There are no clear signs of infection at this time. His most recent lactic acid is within normal limits. Patient has elevated AST of [id number]-within normal limits, ALT of [id number]. This is of unknown significance. Lipid panel and hepatic panel is within normal limits. Liver ultrasound shows mild fatty liver. Likely venous congestion. [We will continue IV diuresis as per discussion with Dr. Saldana. We will optimize his cardiac and respiratory medications. He will likely need a multidisciplinary approach at a tertiary center for infected hardware removal, CABG along with valve replacement, repair of aortic aneurysm. Prognosis is guarded at this time. I was able to call [facility] today who accepted the patient for transfer. Social work and nursing notified. This complex disch arge took about 45 minutes to complete.] Pertinent Studies: chest x-ray, chest CTA, echocardiogram, venous Doppler, CT abdomen and pelvis, liver ultrasound, knee x-ray, ANA Procedures: cardiac catheterization Patient Condition at Discharge: Stable Plan - Discharge Summary Discharge Rx Participant: Yes New Discharge Prescriptions: No Action Naproxen Sodium [Aleve] 220 - 440 mg PO DAILY PRN PRN Reason: Pain Discharge Medication List Naproxen Sodium [Aleve] 220 - 440 mg PO DAILY PRN 08/25/19 [History] Follow up Appointment(s)/Referral(s): [facility], [NON-STAFF] - 1-2 Days None,Stated [REFERRING] - 1-2 days Agustin Tejeda [Primary Care Provider] - 1-2 Days (New Primary Care Physician.)
--- NOTE | 2019-08-30 16:24 | PN ---
PROGRESS NOTE DATE OF SERVICE: 08/30/2019 REASON FOR FOLLOW UP: Right knee infection with concern for underlying osteo/septic arthritis. INTERVAL HISTORY: The patient is currently afebrile, has been breathing comfortably. Denies any chest pain or cough. No nausea, vomiting. No abdominal pain. Pain to the right knee is currently controlled. PHYSICAL EXAMINATION: Blood pressure 104/60 with a pulse of 82. Temperature is 97, he is 96% on room air. GENERAL description: The patient is an elderly male lying in bed in no distress. RESPIRATORY system: Unlabored breathing, clear to auscultation anteriorly. HEART S1, S2. Regular rate and rhythm. ABDOMEN: Soft, no tenderness. Right lateral heel wound is currently dressed up. No obvious drainage on the dressing. LABS: Hemoglobin 11.8, white count 9.8. BUN of 36, creatinine 1.16. Wound culture showing MSSA and gram-negative bacilli. DIAGNOSTIC IMPRESSION AND PLAN: Patient with right knee infection with hardware exposed. Culture with MSSA and gram- negative. Antibiotic switched to cefepime 2 g q.12h to cover for both, waiting transfer to tertiary care where the patient needs surgery and will likely need removal of the hardware from the right knee to help clear up this infection. MMODL / IJN: [id number] /
[2019-08-30 17:13] LABS: Glucose,Whole Blood 138 mg/dL (75-99)
[2019-08-30 19:53] LABS: Glucose,Whole Blood 245 mg/dL (75-99)
[2019-08-30 20:55] VITALS: BP 106/68; PULSE 86; TEMP 97.4
[2019-08-30] MEDS ORDERED: CEFEPIME 2 GM in SODIUM CHLORIDE 0.9% 100 ML IVPB SCH (21:00)
[2019-08-31] MEDS ORDERED: VANCOMYCIN TROUGH DUE 1 EACH MISC MISCELLANE ONE (11:00)
--- NOTE | 2019-09-02 12:44 | P.ARTDOP ---
Arterial Doppler LOWER EXTREMITY ARTERIAL DOPPLER: DATE OF SERVICE: 08/28/2019 Reason for study: Leg pain. Doppler waveforms: Multiphasic throughout on the left. Multiphasic at the right femoral but atypical below.. Pulse volume recording: []. Pressure gradients: Above the low thigh bilaterally. Across the knee on the right.. Ankle-brachial indices: 0.58 on the right and 0.8 on the left. Toe brachial indices: 0.64 on the right, 0.8 on the left Impression: Suspect mild fem-pop disease on the left and mild to moderate disease on the right. Cannot exclude some contribution by right iliac lesion. Does not really correlate with symptoms. Clinical correlation recommended.
== END 2019-08-30 22:57 | disposition short-term general hospital (02) | DRG 280 ==
LOC: EC 13:47 → 3SCARD 17:00
PROVIDERS: ADMIT Family Medicine; ATTEND Family Medicine
PROC: 4A023N6 Measurement of Cardiac Sampling and Pressure, Right Heart, Percutaneous Approach (ICD-10-PCS; principal; 2019-08-28 12:10)
PROC: B2111ZZ Fluoroscopy of Multiple Coronary Arteries using Low Osmolar Contrast (ICD-10-PCS; principal; 2019-08-28 12:10)
DX: I11.0 Hypertensive heart disease with heart failure (principal); I26.99 Other pulmonary embolism without acute cor pulmonale; I21.4 Non-ST elevation (NSTEMI) myocardial infarction; E87.2 Acidosis; M86.60 Other chronic osteomyelitis, unspecified site; M00.9 Pyogenic arthritis, unspecified; T84.53XA Infection and inflammatory reaction due to internal right knee prosthesis, initial encounter; D61.9 Aplastic anemia, unspecified; K92.2 Gastrointestinal hemorrhage, unspecified; M86.159 Other acute osteomyelitis, unspecified femur; I50.43 Acute on chronic combined systolic (congestive) and diastolic (congestive) heart failure; E78.5 Hyperlipidemia, unspecified; Z96.641 Presence of right artificial hip joint; Z96.651 Presence of right artificial knee joint; F17.200 Nicotine dependence, unspecified, uncomplicated; Z20.828 Contact with and (suspected) exposure to other viral communicable diseases; E86.0 Dehydration; I25.10 Atherosclerotic heart disease of native coronary artery without angina pectoris; I25.5 Ischemic cardiomyopathy; I27.20 Pulmonary hypertension, unspecified; M25.561 Pain in right knee; I71.4 Abdominal aortic aneurysm, without rupture; D50.9 Iron deficiency anemia, unspecified; I08.3 Combined rheumatic disorders of mitral, aortic and tricuspid valves; J43.9 Emphysema, unspecified; I73.9 Peripheral vascular disease, unspecified; R62.7 Adult failure to thrive; R59.0 Localized enlarged lymph nodes; I48.91 Unspecified atrial fibrillation; K80.20 Calculus of gallbladder without cholecystitis without obstruction; R91.1 Solitary pulmonary nodule; Z98.890 Other specified postprocedural states; Z91.19 Patient's noncompliance with other medical treatment and regimen; Z82.49 Family history of ischemic heart disease and other diseases of the circulatory system; Z86.73 Personal history of transient ischemic attack (TIA), and cerebral infarction without residual deficits; I25.2 Old myocardial infarction; Z79.82 Long term (current) use of aspirin; Z79.899 Other long term (current) drug therapy; Z86.711 Personal history of pulmonary embolism; Z86.79 Personal history of other diseases of the circulatory system
CPT/HCPCS: 36415; 71046; 71275; 74177; 76705; 80048; 80053; 80061; 80074; 82378; 82550; 82607; 82728; 82747; 82810; 83036; 83540; 83550; 83605; 83615; 83735; 83880; 83883; 83921; 84165; 84484; 85018; 85025; 85045; 85379; 85610; 85652; 85730; 86140; 86334; 87070; 87077; 87186; 87205; 93005; 93306; 93312; 93320; 93325; 93460; 93923; 93970; 94640; 96361; 96365; 96366; 96375; 96376; 99291

== ENCOUNTER 2019-09-20 09:27 | Inpatient (IN) | payer MEDICARE, OTHER ==
[2019-09-20] MEDS ORDERED: IPRATROPIUM-ALBUTEROL 3 ML NEB INHALATION STA (09:54)
--- NOTE | 2019-09-20 09:57 | ED ---
General Adult HPI - General Chief complaint: Shortness of Breath Stated complaint: SOB Time Seen by Provider: 09/20/19 09:30 Source: patient, RN notes reviewed, old records reviewed Mode of arrival: wheelchair Limitations: no limitations - History of Present Illness Initial comments: This is a 68-year-old male with past medical history significant for coronary artery disease which he states he needs bypass surgery but they won't do it. Patient states he also has COPD congestive heart failure and type blood pressure high cholesterol. Patient comes in today because early in the morning started having difficulty breathing and it continues currently. Patient denies any chest pain or palpitations. Patient denies any lightheadedness or dizziness. Patient states the breathing gets worse when he exerts himself. Patient denies any abdominal pain patient denies nausea vomiting diarrhea. Patient denies any recent fever chills or cough. - Related Data Home Medications Medication Instructions Recorded Confirmed Naproxen Sodium [Aleve] 220 - 440 mg PO DAILY PRN 08/25/19 08/25/19 Allergies Allergy/AdvReac Type Severity Reaction Status Date / Time No Known Allergies Allergy Verified 09/20/19 09:33 Review of Systems ROS Statement: Those systems with pertinent positive or pertinent negative responses have been documented in the HPI. ROS Other: All systems not noted in ROS Statement are negative. Past Medical History Past Medical History: Atrial Fibrillation, Coronary Artery Disease (CAD), CVA/TIA, Hyperlipidemia, Hypertension Additional Past Medical History / Comment(s): heart disease, angina History of Any Multi-Drug Resistant Organisms: None Reported Past Surgical History: Joint Replacement, Orthopedic Surgery Additional Past Surgical History / Comment(s): right knee, right hip replacements Past Anesthesia/Blood Transfusion Reactions: No Reported Reaction Past Psychological History: No Psychological Hx Reported Smoking Status: Former smoker Past Alcohol Use History: None Reported Past Drug Use History: None Reported - Past Family History Father Family Medical History: Coronary Artery Disease (CAD) Mother Family Medical History: No Reported History General Exam - General Exam Comments Initial Comments: GENERAL: Patient is well-developed and well-nourished. Patient is nontoxic and well- hydrated and is in mild distress. ENT: Neck is soft and supple. No significant lymphadenopathy is noted. Oropharynx is clear. Moist mucous membranes. Neck has full range of motion without eliciting any pain. EYES: The sclera were anicteric and conjunctiva were pink and moist. Extraocular movements were intact and pupils were equal round and reactive to light. Eyel ids were unremarkable. PULMONARY: Unlabored respirations. Slight expiratory wheeze CARDIOVASCULAR: There is a regular rate and rhythm without any murmurs gallops or rubs. ABDOMEN: Soft and nontender with normal bowel sounds. SKIN: Skin is clear with no lesions or rashes and otherwise unremarkable. NEUROLOGIC: Patient is alert and oriented x3. Cranial nerves II through XII are grossly in tact. Motor and sensory are also intact. Normal speech, volume and content. Symmetrical smile. MUSCULOSKELETAL: Normal extremities with adequate strength and full range of motion. 2+ edema left leg however patient states this is been ongoing for at least a month that he is very been hospitalized and this has been investigated. LYMPHATICS: No significant lymphadenopathy is noted PSYCHIATRIC: Normal psychiatric evaluation. Limitations: no limitations Course Vital Signs 09/20/19 09/20/19 09/20/19 09:32 10:30 10:39 Temperature 97.8 F Pulse Rate 97 90 90 Respiratory 18 9 L 18 Rate Blood Pressure 106/72 105/69 O2 Sat by Pulse 99 95 Oximetry 09/20/19 09/20/19 09/20/19 10:48 10:49 11:00 Temperature Pulse Rate 89 90 Respiratory 18 18 10 L Rate Blood Pressure 108/69 O2 Sat by Pulse 98 Oximetry 09/20/19 11:30 Temperature Pulse Rate 89 Respiratory 10 L Rate Blood Pressure 111/67 O2 Sat by Pulse 98 Oximetry Medical Decision Making - Medical Decision Making EKG shows normal sinus rhythm at 92 bpm AK interval 176 QRS is 146 QT interval 392 QTC is 484 per patient's EKG shows some Q waves in 3 and aVF as well as some ST segment depression in V5 and V6 and T-wave inversions in 1 and aVL and V5 and V6. Chest x-ray shows a right lower lobe pneumonia. I spoke with Dr. Kwong he agreed to admit the patient - Lab Data Result diagrams: 09/20/19 10:34 09/20/19 10:34 Lab Results 09/20/19 09/20/19 09/20/19 Range/Units 10:34 10:34 10:34 WBC 6.8 (3.8-10.6) k/uL RBC 3.74 L (4.30-5.90) m/uL Hgb 9.8 L (13.0-17.5) gm/dL Hct 31.4 L (39.0-53.0) % MCV 84.0 (80.0-100.0) fL MCH 26.2 (25.0-35.0) pg MCHC 31.2 (31.0-37.0) g/dL RDW 16.9 H (11.5-15.5) % Plt Count 380 (150-450) k/uL Neutrophils % 68 % Lymphocytes % 16 % Monocytes % 9 % Eosinophils % 5 % Basophils % 1 % Neutrophils # 4.6 (1.3-7.7) k/uL Lymphocytes # 1.1 (1.0-4.8) k/uL Monocytes # 0.6 (0-1.0) k/uL Eosinophils # 0.3 (0-0.7) k/uL Basophils # 0.1 (0-0.2) k/uL Hypochromasia Marked Anisocytosis Slight PT 11.3 (9.0-12.0) sec INR 1.1 (<1.2) APTT 23.6 (22.0-30.0) sec Sodium 139 (137-145) mmol/L Potassium 4.0 (3.5-5.1) mmol/L Chloride 102 (98-107) mmol/L Carbon Dioxide 27 (22-30) mmol/L Anion Gap 10 mmol/L BUN 27 H (9-20) mg/dL Creatinine 1.07 (0.66-1.25) mg/dL Est GFR (CKD-EPI)AfAm 83 (>60 ml/min/1.73 sqM) Est GFR (CKD-EPI)NonAf 72 (>60 ml/min/1.73 sqM) Glucose 104 H (74-99) mg/dL Plasma Lactic Acid Ari (0.7-2.0) mmol/L Calcium 8.8 (8.4-10.2) mg/dL Magnesium 1.9 (1.6-2.3) mg/dL Total Bilirubin 0.8 (0.2-1.3) mg/dL AST 15 L (17-59) U/L ALT 12 (4-49) U/L Alkaline Phosphatase 97 (38-126) U/L Troponin I (0.000-0.034) ng/mL NT-Pro-B Natriuret Pep pg/mL Total Protein 6.6 (6.3-8.2) g/dL Albumin 3.3 L (3.5-5.0) g/dL 09/20/19 09/20/19 09/20/19 Range/Units 10:34 10:34 10:34 WBC (3.8-10.6) k/uL RBC (4.30-5.90) m/uL Hgb (13.0-17.5) gm/dL Hct (39.0-53.0) % MCV (80.0-100.0) fL MCH (25.0-35.0) pg MCHC (31.0-37.0) g/dL RDW (11.5-15.5) % Plt Count (150-450) k/uL Neutrophils % % Lymphocytes % % Monocytes % % Eosinophils % % Basophils % % Neutrophils # (1.3-7.7) k/uL Lymphocytes # (1.0-4.8) k/uL Monocytes # (0-1.0) k/uL Eosinophils # (0-0.7) k/uL Basophils # (0-0.2) k/uL Hypochromasia Anisocytosis PT (9.0-12.0) sec INR (<1.2) APTT (22.0-30.0) sec Sodium (137-145) mmol/L Potassium (3.5-5.1) mmol/L Chloride (98-107) mmol/L Carbon Dioxide (22-30) mmol/L Anion Gap mmol/L BUN (9-20) mg/dL Creatinine (0.66-1.25) mg/dL Est GFR (CKD-EPI)AfAm (>60 ml/min/1.73 sqM) Est GFR (CKD-EPI)NonAf (>60 ml/min/1.73 sqM) Glucose (74-99) mg/dL Plasma Lactic Acid Ari 1.2 (0.7-2.0) mmol/L Calcium (8.4-10.2) mg/dL Magnesium (1.6-2.3) mg/dL Total Bilirubin (0.2-1.3) mg/dL AST (17-59) U/L ALT (4-49) U/L Alkaline Phosphatase (38-126) U/L Troponin I 0.039 H* (0.000-0.034) ng/mL NT-Pro-B Natriuret Pep 9180 pg/mL Total Protein (6.3-8.2) g/dL Albumin (3.5-5.0) g/dL Disposition Clinical Impression: Pneumonia Disposition: ADMITTED IP TO THIS HOSP Referrals: Orlin Laguna MD [Primary Care Provider] - 1-2 days Time of Disposition: 13:00
[2019-09-20 10:53] LABS: Anisocytosis Slight; Basophils # (A) 0.1 k/uL (0-0.2); Basophils % (A) 1 %; Eosinophils # (A) 0.3 k/uL (0-0.7); Eosinophils % (A) 5 %; HCT 31.4 % (39.0-53.0); HGB 9.8 gm/dL (13.0-17.5); Hypochromasia Marked; Lymphocytes # (A) 1.1 k/uL (1.0-4.8); Lymphocytes % (A) 16 %; MCH 26.2 pg (25.0-35.0); MCHC 31.2 g/dL (31.0-37.0); Mean Platelet Volume 7.1; Monocytes # (A) 0.6 k/uL (0-1.0); Monocytes % (A) 9 %; Neutrophils # (A) 4.6 k/uL (1.3-7.7); Neutrophils % (A) 68 %; Platelet Count 380 k/uL (150-450); RBC 3.74 m/uL (4.30-5.90); RDW 16.9 % (11.5-15.5); WBC 6.8 k/uL (3.8-10.6)
[2019-09-20 10:58] LABS: Albumin 3.3 g/dL (3.5-5.0); Calcium 8.8 mg/dL (8.4-10.2); INR 1.1 (<1.2); Magnesium 1.9 mg/dL (1.6-2.3); Partial Thromboplastin Time 23.6 sec (22.0-30.0); Prothrombin Time 11.3 sec (9.0-12.0); Total Bilirubin 0.8 mg/dL (0.2-1.3); Total Protein 6.6 g/dL (6.3-8.2)
--- NOTE | 2019-09-20 12:02 | XR ---
EXAMINATION TYPE: XR chest 2V DATE OF EXAM: 09/20/2019 COMPARISON: 08/25/2019 TECHNIQUE: PA and lateral views submitted. HISTORY: Shortness of breath FINDINGS: Heart is enlarged and there is diffuse interstitial pattern. Bilateral small effusion right basilar i nfiltrate. Hyperinflation suggests COPD. IMPRESSION: 1. COPD with right lower infiltrate and small effusion correlate for superimposed mild venous congest ion or interstitial pneumonitis.
[2019-09-20] MEDS ORDERED: PIPERACILLIN-TAZOBACTAM 3.375 GM in SODIUM CHLORIDE 0.9% 100 ML IVPB STA (13:00)
[2019-09-20] MEDS ORDERED: PNEUMONIA PROTOCOL UTILIZED 1 EACH MISC PO PRN (13:00)
[2019-09-20] MEDS ORDERED: LEVOFLOXACIN 750MG-D5W PMX 750 MG in DEXTROSE/WATER 1 150ML.BAG IVPB STA (13:14)
[2019-09-20] MEDS ORDERED: HYDROcodone/APAP 5-325MG 1 EACH TAB PO PRN (16:28)
[2019-09-20] MEDS ORDERED: ALPRAZolam 0.25 MG TAB PO PRN (16:28)
[2019-09-20] MEDS ORDERED: HYDROmorphone 0.5 MG/0.5 ML SYRINGE IVP PRN (16:28)
[2019-09-20] MEDS: BUMETANIDE 1 MG TAB PO SCH (18:58)
[2019-09-20] MEDS: IPRATROPIUM-ALBUTEROL 3 ML NEB INHALATION SCH (20:23)
[2019-09-20] MEDS: PIPERACILLIN-TAZOBACTAM 3.375 GM in SODIUM CHLORIDE 0.9% 100 ML IVPB SCH (20:33)
[2019-09-20] MEDS: HEPARIN SODIUM,PORCINE 5,000 UNIT/ML 1 ML VIAL SQ SCH (20:34)
--- NOTE | 2019-09-20 23:15 | HP ---
HISTORY AND PHYSICAL CHIEF COMPLAINT: Shortness of breath. HISTORY OF PRESENT ILLNESS: This 68-year-old gentleman with a past medical history of atrial fibrillation, history of CAD, CVA, TIA, hyperlipidemia, hypertension, history of DJD being followed by Dr. Reji Wesley in the outpatient setting was complaining of some shortness of breath. Patient was subsequently taken to [facility] and was admitted for further evaluation and treatment. Chest x-ray showed possible right lower lobe pneumonia. Patient also had COPD. The patient was also recently admitted to [facility] with complaints of pulmonary embolism. Patient also had multiple complicated issues including significant CAD which requires CABG along with valve replacement and repair of aortic aneurysm, and infected hardware removal. The patient had infected hardware in the right knee and the screw has come out according to him. The patient also has significant cellulitis being followed in the [facility] by Dr. Stephenson and Dr. Taveras also. There is no history of any fever, rigors. No history of headache, loss of consciousness, seizures at this time. PAST MEDICAL HISTORY: Atrial fibrillation, CAD, CVA, TIA, hypertension, hyperlipidemia, history of heart disease, angina. MEDICATIONS: Home medications are: 1. Nicotine 1 patch daily. 2. Trelegy 1 puff daily. 3. Aldactone 25 mg p.o. daily. 4. Zestril 10 mg daily. 5. Plavix 75 mg p.o. daily. 6. Bumex 2 mg p.o. b.i.d. 7. Ecotrin 81 mg p.o. daily. 8. Albuterol 2 puffs q.6 p.r.n. 9. Toprol-XL 50 mg p.o. daily. ALLERGIES: None. FAMILY HISTORY: History of coronary artery disease in the family. SOCIAL HISTORY: Previous history of smoking. No history of alcohol intake. REVIEW OF SYSTEMS: ENT: No diminished hearing or diminished vision. CARDIOVASCULAR SYSTEM: As mentioned earlier. RESPIRATORY SYSTEM: As mentioned earlier. GI: No nausea. : No dysuria NERVOUS SYSTEM: No numbness or weakness. ALLERGY/IMMUNOLOGY: No asthma or hayfever. MUSCULOSKELETAL: As mentioned earlier. HEMATOLOGY: No history of anemia. ENDOCRINE: As mentioned earlier. CONSTITUTIONAL: As mentioned earlier. DERMATOLOGY: Negative. RHEUMATOLOGY: Negative. PSYCHIATRY: As mentioned earlier. PHYSICAL EXAMINATION: The patient is alert and oriented x3. Pulse 95, blood pressure 115/74, respiration 18, temperature 97.6, pulse ox 99% on room air. HEENT: Conjunctivae normal. Oral mucosa moist. NECK: No jugular venous distention. CARDIOVASCULAR: S1, S2 muffled. Ejection systolic murmur. RESPIRATORY: Breath sounds diminished at the bases. A few scattered rhonchi and crackles. ABDOMEN: Soft, nontender. No mass palpable. LEGS: Significant infection, cellulitis of the right leg with multiple areas of excoriation dressed which is an area of the right knee, which is also sutured also. NERVOUS SYSTEM: Higher function as mentioned earlier. Moves all 4 limbs. No focal motor or sensory deficits. LYMPHATICS: No lymphadenopathy of the neck, axillae or groin. SKIN: As mentioned earlier. JOINTS: No active deforming arthropathy. LABS: WBC 6.8, hemoglobin 9.8. Sodium 139, potassium 4. Glucose 104. Troponin 0.039. Albumin is 3.3. ASSESSMENT: 1. Shortness of breath, possible congestive heart failure, chronic obstructive pulmonary disease acute exacerbation. 2. Possible right lower lobe pneumonia. 3. Possible acute on chronic systolic dysfunction ejection fraction 20% to 25%. 4. Severe coronary artery disease for coronary artery bypass grafting and possible valve replacement. 5. Moderate to severe mitral regurgitation, mild to moderate tricuspid regurgitation and moderate pulmonary hypertension in the previous 2D echo. 6. History of pulmonary embolus. 7. Possible infected hardware in the right knee. 8. History of right leg cellulitis. 9. History of possible infected hardware in the right knee. 10.Anemia, normocytic anemia of chronic disease. 11.Troponin 0.03 indeterminate. 12.History of atrial fibrillation. 13.History of coronary artery disease. 14.History of cerebrovascular accident , transient ischemic attack. 15.Hypertension. 16.Hyperlipidemia. 17.History of heart disease. 18.Remote history of nicotine dependence. 19.FULL CODE. RECOMMENDATIONS AND DISCUSSION: This 68-year-old gentleman presented with multiple complex medical issues. Will continue the current medications, continue symptomatic treatment, initiate broad- spectrum IV antibiotics. Otherwise consult Infectious Disease for wound care. Symptomatic treatment. Resume the home medications. Guarded prognosis because of multiple complex medical issues. Further recommendations to follow. Please send copy of dictation to Dr. Reji Wesley who is the primary physician. We will consult Orthopedic Surgery as well regarding the suture and possible infected hardware in the right knee. MMODL / IJN: [id number] /
[2019-09-21] MEDS: PIPERACILLIN-TAZOBACTAM 3.375 GM in SODIUM CHLORIDE 0.9% 100 ML IVPB SCH ×2 (04:32→12:42)
[2019-09-21] MEDS: SYMBICORT 80-4.5 MCG INHALER INHALATION SCH ×2 (07:18→19:02)
[2019-09-21] MEDS: IPRATROPIUM 0.5 MG/2.5 ML NEBU INHALATION SCH ×4 (07:18→19:00)
[2019-09-21] MEDS: IPRATROPIUM-ALBUTEROL 3 ML NEB INHALATION SCH ×3 (07:18→19:02)
[2019-09-21] MEDS: PANTOPRAZOLE 40 MG TABLET PO SCH (07:21)
--- NOTE | 2019-09-21 07:34 | XR ---
EXAMINATION TYPE: XR chest 1V portable DATE OF EXAM: 09/21/2019 HISTORY: Shortness of breath. COMPARISON: 09/20/2019 TECHNIQUE: Single view of the chest is submitted. FINDINGS: Demonstrated are scattered senescent parenchymal change. There is no evidence for focal infiltrate. The heart is stable. Hilar and mediastinal structures are within normal limits. Degenerative changes are seen of the dorsal spine. IMPRESSION: 1. Chronic changes without evidence for acute pulmonary disease.
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
[2019-09-21 08:57] LABS: Anisocytosis Slight; Basophils # (A) 0.1 k/uL (0-0.2); Basophils % (A) 1 %; Eosinophils # (A) 0.3 k/uL (0-0.7); Eosinophils % (A) 4 %; HCT 32.7 % (39.0-53.0); Hypochromasia Marked; Lymphocytes % (A) 17 %; MCHC 30.7 g/dL (31.0-37.0); MCV 84.8 fL (80.0-100.0); Mean Platelet Volume 7.2; Monocytes # (A) 0.5 k/uL (0-1.0); Monocytes % (A) 9 %; Neutrophils # (A) 3.8 k/uL (1.3-7.7); Neutrophils % (A) 67 %; Platelet Count 386 k/uL (150-450); RBC 3.86 m/uL (4.30-5.90); RDW 16.9 % (11.5-15.5); WBC 5.7 k/uL (3.8-10.6)
[2019-09-21] MEDS ORDERED: LISINOPRIL 10 MG TAB PO SCH (09:00)
[2019-09-21] MEDS ORDERED: SPIRONOLACTONE 25 MG TAB PO SCH (09:00)
[2019-09-21] MEDS: METOPROLOL SUCCINATE (ER) 50 MG TAB.ER.24H PO SCH (09:29)
[2019-09-21] MEDS: BUMETANIDE 1 MG TAB PO SCH ×2 (09:29→15:37)
[2019-09-21] MEDS: NICOTINE 21MG/24HR PATCH TRANSDERM SCH (09:29)
[2019-09-21] MEDS: ASPIRIN 81 MG PO SCH (09:29)
[2019-09-21] MEDS: CLOPIDOGREL 75 MG TAB PO SCH (09:29)
[2019-09-21] MEDS: HEPARIN SODIUM,PORCINE 5,000 UNIT/ML 1 ML VIAL SQ SCH ×2 (09:30→21:52)
[2019-09-21 11:28] LABS: Calcium 9.2 mg/dL (8.4-10.2); Potassium 4.2 mmol/L (3.5-5.1)
--- NOTE | 2019-09-21 13:30 | P.CONS ---
History of Present Illness - Reason for Consult Consult date: 09/21/19 Wound care - History of Present Illness This is a 68-year-old male who is known to the wound care center 1 week. Patient is a nonhealing ulceration to the right lateral knee and right anterior leg. Patient states about a month ago he noticed his right knee had a screw coming out through skin. He was seen at [facility] with a removed the hardware. Patient also underwent vascular testing which revealed a YANIRA of 0.54 on the right and 0.8 on the left. He was scheduled to have stenting done to his right lower extremity however was canceled and he was sent home. Patient is receiving home care at this time. Review of Systems Review Of Systems: Constitutional: No fever, no chills, no night sweats. No weight change. No weakness, fatigue or lethargy. No daytime sleepiness. Integumentary:reports wounds, no lesions. No rash or pruritus. No unusual bruising. No change in hair or nails. Past Medical History Past Medical History: Atrial Fibrillation, Coronary Artery Disease (CAD), CVA/TIA, Hyperlipidemia, Hypertension Additional Past Medical History / Comment(s): heart disease, angina History of Any Multi-Drug Resistant Organisms: None Reported Past Surgical History: Joint Replacement, Orthopedic Surgery Additional Past Surgical History / Comment(s): right knee, right hip replacements Past Anesthesia/Blood Transfusion Reactions: No Reported Reaction Past Psychological History: No Psychological Hx Reported Smoking Status: Former smoker Past Alcohol Use History: None Reported Past Drug Use History: None Reported - Past Family History Father Family Medical History: Coronary Artery Disease (CAD) Mother Family Medical History: Myocardial Infarction ([place]) Medications and Allergies Home Medications Medication Instructions Recorded Confirmed Type Albuterol Sulfate [Albuterol 2 puff PO RT-Q6H PRN 09/20/19 09/20/19 History Sulfate Hfa] Aspirin EC [Ecotrin Low Dose] 81 mg PO DAILY 09/20/19 09/20/19 History Bumetanide 2 mg PO BID 09/20/19 09/20/19 History Clopidogrel Bisulfate [Plavix] 75 mg PO DAILY 09/20/19 09/20/19 History Fluticasone/Umeclidin/Vilanter 1 puff INHALATION RT-DAILY 09/20/19 09/20/19 History [Trelegy Ellipta 100-62.5-25] Lisinopril [Zestril] 10 mg PO DAILY 09/20/19 09/20/19 History Metoprolol Succinate [Toprol XL] 50 mg PO DAILY 09/20/19 09/20/19 History Nicotine [Nicoderm Cq] 1 patch TRANSDERM DAILY 09/20/19 09/20/19 History Spironolactone 25 mg PO DAILY 09/20/19 09/20/19 History Allergies Allergy/AdvReac Type Severity Reaction Status Date / Time No Known Allergies Allergy Verified 09/20/19 14:52 Physical Exam Vitals: Vital Signs Temp Pulse Pulse Resp BP BP Pulse Ox 09/21/19 07:28 92 09/21/19 07:18 96 09/21/19 07:00 97.7 F 96 18 104/70 99 09/21/19 01:09 97.7 F 100 16 100/67 93 L 09/21/19 00:00 18 09/20/19 20:31 80 09/20/19 20:26 100 09/20/19 20:00 101 H 18 09/20/19 19:00 97.6 F 101 H 18 104/65 97 09/20/19 15:51 95 18 09/20/19 15:38 97.6 F 95 18 115/74 99 09/20/19 14:59 93 16 108/71 98 09/20/19 13:18 91 16 112/69 94 L Intake and Output 09/20/19 09/21/19 09/21/19 22:59 06:59 14:59 Intake Total 200 Output Total 100 2225 Balance - Intake: Intake, IV Titration 200 Amount Piperacillin-Tazobactam 3 200 .375 gm In Sodium Chloride 0.9% 100 ml @ 200 mls/hr IVPB ONCE STA Rx#:[id number] Output: Urine 100 2225 Other: Voiding Method Urinal Urinal Urinal Physical exam: General Appearance: Alert, cooperative, no distress, appears stated age. Skin: Right lateral knee is a full thickness with exposed structures etiology of surgical injury measuring approximately 1.2 x 1.1 x 0.5 cm there is no tunneling or undermining a median amount of serosanguineous drainage. The wound margin is indistinct and invisible there is a small amount of granulation within the wound bed is large amount of necrotic tissue such as adherent Slough. Right anterior lower leg is a full thickness without exposed support structures venous in nature. Measuring approximate 18.5 x 6.6 x 0.1 cm this is a cluster of multiple ulcerations. There is no tunneling or undermining noted. Small amount of serous drainage noted. Wound margins are well defined and not attached to the wound bed. No granulation seen within the wound bed. Large amount of necrotic tissue including adherent Slough. The periwound does exhibit some erythema. al l other Skin color, texture, tugor normal, no rashes or lesions. Neurologic: Alert oriented x3 Results CBC & Chem 7: 09/21/19 08:35 09/21/19 08:35 Labs: Abnormal Lab Results - Last 24 Hours (Table) 09/21/19 09/21/19 Range/Units 08:35 08:35 RBC 3.86 L (4.30-5.90) m/uL Hgb 10.0 L (13.0-17.5) gm/dL Hct 32.7 L (39.0-53.0) % MCHC 30.7 L (31.0-37.0) g/dL RDW 16.9 H (11.5-15.5) % Sodium 135 L (137-145) mmol/L BUN 23 H (9-20) mg/dL Creatinine 1.35 H (0.66-1.25) mg/dL Glucose 139 H (74-99) mg/dL Microbiology - Last 24 Hours (Table) 09/20/19 14:13 Gram Stain - Preliminary Leg - Right Wound Culture - Preliminary Presumptive Staph aureus Assessment and Plan (1) Non-pressure ulcer of right lower extremity with fat layer exposed Current Visit: Yes Status: Acute Code(s): L97.912 - NON-PRS CHR ULC UNSP PRT OF R LOW LEG W FAT LAYER EXPOSED SNOMED Code(s): 30682479 (2) 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 Right anterior leg honey alginate, saline moist gauze, dry gauze, rolled gauze secured paper tape. Secure with Deni wrap. Consult for vascular due to YANIRA on the right 0.54. Patient to return to the wound care center next week to September 27 at 10 :00. Thank you kindly for the consultation any questions please contact the wound care center DNP note has been reviewed and discussed with Dr. Mulligan and the impression and plan of care has been directed as dictated.
--- NOTE | 2019-09-21 15:14 | P.CNOR ---
History of Present Illness - [facility] Consult date: 09/21/19 Consult reason: other History of present illness: Patient is a 68-year-old male with multiple medical comorbidities presented to [facility] I days ago with regards shortness of breath. He has a known history of COPD along with coronary artery disease. He was admitted under internal medicine for further management and multiple consults for other medical specialties were placed. We did evaluate the patient about a month ago due to a wound that had developed on the lateral aspect of his right leg just proximal to the knee. It was determined he had a protruding screw from a previous surgery that was done back in 1985. Due to the complex medical issues that this patient has, we recommended transfer to a tertiary care facility for further workup by orthopedics and vascular. Patient was then transferred to [facility], they did do a bedside procedure to remove the screw. Patient states that he's had a wound VAC present for about 2 weeks, it's been discontinued for about a week at this time. He's also been seen in the wound care clinic and [facility] for evaluation and treatment of this wound and other wounds to the right lower extremity. Today at that site, patient admits to no significant discomfort involving the right knee. He has no hip pain at this time. He has notable wounds both nonhealing healing the right lower extremity distal to the knee. He denies any recent trauma. Review of Systems Constitutional: Reports as per [facility] Past Medical History Past Medical History: Atrial Fibrillation, Coronary Artery Disease (CAD), CVA/TIA, Hyperlipidemia, Hypertension Additional Past Medical History / Comment(s): heart disease, angina History of Any Multi-Drug Resistant Organisms: None Reported Past Surgical History: Joint Replacement, Orthopedic Surgery Additional Past Surgical History / Comment(s): right knee, right hip replacements Past Anesthesia/Blood Transfusion Reactions: No Reported Reaction Past Psychological History: No Psychological Hx Reported Smoking Status: Former smoker Past Alcohol Use History: None Reported Past Drug Use History: None Reported - Past Family History Father Family Medical History: Coronary Artery Disease (CAD) Mother Family Medical History: Myocardial Infarction ([place]) Medications and Allergies Home Medications Medication Instructions Recorded Confirmed Type Albuterol Sulfate [Albuterol 2 puff PO RT-Q6H PRN 09/20/19 09/20/19 History Sulfate Hfa] Aspirin EC [Ecotrin Low Dose] 81 mg PO DAILY 09/20/19 09/20/19 History Bumetanide 2 mg PO BID 09/20/19 09/20/19 History Clopidogrel Bisulfate [Plavix] 75 mg PO DAILY 09/20/19 09/20/19 History Fluticasone/Umeclidin/Vilanter 1 puff INHALATION RT-DAILY 09/20/19 09/20/19 History [Trelegy Ellipta 100-62.5-25] Lisinopril [Zestril] 10 mg PO DAILY 09/20/19 09/20/19 History Metoprolol Succinate [Toprol XL] 50 mg PO DAILY 09/20/19 09/20/19 History Nicotine [Nicoderm Cq] 1 patch TRANSDERM DAILY 09/20/19 09/20/19 History Spironolactone 25 mg PO DAILY 09/20/19 09/20/19 History Allergies Allergy/AdvReac Type Severity Reaction Status Date / Time No Known Allergies Allergy Verified 09/20/19 14:52 Physical Examination Right lower extremity: Obvious wound along the lateral aspect of the right distal femur, there is one nylon suture present, there is areas of granulation tissue present. No active drainage is visualized, no significant areas of surrounding erythema. There is no fluctuance appreciated in the area. Multiple healing scabs of the right lower extremity, there is also a new weeping wound on the medial aspect of the lower leg, it measures about 4" x 2". The calf is soft, no tenderness with palpation. Results - Labs Labs: Abnormal Lab Results - Last 24 Hours (Table) 09/21/19 09/21/19 Range/Units 08:35 08:35 RBC 3.86 L (4.30-5.90) m/uL Hgb 10.0 L (13.0-17.5) gm/dL Hct 32.7 L (39.0-53.0) % MCHC 30.7 L (31.0-37.0) g/dL RDW 16.9 H (11.5-15.5) % Sodium 135 L (137-145) mmol/L BUN 23 H (9-20) mg/dL Creatinine 1.35 H (0.66-1.25) mg/dL Glucose 139 H (74-99) mg/dL Microbiology - Last 24 Hours (Table) 07/05/20 14:13 Gram Stain - Preliminary Leg - Right Wound Culture - Preliminary Presumptive Staph aureus H & H 09/20/19 09/21/19 Range/Units 10:34 08:35 Hgb 9.8 L 10.0 L (13.0-17.5) gm/dL Hct 31.4 L 32.7 L (39.0-53.0) % Coagulation 09/20/19 Range/Units 10:34 INR 1.1 (<1.2) Result Diagrams: 09/21/19 08:35 09/21/19 08:35 Assessment and Plan Assessment: Chronic wounds right lower extremity Multiple medical comorbidities History of right distal femur fracture with ORIF procedure Plan: I was able to discuss the case, including with physical exam findings and im aging studies my attending Dr. Pina. No orthopedic surgical intervention recommended via our service Recommend local wound care of wounds involving the right lower extremity Still concern for possible osteomyelitis involving the area of the previous hardware. Due to patient's multiple medical comorbidities and current state, patient is a very poor candidate for surgery. A surgical options are considered, recommend follow-up with the orthopedic team then evaluated this patient [facility]. Other medical specialty recommendations We'll be available for any further questions regarding this patient Time with Patient: Less than 30
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
[2019-09-21] MEDS ORDERED: LEVOFLOXACIN 750MG-D5W PMX 750 MG in DEXTROSE/WATER 1 150ML.BAG IVPB SCH (16:00)
--- NOTE | 2019-09-21 19:01 | PN ---
PROGRESS NOTE DATE OF SERVICE: 09/21/2019 This 68-year-old gentleman admitted with shortness of breath had possibly COPD and CHF exacerbation. Patient also had right lower pneumonia. The patient also had significant bilateral leg cellulitis with a history of infected hardware in the right knee. Chest x-ray was done today which was reviewed personally by me. It showed bilateral increased infiltrate. The cultures are pending at this time. Creatinine is elevated at 1.35. Past medical history reviewed. REVIEW OF SYSTEMS: CARDIOVASCULAR SYSTEM: No angina, palpitations. RESPIRATORY SYSTEM: As mentioned earlier. GI: No nausea, vomiting. : No dysuria or retention. NERVOUS SYSTEM: No numbness, weakness. CURRENT MEDICATIONS: Reviewed. They include: 1. [place] 5 mg. 2. DuoNeb q.i.d. p.r.n. 3. Xanax. 5. Symbicort 80/4.5. 6. Bumex. 7. Plavix. 8. Heparin. 9. Dilaudid. 10.Levaquin. 11.Zestril. 12.Toprol-XL. 13.Habitrol. 14.Protonix. 15.Zosyn IV. PHYSICAL EXAMINATION: Patient alert and oriented x3. Pulse is 97, blood pressure 97/60, respiration 18, temperature 97.2, pulse ox 93% on room air. HEENT: Conjunctivae normal. Oral mucosa moist. NECK: No jugular venous distention. No carotid bruit. No lymph node enlargement. CARDIOVASCULAR SYSTEM: S1, S2 muffled. RESPIRATORY SYSTEM: Breath sounds diminished at the bases. A few rhonchi. ABDOMEN: Soft. LEGS: Significant pain and swelling of the right leg with some oozing and infection present. NERVOUS SYSTEM: No focal deficit. LABS: Labs at this time show WBC 5.7, hemoglobin 10, sodium 132, potassium 4 and creatinine is 1. Other labs are noted. Troponin 0.039. ASSESSMENT: 1. Shortness of breath, possible congestive heart failure, chronic obstructive pulmonary disease, acute exacerbation. 2. Possible right lower lobe pneumonia, present on admission, improving. 3. Possible acute on chronic systolic dysfunction, ejection fraction 20% to 25%. 4. Troponin elevated up to 0.039, indeterminate. 5. Severe coronary artery disease for coronary artery bypass grafting and possible valve replacement. 6. Moderate to severe mitral regurgitation, mild to moderate tricuspid regurgitation, moderate pulmonary hypertension per the previous 2D echo. 7. History of pulmonary embolism. 8. Extensive right leg cellulitis. 9. Possible infected hardware in the right knee history. 10.Anemia, normocytic, anemia of chronic disease. 11.History of atrial fibrillation. 12.History of coronary artery disease. 13.Cerebrovascular accident, transient ischemic attack. 14.Hypertension. 15.Hyperlipidemia. 16.History of heart disease. 17.Remote history of nicotine dependence. 18.FULL CODE. RECOMMENDATIONS AND DISCUSSION: I recommend to continue current medications, continue with the monitoring, symptomatic treatment. Cut down the dose of Bumex. Stop Lisinopril. Continue the broad- spectrum IV antibiotics. Infectious Disease has been consulted. I would also recommend cardiology consultation because of his extensive cardiac history. Otherwise, the prognosis guarded because of multiple complex medical issues. DVT prophylaxis. Further recommendations to follow. See orders for further details. Continue symptomatic treatment. Patient understands and agrees. CHAVEZ / BENTONN: [id number] / MTDD
--- NOTE | 2019-09-21 20:35 | PN ---
PROGRESS NOTE DATE OF SERVICE: 09/21/2019 REASON FOR FOLLOWUP: Right knee and lower extremity wound and a question of pneumonia. INTERVAL HISTORY: The patient is currently afebrile. The patient is breathing more comfortably. Denies having any chest pain or cough. No nausea, no vomiting, no abdominal pain. No pain to the right knee or the leg wound area. PHYSICAL EXAMINATION: Blood pressure 97/60 with a pulse of 97, temperature is 97.5. He is 96% on room air. General description is an elderly male up in the bed in no distress. RESPIRATORY SYSTEM: Unlabored breathing. Clear to auscultation anteriorly. HEART: S1, S2. Regular rate and rhythm. ABDOMEN: Soft. No tenderness. Right leg wound is currently dressed up. No obvious drainage on the dressing. LABS: Hemoglobin is 10, white count 5.7, BUN of 23, creatinine 1.35. Local wound culture showing Staph aureus. DIAGNOSTIC IMPRESSION AND PLAN: Patient with a right knee and lower extremity wound in this patient with recent removal of hardware from the right knee area, and he was told there was no evidence of any infected hardware or infected knee. However, superficial culture is now showing Staph aureus. Patient is currently covered with the Levaquin, with no evidence of any pneumonia. Antibiotic will be switched over to cefazolin. Local care to continue as ordered and monitor his clinical course closely. MMODL / IJN: [id number] /
[2019-09-22] MEDS: PANTOPRAZOLE 40 MG TABLET PO SCH (06:58)
[2019-09-22] MEDS: CLOPIDOGREL 75 MG TAB PO SCH (07:50)
[2019-09-22] MEDS: BUMETANIDE 1 MG TAB PO SCH (07:50)
[2019-09-22] MEDS: HEPARIN SODIUM,PORCINE 5,000 UNIT/ML 1 ML VIAL SQ SCH ×2 (07:50→20:16)
[2019-09-22] MEDS: ASPIRIN 81 MG PO SCH (07:50)
[2019-09-22] MEDS: NICOTINE 21MG/24HR PATCH TRANSDERM SCH (07:50)
[2019-09-22 07:57] LABS: Anisocytosis Slight; Basophils # (A) 0.1 k/uL (0-0.2); Basophils % (A) 1 %; Eosinophils # (A) 0.3 k/uL (0-0.7); Eosinophils % (A) 6 %; HCT 31.4 % (39.0-53.0); HGB 9.8 gm/dL (13.0-17.5); Hypochromasia Marked; Lymphocytes # (A) 1.3 k/uL (1.0-4.8); Lymphocytes % (A) 22 %; MCH 26.1 pg (25.0-35.0); MCHC 31.1 g/dL (31.0-37.0); Mean Platelet Volume 6.8; Monocytes # (A) 0.6 k/uL (0-1.0); Monocytes % (A) 10 %; Neutrophils # (A) 3.6 k/uL (1.3-7.7); Neutrophils % (A) 59 %; Platelet Count 407 k/uL (150-450); RBC 3.74 m/uL (4.30-5.90); RDW 16.8 % (11.5-15.5)
[2019-09-22 08:12] LABS: Calcium 8.8 mg/dL (8.4-10.2)
[2019-09-22] MEDS: METOPROLOL SUCCINATE (ER) 50 MG TAB.ER.24H PO SCH (08:43)
[2019-09-22] MEDS: IPRATROPIUM 0.5 MG/2.5 ML NEBU INHALATION SCH ×4 (09:45→20:33)
[2019-09-22] MEDS: SYMBICORT 80-4.5 MCG INHALER INHALATION SCH ×3 (09:45→20:32)
[2019-09-22] MEDS: IPRATROPIUM-ALBUTEROL 3 ML NEB INHALATION SCH ×4 (09:45→20:31)
--- NOTE | 2019-09-22 15:25 | P.PN ---
Subjective Progress Note Date: 09/22/19 Patient is seen and examined at the bedside. Patient denies any chest or abdominal pain, shortness of breath has improved. Infectious disease, wound care, and orthopedics are on conuslt. He remains on IV antibiotics. Objective - Vital Signs Vital signs: Vital Signs Temp 98.0 F 09/22/19 06:43 Pulse 90 09/22/19 06:43 Resp 18 09/22/19 06:43 BP 94/59 09/22/19 06:43 Pulse Ox 92 L 09/22/19 06:43 Intake & Output 09/21/19 09/22/19 09/22/19 18:59 06:59 18:59 Output Total 350 1150 Balance -350 -1150 Output: Urine 350 1150 Other: Voiding Method Urinal Urinal # Voids 2 - Exam General appearance: The patient is alert, oriented, in no acute distress. HET: Head is normocephalic and atraumatic. Neck: Supple without lymphadenopathy. Trachea midline. Heart: S1 S2. Regular rate and rhythm. Lungs: No crackles or wheezes are heard. Extremities: Right lower extremity with multiple ulcerations, dressing clean dry and intact. Neurological: No focal deficits. Decreased sensation to the right lower extremity. - Labs CBC & Chem 7: 09/22/19 06:47 09/22/19 06:47 Labs: Abnormal Lab Results - Last 24 Hours (Table) 09/21/19 09/22/19 09/22/19 Range/Units 08:35 06:47 06:47 RBC 3.74 L (4.30-5.90) m/uL Hgb 9.8 L (13.0-17.5) gm/dL Hct 31.4 L (39.0-53.0) % RDW 16.8 H (11.5-15.5) % Sodium 135 L (137-145) mmol/L BUN 23 H 23 H (9-20) mg/dL Creatinine 1.35 H 1.39 H (0.66-1.25) mg/dL Glucose 139 H (74-99) mg/dL Microbiology - Last 24 Hours (Table) 09/20/19 14:13 Gram Stain - Preliminary Leg - Right Wound Culture - Preliminary Presumptive Staph aureus Assessment and Plan Assessment: 1. Infrarenal abdominal aortic aneurysm measuring 6.3 cm 2. Peripheral arterial disease with nonhealing right lower extremity ulcers 3. Acute on chronic systolic congestive heart failure with symptoms of progressive dyspnea and peripheral edema 5. COPD with severe cardiomegaly 6. Bilateral lower extremity peripheral edema, with weeping blisters and sores on the right lower extremity Plan: Dr. Moore to discuss with cardiology and infectious disease plans moving forward for any vascular surgical interventions. Continue current medical management, continue recommendations per infectious disease and wound care management. Patient may be discharged home when medically stable. Dr. Moore had discussion with patient and he will see him in the office after discharge to discuss further vascular surgical recommendations for PAD and AAA . The above dictated assessment and findings were discussed with Dr. Moore. The impression and plan of care have been directed as dictated.
--- NOTE | 2019-09-22 17:31 | P.PN ---
Subjective 68-year-old male was admitted for breath COPD CHF exacerbation there is no evidence of pneumonia. Patient had cellulitis and infected hardware of the right knee on admission patient is on IV antibiotics being followed by infectious disease. Patient is being followed by multiple consultants patient creatinine is trending upward and creatinine is 1.35 I'll hold off on the Lasix patient is presently will indicate this time.patient had chronic systolic dysfunction with EF of around 20-25% not in acute exacerbation at this time. Constitutional: Denied any fatigue denied any fever. Cardio vascular: denied any chest pain, palpitations Gastrointestinal denied any nausea vomiting Pulmonary: Denied any shortness of breath cough Neurologic denied any new focal deficits All inpatient medications were reviewed and appropriate changes in these med ications as dictated in the interval history and assessment and plan. Objective - Vital Signs Vital signs: Vital Signs Temp 98.1 F 09/22/19 15:00 Pulse 104 H 09/22/19 15:00 Resp 17 09/22/19 15:00 BP 101/65 09/22/19 15:00 Pulse Ox 93 L 09/22/19 15:00 Intake & Output 09/21/19 09/22/19 09/22/19 18:59 06:59 18:59 Intake Total 500 Output Total 350 1150 400 Balance -350 -1150 100 Intake: Oral 500 Output: Urine 350 1150 400 Other: Voiding Method Urinal Urinal # Voids 2 1 - Exam PHYSICAL EXAMINATION: GENERAL: The patient is alert and oriented x3, not in any acute distress. Well developed, well nourished. HEENT: Pupils are round and equally reacting to light. EOMI. No scleral icterus. No conjunctival pallor. Normocephalic, atraumatic. No pharyngeal erythema. No thyromegaly. CARDIOVASCULAR: S1 and S2 present. No murmurs, rubs, or gallops. PULMONARY: Chest is clear to auscultation, no wheezing or crackles. ABDOMEN: Soft, nontender, nondistended, normoactive bowel sounds. No palpable organomegaly. MUSCULOSKELETAL: No joint swelling or deformity. EXTREMITIES: No cyanosis, clubbing, or pedal edema. right leg is dressed up NEUROLOGICAL: Gross neurological examination did not reveal any focal deficits. SKIN: No rashes. - Labs CBC & Chem 7: 09/22/19 06:47 09/22/19 06:47 Labs: Abnormal Lab Results - Last 24 Hours (Table) 09/22/19 09/22/19 Range/Units 06:47 06:47 RBC 3.74 L (4.30-5.90) m/uL Hgb 9.8 L (13.0-17.5) gm/dL Hct 31.4 L (39.0-53.0) % RDW 16.8 H (11.5-15.5) % BUN 23 H (9-20) mg/dL Creatinine 1.39 H (0.66-1.25) mg/dL Microbiology - Last 24 Hours (Table) 09/20/19 14:13 Gram Stain - Preliminary Leg - Right Wound Culture - Preliminary Presumptive Staph aureus Gram Neg Bacilli Assessment and Plan Plan: -shortness of breath: Patient was treated for congestive heart failure exacerbation shortness of breath resolved at this time patient was also treated for COPD exacerbation -No evidence of pneumonia -infected hardware in the right knee patient is presently on ceftezole and. -acute renal failure: Secondary to excessive diuresis diuresis will be heldAnn Will repeat basic metabolic profile tomorrow -congestive heart failure chronic systolic dysfunction year. Around 20-25% patient is not in acute exacerbation patient isn't willing to make -coronary artery disease with CABG in the past -Moderate to severe mitral regurgitation and moderate pulmonary hypertension -anemia of chronic disease -hyperlipidemia -Hypertension
--- NOTE | 2019-09-22 22:11 | PN ---
PROGRESS NOTE DATE OF SERVICE: 09/22/2019 REASON FOR FOLLOWUP: Right lower extremity wound and a question of cellulitis. INTERVAL HISTORY: The patient is currently afebrile. The patient is breathing more comfortably. Denies having any chest pain or cough. No nausea, no vomiting, no abdominal pain or any worsening pain to the leg wound area. PHYSICAL EXAMINATION: Blood pressure is 96/59 with a pulse of 90, temperature 97.6. He is 96% on room air. General description is an elderly male lying in bed in no distress. RESPIRATORY SYSTEM: Unlabored breathing. Clear to auscultation anteriorly. HEART: S1, S2. Regular rate and rhythm. ABDOMEN: Soft. No tenderness. Right leg wound is currently dressed up. No obvious drainage on the dressing. LABS: Hemoglobin 9.1, white count 6.0, BUN of 23, creatinine 1.39. DIAGNOSTIC IMPRESSION AND PLAN: Patient with right leg and knee area wound. Local cultures showing presumptive Staph aureus and Gram-negative, more likely colonization, as no significant cellulitis has been noted. Local wound care to continue as ordered. Antibiotic Cefazolin. Continue with supportive care. MMODL / IJN: [id number] /
[2019-09-23 02:55] VITALS: TEMP 98.1
[2019-09-23] MEDS: NICOTINE 21MG/24HR PATCH TRANSDERM SCH (07:57)
[2019-09-23] MEDS: METOPROLOL SUCCINATE (ER) 50 MG TAB.ER.24H PO SCH (07:58)
[2019-09-23] MEDS: ASPIRIN 81 MG PO SCH (07:58)
[2019-09-23] MEDS: CLOPIDOGREL 75 MG TAB PO SCH (07:58)
[2019-09-23] MEDS: PANTOPRAZOLE 40 MG TABLET PO SCH (07:58)
[2019-09-23] MEDS: HEPARIN SODIUM,PORCINE 5,000 UNIT/ML 1 ML VIAL SQ SCH (07:58)
[2019-09-23 08:06] LABS: Anisocytosis Slight; Basophils # (A) 0.1 k/uL (0-0.2); Basophils % (A) 1 %; Eosinophils # (A) 0.5 k/uL (0-0.7); Eosinophils % (A) 7 %; HCT 32.7 % (39.0-53.0); Hypochromasia Moderate; Lymphocytes # (A) 1.1 k/uL (1.0-4.8); Lymphocytes % (A) 18 %; MCH 25.4 pg (25.0-35.0); MCHC 30.6 g/dL (31.0-37.0); MCV 83.1 fL (80.0-100.0); Mean Platelet Volume 6.7; Monocytes # (A) 0.6 k/uL (0-1.0); Monocytes % (A) 10 %; Neutrophils # (A) 3.8 k/uL (1.3-7.7); Neutrophils % (A) 61 %; Platelet Count 367 k/uL (150-450); RBC 3.94 m/uL (4.30-5.90); RDW 17.4 % (11.5-15.5); WBC 6.1 k/uL (3.8-10.6)
[2019-09-23 08:14] LABS: Potassium 4.3 mmol/L (3.5-5.1)
[2019-09-23 09:21] LABS: C Reactive Protein 26.3 mg/L (<10.0)
[2019-09-23 09:27] LABS: Erythrocyte Sedimentation Rate 43 mm/hr (0-15)
[2019-09-23] MEDS: IPRATROPIUM 0.5 MG/2.5 ML NEBU INHALATION SCH ×2 (09:50→12:30)
[2019-09-23] MEDS: IPRATROPIUM-ALBUTEROL 3 ML NEB INHALATION SCH ×2 (09:50→12:31)
[2019-09-23] MEDS ORDERED: IPRATROPIUM-ALBUTEROL 3 ML NEB ONE (11:00)
[2019-09-23] MEDS ORDERED: SYMBICORT 160-4.5 MCG INHALER INHALATION ONE (11:00)
[2019-09-23] MEDS: SYMBICORT 80-4.5 MCG INHALER INHALATION SCH (12:31)
--- NOTE | 2019-09-23 13:43 | P.PN ---
Subjective Progress Note Date: 09/23/19 Patient is seen and examined at the bedside. Patient denies any chest or abdominal pain, shortness of breath has improved. Infectious disease, wound care, and orthopedics are on conuslt. He remains on IV antibiotics. No acute changes through the night. Objective - Vital Signs Vital signs: Vital Signs Temp 98.1 F 09/23/19 07:00 Pulse 100 09/23/19 11:10 Resp 16 09/23/19 08:00 BP 101/68 09/23/19 07:00 Pulse Ox 95 09/23/19 07:00 Intake & Output 09/22/19 09/23/19 09/23/19 18:59 06:59 18:59 Intake Total 500 50 Output Total 400 300 Balance 100 -250 Intake: Intake, IV Titration 50 Amount ceFAZolin 2 gm In Sodium 50 Chloride 0.9% 50 ml @ 100 mls/hr IVPB Q8HR EMERSON Rx# :[id number] Oral 500 Output: Urine 400 300 Other: Voiding Method Urinal Urinal # Voids 1 2 - Exam General appearance: The patient is alert, oriented, in no acute distress. HET: Head is normocephalic and atraumatic. Neck: Supple without lymphadenopathy. Trachea midline. Heart: S1 S2. Regular rate and rhythm. Lungs: No crackles or wheezes are heard. Extremities: Right lower extremity with multiple ulcerations, dressing clean dry and intact. Neurological: No focal deficits. Decreased sensation to the right lower extremity. - Labs CBC & Chem 7: 09/23/19 07:42 09/23/19 07:42 Labs: Abnormal Lab Results - Last 24 Hours (Table) 09/23/19 09/23/19 Range/Units 07:42 07:42 RBC 3.94 L (4.30-5.90) m/uL Hgb 10.0 L (13.0-17.5) gm/dL Hct 32.7 L (39.0-53.0) % MCHC 30.6 L (31.0-37.0) g/dL RDW 17.4 H (11.5-15.5) % ESR 43 H (0-15) mm/hr Sodium 136 L (137-145) mmol/L Glucose 101 H (74-99) mg/dL C-Reactive Protein 26.3 H (<10.0) mg/L Microbiology - Last 24 Hours (Table) 09/20/19 14:13 Gram Stain - Final Leg - Right Wound Culture - Final Staphylococcus aureus Serratia liquefaciens Assessment and Plan Assessment: 1. Infrarenal abdominal aortic aneurysm measuring 6.3 cm 2. Peripheral arterial disease with nonhealing right lower extremity ulcers 3. Acute on chronic systolic congestive heart failure with symptoms of progressive dyspnea and peripheral edema 5. COPD with severe cardiomegaly 6. Bilateral lower extremity peripheral edema, with weeping blisters and sores on the right lower extremity Plan: Continue current medical management, continue recommendations per infectious disease and wound care management. Patient may be discharged home when medicall y stable. Dr. Moore had discussion with patient and he will see him in the office after discharge to discuss further vascular surgical recommendations for PAD and AAA . The above dictated assessment and findings were discussed with Dr. Garcia The impression and plan of care have been directed as dictated.
--- NOTE | 2019-09-23 14:44 | P.DS ---
Providers Date of admission: 09/20/19 13:01 Attending physician: Allan Kwong Consults: 09/20/19 14:03 Consult Physician Stat Consulting Provider: Hammad Taveras Consult Reason/Comments: wound Do you want consulting provider notified?: Yes 09/21/19 09:37 Consult Physician Routine Consulting Provider: Edwin Stone Consult Reason/Comments: possible infected hardware Do you want consulting provider notified?: Yes 09/21/19 13:15 Consult Physician Routine Consulting Provider: Blair Moore Consult Reason/Comments: Nonhealing ulcerations right lower extremity, YANIRA 0.54 on right, 0.8 on lef Do you want consulting provider notified?: Yes Primary care physician: [facility] Course: 68-year-old male was admitted for breath COPD CHF exacerbation there is no evidence of pneumonia. Patient had cellulitis and infected hardware of the right knee on admission patient is on IV antibiotics being followed by infectious disease. Patient is being followed by multiple consultants patient creatinine is trending upward and creatinine is 1.35 I'll hold off on the Lasix patient is presently will indicate this time.patient had chronic systolic dysfunction with EF of around 20-25% not in acute exacerbation at this time. 09/23/2019 Patient is clinically doing well serum creatinine improved patient will be discharged today patient blood pressure is borderline low because of him cutting down thedose of lisinopril patient is not receiving lisinopril here patient will be resumed back on his diuretic therapy. Patient had very poor ejection fraction patient is high risk for readmission. Patient will discharge home with home care PHYSICAL EXAMINATION: GENERAL: The patient is alert and oriented x3, not in any acute distress. Well developed, well nourished. HEENT: Pupils are round and equally reacting to light. EOMI. No scleral icterus. No conjunctival pallor. Normocephalic, atraumatic. No pharyngeal erythema. No thyromegaly. CARDIOVASCULAR: S1 and S2 present. No murmurs, rubs, or gallops. PULMONARY: Chest is clear to auscultation, no wheezing or crackles. ABDOMEN: Soft, nontender, nondistended, normoactive bowel sounds. No palpable organomegaly. MUSCULOSKELETAL: No joint swelling or deformity. EXTREMITIES: No cyanosis, clubbing, or pedal edema. right leg is dressed up NEUROLOGICAL: Gross neurological examination did not reveal any focal deficits. SKIN: No rashes. 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 -acute renal failure: Secondary to excessive diuresis diuresis will be heldAnn Will repeat basic metabolic profile tomorrow -congestive heart failure chronic systolic dysfunction year. Around 20-25% patient is not in acute exacerbation patient isn't willing to make -coronary artery disease with CABG in the past -Moderate to severe mitral regurgitation and moderate pulmonary hypertension -anemia of chronic disease -hyperlipidemia -Hypertension Plan - Discharge Summary New Discharge Prescriptions: New Lisinopril [Zestril] 2.5 mg PO DAILY #30 tab Ciprofloxacin HCl [Cipro] 500 mg PO Q12H 10 Days #20 tab Cephalexin [Keflex] 500 mg PO Q8HR 10 Days #30 cap Continue Nicotine [Nicoderm Cq] 1 patch TRANSDERM DAILY Fluticasone/Umeclidin/Vilanter [Trelegy Ellipta 100-62.5-25] 1 puff INHALATION RT-DAILY Spironolactone 25 mg PO DAILY Clopidogrel Bisulfate [Plavix] 75 mg PO DAILY Bumetanide 2 mg PO BID Aspirin EC [Ecotrin Low Dose] 81 mg PO DAILY Albuterol Sulfate [Albuterol Sulfate Hfa] 2 puff PO RT-Q6H PRN PRN Reason: Wheezing Metoprolol Succinate [Toprol XL] 50 mg PO DAILY Discontinued Lisinopril [Zestril] 10 mg PO DAILY Discharge Medication List Albuterol Sulfate [Albuterol Sulfate Hfa] 2 puff PO RT-Q6H PRN 09/20/19 [History] Aspirin EC [Ecotrin Low Dose] 81 mg PO DAILY 09/20/19 [History] Bumetanide 2 mg PO BID 09/20/19 [History] Clopidogrel Bisulfate [Plavix] 75 mg PO DAILY 09/20/19 [History] Fluticasone/Umeclidin/Vilanter [Trelegy Ellipta 100-62.5-25] 1 puff INHALATION RT-DAILY 09/20/19 [History] Metoprolol Succinate [Toprol XL] 50 mg PO DAILY 09/20/19 [History] Nicotine [Nicoderm Cq] 1 patch TRANSDERM DAILY 09/20/19 [History] Spironolactone 25 mg PO DAILY 09/20/19 [History] Cephalexin [Keflex] 500 mg PO Q8HR 10 Days #30 cap 09/23/19 [Rx] Ciprofloxacin HCl [Cipro] 500 mg PO Q12H 10 Days #20 tab 09/23/19 [Rx] Lisinopril [Zestril] 2.5 mg PO DAILY #30 tab 09/23/19 [Rx] Follow up Appointment(s)/Referral(s): Orlin Laguna MD [Primary Care Provider] - 3 Days (office closed at time of discharge. Please call to make appointment) [facility], [NON-STAFF] - As Needed Patient Instructions/Handouts: Pneumonia (DC) Discharge Disposition: HOME WITH HOME HEALTH SERVICES
--- NOTE | 2019-09-23 16:42 | PN ---
PROGRESS NOTE DATE OF SERVICE: 09/23/2019 REASON FOR FOLLOWUP: Right lower extremity wound and cellulitis. The patient is currently afebrile. The patient is breathing comfortably. Denies having any chest pain. No shortness of breath or cough. No nausea. No abdominal pain or pain to the right leg wound area. PHYSICAL EXAMINATION: Blood pressure 101/68 with a pulse of 104, temperature 98.1, he is 95% on room air. General description is an elderly male lying in bed in no distress. RESPIRATORY SYSTEM: Unlabored breathing, clear to auscultation anteriorly. HEART S1, S2. Regular rate and rhythm. ABDOMEN: Soft, no tenderness. Right lower extremity wounds with no surrounding redness. No obvious drainage on the dressing. LABS: Hemoglobin is 10.3, white count 6.1, BUN of 20, creatinine 1.19. DIAGNOSTIC IMPRESSION AND PLAN: Patient with right leg multiple wounds with concern for possible cellulitis. Culture positive for Staph aureus and Serratia. Clinical suspicion low for underlying deep infection. Recommending finish course of oral Keflex and Cipro for about 10 days. Local care as ordered. Plan of care was discussed with the admitting physician. MMODL / IJN: [id number] /
--- NOTE | 2019-09-25 04:02 | CDI ---
Documentation Clarification Form Date: 09/25/2019 From: Fran Arambula Phone: If you have a question about this query, please contact Tangela Avila, [employer] Operator at [phone] between 8am and 5pm. Admit Date: 09/20/2019 Discharge Date: 09/23/2019 Patient Name: Ajay Lujan Visit Number: [id number] ATTENTION: The Clinical Documentation Specialists (CDI) and [facility] Coding Staff appreciate your assistance in clarifying documentation. Please respond to the clarification below the line at the bottom and electronically sign. The CDI & [facility] Coding staff will review the response and follow-up if needed. Please note: Queries are made part of the Legal Health Record. If you have any questions, please contact the author of this message via ITS. Dear Allan Han., Atrial Fibrillation is documented in 09/20 progress note "History of atrial fibrillation". History/Risk Factors: CHF, HTN, GERALDINE, Atrial fibrillation. EKG/telemetry:EKG shows normal sinus rhythm at 92 bpm CA interval 176 QRS is 146 QT interval 392 QTC is 484 per patient's EKG shows some Q waves in 3 and aVF as well as some ST segment depression in V5 and V6 and T-wave inversions in 1 and aVL and V5 and V6. Treatment: Clopidogrel Bisulfate [Plavix] , Aspirin. In your professional opinion, can you please clarify the type of Atrial Fibrillation, if known? Chronic/Permanent Paroxysmal Persistent Other, please specify Unable to determine Paroxysmal MTDD
[2019-09-25 07:26] VITALS: BP 101/68; PULSE 114; RESP 16
== END 2019-09-23 16:13 | disposition home health service (06) | DRG 292 ==
LOC: SUPCPDRO 09:27 → EC 09:27 → 4SSUR 13:01
PROVIDERS: ADMIT Hospitalist; ATTEND Hospitalist
DX: I11.0 Hypertensive heart disease with heart failure (principal); N17.9 Acute kidney failure, unspecified; J44.1 Chronic obstructive pulmonary disease with (acute) exacerbation; L03.115 Cellulitis of right lower limb; T81.49XA Infection following a procedure, other surgical site, initial encounter; L97.912 Non-pressure chronic ulcer of unspecified part of right lower leg with fat layer exposed; L97.119 Non-pressure chronic ulcer of right thigh with unspecified severity; I50.43 Acute on chronic combined systolic (congestive) and diastolic (congestive) heart failure; I27.20 Pulmonary hypertension, unspecified; I25.10 Atherosclerotic heart disease of native coronary artery without angina pectoris; Z96.641 Presence of right artificial hip joint; I48.91 Unspecified atrial fibrillation; Z96.651 Presence of right artificial knee joint; I48.0 Paroxysmal atrial fibrillation; E78.00 Pure hypercholesterolemia, unspecified; E78.5 Hyperlipidemia, unspecified; D63.8 Anemia in other chronic diseases classified elsewhere; I71.4 Abdominal aortic aneurysm, without rupture; I73.9 Peripheral vascular disease, unspecified; I08.1 Rheumatic disorders of both mitral and tricuspid valves; Z20.828 Contact with and (suspected) exposure to other viral communicable diseases; Z82.49 Family history of ischemic heart disease and other diseases of the circulatory system; Z79.02 Long term (current) use of antithrombotics/antiplatelets; Z79.899 Other long term (current) drug therapy; Z79.82 Long term (current) use of aspirin; Z86.73 Personal history of transient ischemic attack (TIA), and cerebral infarction without residual deficits; Z86.711 Personal history of pulmonary embolism; Z95.1 Presence of aortocoronary bypass graft; Z87.891 Personal history of nicotine dependence; Z95.2 Presence of prosthetic heart valve; I25.2 Old myocardial infarction
CPT/HCPCS: 36415; 71045; 71046; 80048; 80053; 83605; 83735; 83880; 84484; 85025; 85610; 85652; 85730; 86140; 87070; 87077; 87186; 87205; 93005; 94640; 96365; 96367; 99285

== ENCOUNTER 2019-11-28 19:33 | Emergency (ER) | payer MEDICARE, OTHER ==
[2019-11-28] MEDS ORDERED: BACITRACIN OINT 1 EACH PACKET TOPICAL ONE (19:49)
[2019-11-28] MEDS ORDERED: SILVER NITRATE APPLICATOR 1 EACH STICK..EA. TOPICAL STA (19:49)
[2019-11-28] MEDS ORDERED: LIDOCAINE/EPINEPHR/TETRACAINE 5 ML BOTTLE TOPICAL ONE (19:49)
[2019-11-28] MEDS ORDERED: OXYMETAZOLINE 0.05% NASL SPRAY 1 SPRAY BOTTLE NASAL STA (19:49)
--- NOTE | 2019-11-28 20:14 | ED ---
ENT HPI - General Chief complaint: ENT Stated complaint: Bloody Nose Time Seen by Provider: 11/28/19 19:45 Source: patient, RN notes reviewed, old records reviewed Mode of arrival: wheelchair Limitations: no limitations - History of Present Illness Initial comments: Patient's a 69-year-old male who presents the emergency department today for evaluation with chief complaint of nosebleed from the right ear. Patient reports that is been going on for 3 hours. Patient states he is on blood thinners. Patient does take a daily aspirin. He states that the nosebleed started after blowing his nose hard. He was a medics breath and we did get the bleeding to stop. However when he returned went to the car the nosebleed reoccurred and he decided come to the ER for reevaluation. - Related Data Home Medications Medication Instructions Recorded Confirmed Albuterol Sulfate [Albuterol 2 puff PO RT-Q6H PRN 09/20/19 09/20/19 Sulfate Hfa] Aspirin EC [Ecotrin Low Dose] 81 mg PO DAILY 09/20/19 09/20/19 Bumetanide 2 mg PO BID 09/20/19 09/20/19 Clopidogrel Bisulfate [Plavix] 75 mg PO DAILY 09/20/19 09/20/19 Fluticasone/Umeclidin/Vilanter 1 puff INHALATION RT-DAILY 09/20/19 09/20/19 [Trelesapna Ellipta 100-62.5-25] Metoprolol Succinate [Toprol XL] 50 mg PO DAILY 09/20/19 09/20/19 Nicotine [Nicoderm Cq] 1 patch TRANSDERM DAILY 09/20/19 09/20/19 Spironolactone 25 mg PO DAILY 09/20/19 09/20/19 Previous Rx's Medication Instructions Recorded Cephalexin [Keflex] 500 mg PO Q8HR 10 Days #30 cap 09/23/19 Ciprofloxacin HCl [Cipro] 500 mg PO Q12H 10 Days #20 tab 09/23/19 lisinopriL [Zestril] 2.5 mg PO DAILY #30 tab 09/23/19 Amoxic-Pot Clav 875-125Mg 1 tab PO Q12HR #10 tablet 11/28/19 [Augmentin 875-125] Allergies Allergy/AdvReac Type Severity Reaction Status Date / Time No Known Allergies Allergy Verified 11/28/19 19:39 Review of Systems ROS Statement: Those systems with pertinent positive or pertinent negative responses have been documented in the HPI. ROS Other: All systems not noted in ROS Statement are negative. Past Medical History Past Medical History: Atrial Fibrillation, Coronary Artery Disease (CAD), CVA/TIA, Hyperlipidemia, Hypertension Additional Past Medical History / Comment(s): heart disease, angina History of Any Multi-Drug Resistant Organisms: None Reported Past Surgical History: Joint Replacement, Orthopedic Surgery Additional Past Surgical History / Comment(s): right knee, right hip replacements Past Anesthesia/Blood Transfusion Reactions: No Reported Reaction Past Psychological History: No Psychological Hx Reported Smoking Status: Former smoker Past Alcohol Use History: None Reported Past Drug Use History: None Reported - Past Family History Father Family Medical History: Coronary Artery Disease (CAD) Mother Family Medical History: Myocardial Infarction (PR) General Exam - General Exam Comments Initial Comments: 69-year-old male. Alert and oriented. No distress. Limitations: no limitations General appearance: alert, in no apparent distress Head exam: Present: atraumatic, normocephalic, normal inspection Eye exam: Present: normal appearance, PERRL, EOMI. Absent: scleral icterus, conjunctival injection, periorbital swelling ENT exam: Present: normal oropharynx, mucous membranes moist, other (Patient has evidence of sepsis from the right nare. ). Absent: normal exam Neck exam: Present: normal inspection. Absent: tenderness, meningismus, lymphadenopathy Respiratory exam: Present: normal lung sounds bilaterally. Absent: respiratory distress, wheezes, rales, rhonchi, stridor Cardiovascular Exam: Present: regular rate, normal rhythm, normal heart sounds. Absent: systolic murmur, diastolic murmur, rubs, gallop, clicks GI/Abdominal exam: Present: soft, normal bowel sounds. Absent: distended, tenderness, guarding, rebound, rigid Extremities exam: Present: normal inspection, full ROM, normal capillary refill. Absent: tenderness, pedal edema, joint swelling, calf tenderness Back exam: Present: normal inspection Neurological exam: Present: alert, oriented X3, CN II-XII intact Psychiatric exam: Present: normal affect, normal mood Skin exam: Present: warm, dry, intact, normal color. Absent: rash Course Vital Signs 09/12/20 09/12/20 19:37 21:03 Temperature 98.5 F 98.2 F Pulse Rate 75 72 Respiratory 20 16 Rate Blood Pressure 115/69 118/78 O2 Sat by Pulse 100 98 Oximetry Medical Decision Making - Medical Decision Making 69 year old male with R nare anterior epistaxis. Pt was given afrin, lidocaine with epinephrine and nasal clamp applied. Pt still has bleeding. Patient had nasal merocel placed and Pt tolerated procedure well. Discussed pt should follow up with ENT for removal in 2 days. Pt will be started on augmentin for infection prevention with nerocel packing. Discussed Pt to follow up with ENT. Disposition Clinical Impression: Bleeding nose Disposition: HOME SELF-CARE Condition: Good Instructions (If sedation given, give patient instructions): Nosebleed (ED) Additional Instructions: Patient advised to follow-up with ENT in 2 days to have it removed the packing. Return if packing soaks through before hand. No blowing nose or strenous activity. Prescriptions: Amoxic-Pot Clav 875-125Mg [Augmentin 875-125] 1 tab PO Q12HR #10 tablet Is patient prescribed a controlled substance at d/c from ED?: No Referrals: Orlin Laguna MD [Primary Care Provider] - 1-2 days Juan C Greene DO [Doctor of Osteopathic Medicine] - 1-2 days Time of Disposition: 20:57
[2019-11-28 21:05] VITALS: BP 118/78; PULSE 72; RESP 16; TEMP 98.2
== END 2019-11-28 21:03 | disposition home or self-care (01) ==
LOC: EC 19:33
DX: R04.0 Epistaxis (principal); I11.9 Hypertensive heart disease without heart failure; I25.119 Atherosclerotic heart disease of native coronary artery with unspecified angina pectoris; I48.91 Unspecified atrial fibrillation; Z79.899 Other long term (current) drug therapy; Z79.51 Long term (current) use of inhaled steroids; Z79.02 Long term (current) use of antithrombotics/antiplatelets; Z79.82 Long term (current) use of aspirin; Z87.891 Personal history of nicotine dependence; Z96.641 Presence of right artificial hip joint; Z96.651 Presence of right artificial knee joint; Z86.73 Personal history of transient ischemic attack (TIA), and cerebral infarction without residual deficits
CPT/HCPCS: 99283

== ENCOUNTER 2019-11-30 10:39 | Emergency (ER) | payer MEDICARE, OTHER ==
[2019-11-30 10:49] VITALS: PULSE 80; RESP 18
--- NOTE | 2019-11-30 12:03 | ED ---
ENT HPI - General Chief complaint: ENT Stated complaint: Recheck Nose Bleed Time Seen by Provider: 11/30/19 10:49 Source: patient, RN notes reviewed, old records reviewed Mode of arrival: ambulatory Limitations: no limitations - History of Present Illness Initial comments: 69-year-old male presents return today for a check for nosebleed. He had nasal packing done on Saturday by myself. Patient reports that he was at the ER to have wound care and felt a to come to ED to have his nasal packing removed. He reports no significant bleeding from this. Denies any drainage from back of the throat. - Related Data Home Medications Medication Instructions Recorded Confirmed Albuterol Sulfate [Albuterol 2 puff PO RT-Q6H PRN 09/20/19 11/30/19 Sulfate Hfa] Aspirin EC [Ecotrin Low Dose] 81 mg PO DAILY 09/20/19 11/30/19 Bumetanide 2 mg PO DAILY 09/20/19 11/30/19 Clopidogrel Bisulfate [Plavix] 75 mg PO DAILY 09/20/19 11/30/19 Metoprolol Succinate [Toprol XL] 50 mg PO DAILY 09/20/19 11/30/19 Spironolactone 25 mg PO DAILY 09/20/19 11/30/19 lisinopriL [Zestril] 5 mg PO DAILY 11/30/19 11/30/19 Previous Rx's Medication Instructions Recorded Amoxic-Pot Clav 875-125Mg 1 tab PO Q12HR #10 tablet 11/28/19 [Augmentin 875-125] Allergies Allergy/AdvReac Type Severity Reaction Status Date / Time No Known Allergies Allergy Verified 11/30/19 11:54 Review of Systems ROS Statement: Those systems with pertinent positive or pertinent negative responses have been documented in the HPI. ROS Other: All systems not noted in ROS Statement are negative. Past Medical History Past Medical History: Atrial Fibrillation, Coronary Artery Disease (CAD), CVA/TIA, Hyperlipidemia, Hypertension Additional Past Medical History / Comment(s): heart disease, angina History of Any Multi-Drug Resistant Organisms: None Reported Past Surgical History: Joint Replacement, Orthopedic Surgery Additional Past Surgical History / Comment(s): right knee, right hip replacements Past Anesthesia/Blood Transfusion Reactions: No Reported Reaction Past Psychological History: No Psychological Hx Reported Smoking Status: Former smoker Past Alcohol Use History: None Reported Past Drug Use History: None Reported - Past Family History Father Family Medical History: Coronary Artery Disease (CAD) Mother Family Medical History: Myocardial Infarction (OR) General Exam - General Exam Comments Initial Comments: 69-year-old male. Alert and oriented. No distress. Limitations: no limitations Head exam: Present: atraumatic Eye exam: Present: normal appearance, PERRL, EOMI. Absent: scleral icterus, conjunctival injection, periorbital swelling ENT exam: Present: normal exam, mucous membranes moist, other (Patient has nasal packing in the right knee and her period and not saturated with blood.) Neck exam: Present: normal inspection. Absent: tenderness, meningismus, lymphadenopathy Respiratory exam: Present: normal lung sounds bilaterally. Absent: respiratory distress, wheezes, rales, rhonchi, stridor Cardiovascular Exam: Present: regular rate, normal rhythm, normal heart sounds. Absent: systolic murmur, diastolic murmur, rubs, gallop, clicks GI/Abdominal exam: Present: soft, normal bowel sounds. Absent: distended, tenderness, guarding, rebound, rigid Extremities exam: Present: normal inspection, full ROM, normal capillary refill. Absent: tenderness, pedal edema, joint swelling, calf tenderness Back exam: Present: normal inspection Neurological exam: Present: alert, oriented X3, CN II-XII intact Course Vital Signs 11/30/19 10:46 Temperature 97.8 F Pulse Rate 80 Respiratory 18 Rate Blood Pressure 94/60 O2 Sat by Pulse 99 Oximetry Medical Decision Making - Medical Decision Making 69-year-old male presents the ER today for nasal packing in the right near. Patient is to have this removed his been in for 2 days. Handle small amount of blood on this. He is on Plavix. Patient's nasal packing was removed he tolerated the procedure well. Patient was monitored in ER and no further bleeding. I discussed Patient is follow-up with ENT. Discussed discharge home with nasal clamp he has any further bleeding and to get humidifiers. Discussed return parameters. Disposition Clinical Impression: Encounter for removal of nasal packing Disposition: HOME SELF-CARE Condition: Good Instructions (If sedation given, give patient instructions): Nosebleed (ED) Additional Instructions: If nosebleed recurs apply nasal clamp for 30 minutes. Patient should use the nasal saline spray and Vaseline over the naris. Return to the ER if any alarming signs or symptoms occur. Is patient prescribed a controlled substance at d/c from ED?: No Referrals: Orlin Laguna MD [Primary Care Provider] - 1-2 days Time of Disposition: 12:03
[2019-11-30 12:16] VITALS: BP 101/55; TEMP 97.4
== END 2019-11-30 12:16 | disposition home or self-care (01) ==
LOC: EC 10:39
DX: Z48.00 Encounter for change or removal of nonsurgical wound dressing (principal); Z79.82 Long term (current) use of aspirin; Z79.02 Long term (current) use of antithrombotics/antiplatelets; Z79.899 Other long term (current) drug therapy
CPT/HCPCS: 99282

== ENCOUNTER 2020-01-19 11:49 | Inpatient (IN) | payer MEDICARE, OTHER ==
[2020-01-19] MEDS ORDERED: EPINEPHrine 10 ML SYRINGE (0.1 MG/ML) ONE (11:55)
[2020-01-19] MEDS ORDERED: SODIUM BICARB 8.4% 50 ML SYR (1 MEQ/ML) ONE (11:55)
[2020-01-19] MEDS ORDERED: NOREPINEPHRINE 4 MG in SODIUM CHLORIDE 0.9% 250 ML IV ONE (12:09)
[2020-01-19 12:28] LABS: ABG Base Excess -24.3 mmol/L; ABG Oxygen Saturation 80.2 % (94-97); ABG PCO2 66 mmHg (35-45); ABG PO2 77 mmHg (83-108); ABG TCO2 12 mmol/L (19-24); Allen Test Performed? Yes
[2020-01-19 12:33] LABS: ABG HCO3 10 mmol/L (21-25)
--- NOTE | 2020-01-19 12:48 | XR ---
EXAMINATION TYPE: XR chest 1V portable DATE OF EXAM: 01/19/2020 Comparison: 09/21/2019 Clinical History: 69-year-old male Cardiac arrest Findings: ET tube tip is low just at the right mainstem bronchus origin. Pullback 2 cm. Heart mildly enlarged. NG tube is short. It should be advanced 10 cm so that the side hole. Bilateral patchy and interstitia l opacities. No pleural effusion. Impression: 1. Scattered interstitial pulmonary edema. 2. ET tube is low just at the origin of the right mainstem bronchus. Pull back 2 cm and reassess at f ollow-up. 3. NG tube is short. It can be advanced 10 cm so that the sidehole enters the stomach.
[2020-01-19] MEDS ORDERED: SODIUM CHLORIDE 0.9% 1,000 ML IV ONE ×2 (12:49)
[2020-01-19 13:14] LABS: Albumin 2.6 g/dL (3.5-5.0); Calcium 8.3 mg/dL (8.4-10.2); Magnesium 2.8 mg/dL (1.6-2.3); Total Bilirubin 0.4 mg/dL (0.2-1.3); Total Protein 5.2 g/dL (6.3-8.2)
[2020-01-19 13:15] LABS: Potassium 4.2 mmol/L (3.5-5.1)
[2020-01-19 13:25] LABS: INR 1.1 (<1.2); Partial Thromboplastin Time 36.4 sec (22.0-30.0); Prothrombin Time 11.1 sec (9.0-12.0)
--- NOTE | 2020-01-19 13:39 | CT ---
EXAMINATION TYPE: CT brain wo con DATE OF EXAM: 01/19/2020 COMPARISON: CT brain 06/13/2013 HISTORY: Unresponsive, altered mental status CT DLP: 1261.4 mGycm Automated exposure control for dose reduction was used. Helical imaging through the brain FINDINGS: There is artifact over the exam. There are areas of effaced sulci, poor becerril-white differen tiation noted in the parietal regions bilaterally, mildly asymmetric right greater than left NG tube is noted incidentally. Cortical atrophy is again seen. There are cerebral vascular calcificat ions. There is no hemorrhage or hydrocephalus. Periventricular white matter shows patchy low attenuat ion. Prior infarct is noted inferior right cerebellar hemisphere, there is volume loss. Possible lacu justo infarcts basal ganglia on the right, external capsule on the right, focal low attenuation noted. IMPRESSION: FINDINGS CONSISTENT WITH CHRONIC SMALL VESSEL ISCHEMIC CHANGES. EFFACEMENT OF THE SULCI MAY BE DUE TO UNDERLYING ISCHEMIC CHANGE ALTHOUGH THERE IS ARTIFACT ON THE EXAM. CONSIDER BRAIN MRI.
[2020-01-19 13:46] LABS: Anisocytosis Slight; HCT 33.1 % (39.0-53.0); Hypochromasia Marked; MCH 29.1 pg (25.0-35.0); MCHC 29.9 g/dL (31.0-37.0); Macrocytosis Slight; Mean Platelet Volume 7.7; Platelet Count 214 k/uL (150-450); RDW 17.1 % (11.5-15.5); WBC 13.2 k/uL (3.8-10.6)
[2020-01-19 13:49] LABS: HGB 9.9 gm/dL (13.0-17.5); MCV 97.2 fL (80.0-100.0)
--- NOTE | 2020-01-19 14:13 | ED ---
General Adult HPI - General Chief complaint: Cardiac Arrest/CPR Stated complaint: Cardiac Arrest Time Seen by Provider: 01/19/20 11:49 Source: patient, EMS, RN notes reviewed, old records reviewed Mode of arrival: EMS Limitations: altered mental status - History of Present Illness Initial comments: This is a 69-year-old male who presents emergency Department with a known cardiac history. Patient was with his sister when he went unresponsive she started CPR when the paramedics arrived he was in V. fib and shocked him and started amiodarone patient coded multiple times for that in route they intubated the patient in route as well. When patient arrived he quickly lost his pulses in CPR and he says protocol was followed here. Patient coded multiple times in our emergency department. No family members are came with the patient said no further history was able to be obtained. - Related Data Home Medications Medication Instructions Recorded Confirmed Albuterol Sulfate [Albuterol 2 puff PO RT-Q6H PRN 09/20/19 01/19/20 Sulfate Hfa] Aspirin EC [Ecotrin Low Dose] 81 mg PO DAILY 09/20/19 01/19/20 Bumetanide 2 mg PO DAILY 09/20/19 01/19/20 Clopidogrel Bisulfate [Plavix] 75 mg PO DAILY 09/20/19 01/19/20 Metoprolol Succinate [Toprol XL] 50 mg PO DAILY 09/20/19 01/19/20 Spironolactone 25 mg PO DAILY 09/20/19 01/19/20 lisinopriL [Zestril] 5 mg PO DAILY 11/30/19 01/19/20 Allergies Allergy/AdvReac Type Severity Reaction Status Date / Time No Known Allergies Allergy Verified 01/19/20 12:51 Review of Systems ROS Statement: Those systems with pertinent positive or pertinent negative responses have been documented in the HPI. ROS Other: All systems not noted in ROS Statement are negative. Past Medical History Past Medical History: Atrial Fibrillation, Coronary Artery Disease (CAD), CVA/TIA, Hyperlipidemia, Hypertension Additional Past Medical History / Comment(s): heart disease, angina History of Any Multi-Drug Resistant Organisms: None Reported Past Surgical History: Joint Replacement, Orthopedic Surgery Additional Past Surgical History / Comment(s): right knee, right hip replacements Past Anesthesia/Blood Transfusion Reactions: No Reported Reaction Past Psychological History: No Psychological Hx Reported Smoking Status: Former smoker Past Alcohol Use History: Unable to Obtain Past Drug Use History: Unable to Obtain - Past Family History Father Family Medical History: Coronary Artery Disease (CAD) Mother Family Medical History: Myocardial Infarction ([place]) General Exam - General Exam Comments Initial Comments: GENERAL: Patient is well-developed and well-nourished. Patient was unresponsive. EYES: The sclera were anicteric and conjunctiva were pink and moist. Extraocular movements were intact and pupils were equal round and reactive to light. Ey elids were unremarkable. PULMONARY: Patient has breath sounds bilaterally slightly increased on the right compared to left CARDIOVASCULAR: There is a regular rate and rhythm without any murmurs gallops or rubs. ABDOMEN: Abdomen is soft. SKIN: Skin is clear with no lesions or rashes and otherwise unremarkable. NEUROLOGIC: Patient is unresponsive MUSCULOSKELETAL: Normal extremities with adequate strength and full range of motion. LYMPHATICS: No significant lymphadenopathy is noted PSYCHIATRIC: Unable to obtained Limitations: altered mental status Course Vital Signs 01/19/20 01/19/20 01/19/20 11:55 12:00 12:15 Temperature Pulse Rate 0 L 51 L 71 Respiratory 0 L 16 16 Rate Blood Pressure 85/66 106/66 O2 Sat by Pulse 0 L 85 L 77 L Oximetry 01/19/20 01/19/20 01/19/20 12:25 12:35 12:39 Temperature Pulse Rate 70 53 L 62 Respiratory 16 20 20 Rate Blood Pressure 100/58 72/59 72/49 O2 Sat by Pulse 91 L 90 L 91 L Oximetry 01/19/20 01/19/20 01/19/20 12:47 12:53 12:58 Temperature Pulse Rate 68 54 L 64 Respiratory 20 20 20 Rate Blood Pressure 70/48 87/48 91/49 O2 Sat by Pulse 95 96 97 Oximetry 01/19/20 01/19/20 01/19/20 13:04 13:10 13:30 Temperature Pulse Rate 62 64 76 Respiratory 20 20 20 Rate Blood Pressure 99/49 104/48 108/51 O2 Sat by Pulse 99 99 96 Oximetry 01/19/20 01/19/20 01/19/20 13:35 14:01 14:13 Temperature 98 F Pulse Rate 77 93 96 Respiratory 20 20 20 Rate Blood Pressure 108/60 112/65 112/58 O2 Sat by Pulse 98 96 91 L Oximetry 01/19/20 14:31 Temperature Pulse Rate 101 H Respiratory 20 Rate Blood Pressure 121/59 O2 Sat by Pulse 88 L Oximetry Procedures - Central Line Placement Right IJ Consent Obtained: emergent situation Prep: mask, gown, gloves Central Line Prep: Chlorhexidine scrub Local Anesthesia Used: Lidocaine 1% Ultrasound Used for Placement: Yes Central Line Lumen Inserted: triple Central Line Position: good blood return, all ports aspirated, flushed, capped, sutured in place with nylon Dressing Applied: Tegaderm Post Procedure X-Ray: tip of catheter in good position Complications: none Medical Decision Making - Medical Decision Making EKG showed sinus rhythm at 87 bpm MS interval is 262 QRS is 140 QT interval 420 QTC is 505. Patient's EKG showed what appeared to be ST segment elevation in leads [address] segment depression in leads 1 and aVL. Repeat EKG was done and showed QRS with a rate of 64 QRS is 126 QT intervals 408 QTC is 420. There was no significant ST segment elevation noted. Chest x-ray showed NG tube not fully in the stomach. ET tube needs to be pulled back about 2 cm. Both were done. CT of the brain showed some effacement of the sulci. Dr. Alonso came down and saw the patient in the emergency department. I spoke with Dr. Jones agreed to admit the patient admitted the patient to ICU. Spoke with Dr. Rehman - Lab Data Result diagrams: 01/19/20 12:30 01/19/20 12:30 Lab Results 01/19/20 01/19/20 01/19/20 Range/Units 12:26 12:30 12:30 WBC 13.2 H (3.8-10.6) k/uL RBC 3.40 L (4.30-5.90) m/uL Hgb 9.9 L D (13.0-17.5) gm/dL Hct 33.1 L (39.0-53.0) % MCV 97.2 D (80.0-100.0) fL MCH 29.1 (25.0-35.0) pg MCHC 29.9 L (31.0-37.0) g/dL RDW 17.1 H (11.5-15.5) % Plt Count 214 (150-450) k/uL Neutrophils % Not Reportable Neutrophils % (Manual) 32 % Band Neuts % (Manual) 11 % Lymphocytes % Not Reportable Lymphocytes % (Manual) 42 % Monocytes % Not Reportable Monocytes % (Manual) 5 % Eosinophils % Not Reportable Eosinophils % (Manual) 3 % Basophils % Not Reportable Metamyelocytes % 3 % Myelocytes % 5 % Promyelocytes % 1 % Neutrophils # Not Reportable Neutrophils # (Manual) 5.60 (1.3-7.7) k/uL Lymphocytes # Not Reportable Lymphocytes # (Manual) 5.54 H (1.0-4.8) k/uL Monocytes # Not Reportable Monocytes # (Manual) 0.66 (0-1.0) k/uL Eosinophils # Not Reportable Eosinophils # (Manual) 0.40 (0-0.7) k/uL Basophils # Not Reportable Metamyelocytes # (Man) 0.40 H (0) k/uL Myelocytes # (Manual) 0.66 H (0) k/uL Promyelocytes # (Man) 0.13 H (0) k/uL Nucleated RBCs 0 (0-0) /100 WBC Manual Slide Review Performed Toxic Granulation Present Hypochromasia Marked Poikilocytosis (manual Present Anisocytosis Slight Macrocytosis Slight PT 11.1 (9.0-12.0) sec INR 1.1 (<1.2) APTT 36.4 H (22.0-30.0) sec Sample Site Left Radial ABG pH 6.80 L* (7.35-7.45) ABG pCO2 66 H (35-45) mmHg ABG pO2 77 L (83-108) mmHg ABG HCO3 10 L* (21-25) mmol/L ABG Total CO2 12 L (19-24) mmol/L ABG O2 Saturation 80.2 L (94-97) % ABG Base Excess -24.3 mmol/L Marco A Test Yes FiO2 100 % Sodium (137-145) mmol/L Potassium (3.5-5.1) mmol/L Chloride (98-107) mmol/L Carbon Dioxide (22-30) mmol/L Anion Gap mmol/L BUN (9-20) mg/dL Creatinine (0.66-1.25) mg/dL Est GFR (CKD-EPI)AfAm (>60 ml/min/1.73 sqM) Est GFR (CKD-EPI)NonAf (>60 ml/min/1.73 sqM) Glucose (74-99) mg/dL Calcium (8.4-10.2) mg/dL Magnesium (1.6-2.3) mg/dL Total Bilirubin (0.2-1.3) mg/dL AST (17-59) U/L ALT (4-49) U/L Alkaline Phosphatase (38-126) U/L Troponin I (0.000-0.034) ng/mL Total Protein (6.3-8.2) g/dL Albumin (3.5-5.0) g/dL 01/19/20 01/19/20 Range/Units 12:30 12:30 WBC (3.8-10.6) k/uL RBC (4.30-5.90) m/uL Hgb (13.0-17.5) gm/dL Hct (39.0-53.0) % MCV (80.0-100.0) fL MCH (25.0-35.0) pg MCHC (31.0-37.0) g/dL RDW (11.5-15.5) % Plt Count (150-450) k/uL Neutrophils % Neutrophils % (Manual) % Band Neuts % (Manual) % Lymphocytes % Lymphocytes % (Manual) % Monocytes % Monocytes % (Manual) % Eosinophils % Eosinophils % (Manual) % Basophils % Metamyelocytes % % Myelocytes % % Promyelocytes % % Neutrophils # Neutrophils # (Manual) (1.3-7.7) k/uL Lymphocytes # Lymphocytes # (Manual) (1.0-4.8) k/uL Monocytes # Monocytes # (Manual) (0-1.0) k/uL Eosinophils # Eosinophils # (Manual) (0-0.7) k/uL Basophils # Metamyelocytes # (Man) (0) k/uL Myelocytes # (Manual) (0) k/uL Promyelocytes # (Man) (0) k/uL Nucleated RBCs (0-0) /100 WBC Manual Slide Review Toxic Granulation Hypochromasia Poikilocytosis (manual Anisocytosis Macrocytosis PT (9.0-12.0) sec INR (<1.2) APTT (22.0-30.0) sec Sample Site ABG pH (7.35-7.45) ABG pCO2 (35-45) mmHg ABG pO2 (83-108) mmHg ABG HCO3 (21-25) mmol/L ABG Total CO2 (19-24) mmol/L ABG O2 Saturation (94-97) % ABG Base Excess mmol/L Marco A Test FiO2 % Sodium 135 L (137-145) mmol/L Potassium 4.2 (3.5-5.1) mmol/L Chloride 104 (98-107) mmol/L Carbon Dioxide 13 L (22-30) mmol/L Anion Gap 18 mmol/L BUN 26 H (9-20) mg/dL Creatinine 1.53 H (0.66-1.25) mg/dL Est GFR (CKD-EPI)AfAm 53 (>60 ml/min/1.73 sqM) Est GFR (CKD-EPI)NonAf 46 (>60 ml/min/1.73 sqM) Glucose 356 H (74-99) mg/dL Calcium 8.3 L (8.4-10.2) mg/dL Magnesium 2.8 H (1.6-2.3) mg/dL Total Bilirubin 0.4 (0.2-1.3) mg/dL AST 174 H (17-59) U/L ALT 114 H (4-49) U/L Alkaline Phosphatase 61 (38-126) U/L Troponin I 0.164 H* (0.000-0.034) ng/mL Total Protein 5.2 L (6.3-8.2) g/dL Albumin 2.6 L (3.5-5.0) g/dL Critical Care Time Critical Care Time: Yes Total Critical Care Time: 45 Disposition Clinical Impression: Cardiac arrest with ventricular fibrillation Disposition: ADMITTED IP TO THIS HOSP Referrals: Orlin Laguna MD [Primary Care Provider] - 1-2 days Time of Disposition: 14:13
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
[2020-01-19 14:18] VITALS: TEMP 98
[2020-01-19 14:45] LABS: Band Neutrophils % 11 %; Lymphocytes # (M) 5.54 k/uL (1.0-4.8); Metamyelocytes % 3 %; Monocytes # (M) 0.66 k/uL (0-1.0); Myelocytes # (M) 0.66 k/uL (0); Myelocytes % 5 %; Neutrophils % (M) 32 %; Nucleated Red Blood Cells 0 /100 WBC (0-0); Promyelocytes # (M) 0.13 k/uL (0); Promyelocytes % 1 %; Total Cells Counted 200
[2020-01-19 14:46] LABS: Poikilocytosis (M) Present; Toxic Granulation Present
[2020-01-19] MEDS ORDERED: LORazepam 2 MG/ML INJ IV STA ×2 (14:50→17:44)
[2020-01-19] MEDS ORDERED: NALOXONE 0.4 MG/ML 1 ML VIAL IV PRN (15:21)
--- NOTE | 2020-01-19 15:52 | XR ---
EXAMINATION TYPE: XR chest 1V portable DATE OF EXAM: 01/19/2020 Comparison: Earlier today Clinical History: 69-year-old male Line placement Findings: ET tube has been retracted and is now satisfactory. Distal aspect of the NG tube is not well seen and should be reassessed at follow-up. The tube courses below the diaphragm. Right IJ CVC tip is placed in the interval. The tip is within the right atrium. Heart remains mildly enlarged. Diffuse interstit ial densities persist but with slight improvement on the right. Increasing retrocardiac opacity. Impression: 1. New right IJ CVC with tip in the right atrium. 2. Satisfactory ET tube. Distal aspect of the NG tube is not well-seen but it seems to correspond bel ow the diaphragm now. Attention on follow-up. 3. New retrocardiac atelectasis or consolidation. 4. Diffuse interstitial opacities persist but show improvement on the right.
[2020-01-19 16:27] LABS: ABG Base Excess -13.6 mmol/L; ABG HCO3 17 mmol/L (21-25); ABG PCO2 57 mmHg (35-45); ABG PO2 66 mmHg (83-108); ABG TCO2 18 mmol/L (19-24); Allen Test Performed? Yes
[2020-01-19] MEDS ORDERED: FUROSEMIDE 10 MG/ML 4 ML VIAL IV STA (16:28)
[2020-01-19 16:30] LABS: ABG PH 7.07 (7.35-7.45)
[2020-01-19] MEDS ORDERED: SODIUM BICARB 8.4% 50 ML SYR (1 MEQ/ML) IV STA ×2 (16:31→16:41)
[2020-01-19 16:36] LABS: Glucose,Whole Blood 308 mg/dL (75-99)
[2020-01-19] MEDS ORDERED: propofoL 100 ML IV ONE (16:44)
[2020-01-19] MEDS ORDERED: DEXTROSE 5% IN WATER 1,000 ML with SODIUM BICARB (1 MEQ/ML) 150 ML IV SCH (17:00)
[2020-01-19 17:18] LABS: Anisocytosis Slight; HCT 30.9 % (39.0-53.0); HGB 9.7 gm/dL (13.0-17.5); MCH 28.9 pg (25.0-35.0); MCHC 31.2 g/dL (31.0-37.0); MCV 92.5 fL (80.0-100.0); Mean Platelet Volume 7.3; Platelet Count 296 k/uL (150-450); RBC 3.35 m/uL (4.30-5.90); RDW 17.7 % (11.5-15.5); WBC 34.6 k/uL (3.8-10.6)
--- NOTE | 2020-01-19 17:21 | XR ---
EXAMINATION TYPE: XR chest 1V DATE OF EXAM: 01/19/2020 COMPARISON: Today HISTORY: Check line placement TECHNIQUE: FINDINGS: There is endotracheal tube 3.5 cm from the blanca. There is nasogastric tube over the gastr ic fundus. There is right jugular catheter with tip in the right atrium. There is coarse pulmonary in terstitial infiltrate. There are chest leads. IMPRESSION: Coarse pulmonary infiltrates and pulmonary fibrosis with improvement in the left upper lo be and unchanged in the remaining lung rebollar compared to exam 2 hours ago. No heart failure.
[2020-01-19 17:40] LABS: Calcium 7.1 mg/dL (8.4-10.2); Magnesium 2.6 mg/dL (1.6-2.3); Phosphorus 5.7 mg/dL (2.5-4.5); Potassium 4.3 mmol/L (3.5-5.1)
[2020-01-19] MEDS ORDERED: CISATRACURIUM 2 MG/ML 5 ML VIAL IV ONE (17:40)
[2020-01-19 17:43] LABS: INR 1.9 (<1.2); Prothrombin Time 18.8 sec (9.0-12.0)
[2020-01-19] MEDS ORDERED: MORPHINE SULFATE 4 MG/ML SYRINGE IVP STA (17:44)
[2020-01-19] MEDS ORDERED: MORPHINE SULFATE (100 MG/2 ML) 100 MG in SODIUM CHLORIDE 0.9% 100 ML IV SCH (17:45)
[2020-01-19] MEDS ORDERED: MORPHINE SULFATE 4 MG/ML SYRINGE ONE (17:46)
--- NOTE | 2020-01-19 18:23 | P.CNPUL ---
History of Present Illness Consult date: 01/19/20 Requesting physician: Devon Jones Reason for consult: other (Cardiac arrest and respiratory failure) Chief complaint: Cardiac arrest History of present illness: This is a 69-year-old white male, known to my service, I have seen this patient back in August of 2019. Patient was admitted at the time with symptoms of congestive heart failure related to severe ischemic cardiomyopathy with ejection fraction of 20-25%, and he was found to have significant severe mitral regurgitation as well as significant coronary artery disease. Patient was seen by cardiology and by thoracic surgery on consultation, and at the time he was supposed to undergo viability study of the myocardium. And if reasonable the patient was supposed to undergo eventually CABG and mitral valve repair. Apparently no further follow-up since that admission. Patient went today with his sister to follow-up, and upon arrival, he walked into the house, and all of a sudden he collapsed down to the floor and became unresponsive. Sister was unable to wake him up. And she started CPR. EMS arrived within 10 minutes, and he was found to be in ventricular fibrillation. Patient was defibrillated. And on the way to the hospital, patient was shocked about 5-8 times. Patient also received shocks for ventricular fibrillation in the ER, he was intubated, he was unresponsive, and he had no pupillary responses. Placed on norepinephrine for hypertension. EKG showed significant ST elevation in aVR with ST depression in the lateral leads chest x-ray showed evidence of pulmonary edema. CT of the brain showed chronic vessel ischemic changes. Shortly after intubation and nasogastric tube placement, patient has noted to have significant bleeding with blood coming out through the nasogastric tube, and bloody bowel mov ements/multiple. Patient arrived to the ICU, hypotensive, unresponsive, and he was agonal in spite of being on mechanical ventilation. Again there was evidence of significant bleeding from the nasogastric tube, and there was also evidence of significant the bloody bowel movements. CODE STATUS has already been changed to DO NOT RESUSCITATE CODE STATUS by family. However as soon as I evaluated the patient, and reviewed his chart, it was very obvious to me that the patient is about to code any time now. The nurse Ana updated the family at his condition, and family agreed to go ahead and proceed with comfort care measures and that is very appropriate at this point in time. Patient will be made comfort care. Initial ABG showed a pO2 of 77 pCO2 of 66 pH of 6.80 follow- up ABG showed a pO2 of 66 pCO2 of 57 pH of 7.07 patient was already on 100% FiO2, PEEP of 14, and he was already given sodium bicarb and recommended bicarb drip prior to changing the CODE STATUS to comfort care measures. INR was noted to be 1.9 although his initial INR on presentation to the ER was 1.1. Platelets were noted to be normal. And hemoglobin was 9.7. Chest x-ray clearly showed evidence of pulmonary edema. Review of Systems ROS unobtainable: due to endotracheal tube Past Medical History Past Medical History: Atrial Fibrillation, Coronary Artery Disease (CAD), CVA/TIA, Hyperlipidemia, Hypertension Additional Past Medical History / Comment(s): heart disease, angina History of Any Multi-Drug Resistant Organisms: None Reported Past Surgical History: Joint Replacement, Orthopedic Surgery Additional Past Surgical History / Comment(s): right knee, right hip replacements Past Anesthesia/Blood Transfusion Reactions: No Reported Reaction Past Psychological History: No Psychological Hx Reported Smoking Status: Former smoker Past Alcohol Use History: Unable to Obtain Past Drug Use History: Unable to Obtain - Past Family History Father Family Medical History: Coronary Artery Disease (CAD) Mother Family Medical History: Myocardial Infarction ([place]) Medications and Allergies Home Medications Medication Instructions Recorded Confirmed Type Albuterol Sulfate [Albuterol 2 puff PO RT-Q6H PRN 09/20/19 01/19/20 History Sulfate Hfa] Aspirin EC [Ecotrin Low Dose] 81 mg PO DAILY 09/20/19 01/19/20 History Bumetanide 2 mg PO DAILY 09/20/19 01/19/20 History Clopidogrel Bisulfate [Plavix] 75 mg PO DAILY 09/20/19 01/19/20 History Metoprolol Succinate [Toprol XL] 50 mg PO DAILY 09/20/19 01/19/20 History Spironolactone 25 mg PO DAILY 09/20/19 01/19/20 History lisinopriL [Zestril] 5 mg PO DAILY 11/30/19 01/19/20 History Allergies Allergy/AdvReac Type Severity Reaction Status Date / Time No Known Allergies Allergy Verified 01/19/20 12:51 Physical Exam Vitals: Vital Signs Temp Pulse Resp BP Pulse Ox 01/19/20 15:18 113 H 20 100/72 90 L 11/03/20 14:31 101 H 20 121/59 88 L 01/19/20 14:13 98 F 96 20 112/58 91 L 01/19/20 14:01 93 20 112/65 96 01/19/20 13:35 77 20 108/60 98 01/19/20 13:30 76 20 108/51 96 01/19/20 13:10 64 20 104/48 99 01/19/20 13:04 62 20 99/49 99 01/19/20 12:58 64 20 91/49 97 01/19/20 12:53 54 L 20 87/48 96 01/19/20 12:47 68 20 70/48 95 01/19/20 12:39 62 20 72/49 91 L 01/19/20 12:35 53 L 20 72/59 90 L 01/19/20 12:25 70 16 100/58 91 L 01/19/20 12:15 71 16 106/66 77 L 01/19/20 12:00 51 L 16 85/66 85 L 01/19/20 11:55 0 L 0 L 0 L Intake and Output 01/19/20 01/19/20 01/19/20 06:59 14:59 22:59 Intake Total 8.268 Balance 8.268 Intake: Intake, IV Titration 8.268 Amount Norepinephrine 4 mg In 8.268 Sodium Chloride 0.9% 250 ml @ 0.05 MCG/KG/MIN 16. 002 mls/hr IV .[id number] ONE Rx#:[id number] Other: Weight 84 kg Physical Exam revealed a 69-year-old white male unresponsive to any stimuli, intubated, mechanically ventilated, noted to be agonal and not synchronous with the ventilator. Head: Endotracheal tube is noted, nasogastric tube with significant amount of blood noted to be draining through the nasogastric tube. And significant amount of blood noted around the mouth and around the endotracheal tube as well as nasogastric tube. HEENT:[Neck is supple.] [No neck masses.] [No thyromegaly.] [No JVD.] Chest: [Crackles and rhonchi noted bilaterally. Symmetrical chest expansion. Cardiac Exam: Irregular irregular rhythm, no S3 gallop, 3/6 systolic murmur thought the precordium.] Abdomen: [Soft, nontender, no megaly, no rebound, no guarding, normal bowel sounds.] Extremities: [No clubbing, trace of bipedal edema, Patient looks slightly mottled and diminished distal pulses bilaterally. Neurological Exam: Patient is unresponsive to any deep painful stimuli. Not on any sedation at this point. Pupils are fixed and pinpoint. Psychiatric: Could not be assessed. Lymphatics: No cervical or supraclavicular lymphadenopathy. Results - Laboratory Findings CBC and BMP: 01/19/20 16:58 01/19/20 16:58 ABG ABG pH 7.07 (7.35-7.45) L* 01/19/20 16:20 ABG pCO2 57 mmHg (35-45) H 01/19/20 16:20 ABG pO2 66 mmHg (83-108) L 01/19/20 16:20 ABG O2 Saturation 88.0 % (94-97) L 01/19/20 16:20 PT/INR, D-dimer PT 18.8 sec (9.0-12.0) H 01/19/20 16:58 INR 1.9 (<1.2) H 01/19/20 16:58 Abnormal lab findings: Abnormal Labs 01/19/20 01/19/20 01/19/20 12:26 12:30 12:30 WBC 13.2 H RBC 3.40 L Hgb 9.9 L D Hct 33.1 L MCHC 29.9 L RDW 17.1 H Lymphocytes # (Manual) 5.54 H Metamyelocytes # (Man) 0.40 H Myelocytes # (Manual) 0.66 H Promyelocytes # (Man) 0.13 H PT INR APTT 36.4 H ABG pH 6.80 L* ABG pCO2 66 H ABG pO2 77 L ABG HCO3 10 L* ABG Total CO2 12 L ABG O2 Saturation 80.2 L Sodium Carbon Dioxide BUN Creatinine Glucose POC Glucose (mg/dL) Calcium Phosphorus Magnesium AST ALT Troponin I Total Protein Albumin 01/19/20 01/19/20 01/19/20 12:30 12:30 16:20 WBC RBC Hgb Hct MCHC RDW Lymphocytes # (Manual) Metamyelocytes # (Man) Myelocytes # (Manual) Promyelocytes # (Man) PT INR APTT ABG pH 7.07 L* ABG pCO2 57 H ABG pO2 66 L ABG HCO3 17 L ABG Total CO2 18 L ABG O2 Saturation 88.0 L Sodium 135 L Carbon Dioxide 13 L BUN 26 H Creatinine 1.53 H Glucose 356 H POC Glucose (mg/dL) Calcium 8.3 L Phosphorus Magnesium 2.8 H AST 174 H ALT 114 H Troponin I 0.164 H* Total Protein 5.2 L Albumin 2.6 L 01/19/20 01/19/20 01/19/20 16:34 16:58 16:58 WBC 34.6 H RBC 3.35 L Hgb 9.7 L Hct 30.9 L MCHC RDW 17.7 H Lymphocytes # (Manual) Metamyelocytes # (Man) Myelocytes # (Manual) Promyelocytes # (Man) PT 18.8 H INR 1.9 H APTT ABG pH ABG pCO2 ABG pO2 ABG HCO3 ABG Total CO2 ABG O2 Saturation Sodium Carbon Dioxide BUN Creatinine Glucose POC Glucose (mg/dL) 308 H Calcium Phosphorus Magnesium AST ALT Troponin I Total Protein Albumin 01/19/20 16:58 WBC RBC Hgb Hct MCHC RDW Lymphocytes # (Manual) Metamyelocytes # (Man) Myelocytes # (Manual) Promyelocytes # (Man) PT INR APTT ABG pH ABG pCO2 ABG pO2 ABG HCO3 ABG Total CO2 ABG O2 Saturation Sodium 146 H Carbon Dioxide 37 H BUN 31 H Creatinine 1.89 H Glucose 261 H POC Glucose (mg/dL) Calcium 7.1 L Phosphorus 5.7 H Magnesium 2.6 H AST ALT Troponin I Total Protein Albumin - Diagnostic Findings Chest x-ray: image reviewed (Chest x-ray as noted in HPI.) Assessment and Plan Assessment: Impression: Cardiac arrest in a patient with known history of severe ischemic cardiomyopathy and LV dysfunction and known history of severe mitral regurgitation. Triple-vessel coronary artery disease Severe mitral regurgitation and moderate tricuspid regurgitation. Based on recent ANA performed on 08/28/19. Ischemic cardiomyopathy History of hypertension Tobacco dependence syndrome History of COPD History of obstructive sleep apnea syndrome Recommendation: Reviewed the chart. Reviewed his previous workup while inpatient. Review of the chest x-ray findings. Reviewed all the labs. Exam the patient. I clearly felt that his condition is futile, and felt prognosis is extremely poor. Not to mention the issue of severe anoxic brain injury based on the fact that the patient had a prolonged downtime. Family was approached by the nurse taking care of the patient, and change CODE STATUS from DO NOT RESUSCITATE to comfort care measures. Recommend comfort care measures and orders were placed on the chart. Time with Patient: Greater than 30
[2020-01-19 19:06] VITALS: BP 78/61; PULSE 114; RESP 29
--- NOTE | 2020-01-19 20:32 | P.HPIM ---
History of Present Illness H&P Date: 01/19/20 Chief Complaint: Cardiac arrest Hospital course: Patient presented to the ER when patient had become unresponsive at home and patient assistance started CPR. The paramedics arrived. He was in V. fib. Short term. Started him on amiodarone. Patient coded multiple times. Patient was intubated in route. In the ER he lost his pulse again CPR was done. Patient coded multiple times in the ER again. Patient was suspected to have brain injury. Patient seen by cardiology data management analyst . It was felt any further intervention is futile. Patient was made comfort care. Late in the afternoon patient . For more details refer to the chart . Patient was not seen by me. Consultation: Dr. Rehman-data management analyst Dr. Annabelle Alonso cardiology Final diagnosis -Cardiac arrest from underlying coronary artery disease -Coronary artery disease -Ischemic cardiomyopathy with EF of 20% -anoxic brain injury -Hypertension -Hyperlipidemia -COPD -Severe mitral and tricuspid regurgitation: Cause of : Coronary artery disease Disposition: Patient Past Medical History Past Medical History: Atrial Fibrillation, Coronary Artery Disease (CAD), CVA/TIA, Hyperlipidemia, Hypertension Additional Past Medical History / Comment(s): heart disease, angina History of Any Multi-Drug Resistant Organisms: None Reported Past Surgical History: Joint Replacement, Orthopedic Surgery Additional Past Surgical History / Comment(s): right knee, right hip replacements Past Anesthesia/Blood Transfusion Reactions: No Reported Reaction Past Psychological History: No Psychological Hx Reported Smoking Status: Former smoker Past Alcohol Use History: Unable to Obtain Past Drug Use History: Unable to Obtain - Past Family History Father Family Medical History: Coronary Artery Disease (CAD) Mother Family Medical History: Myocardial Infarction ([place]) Medications and Allergies Home Medications Medication Instructions Recorded Confirmed Type Albuterol Sulfate [Albuterol 2 puff PO RT-Q6H PRN 09/20/19 01/19/20 History Sulfate Hfa] Aspirin EC [Ecotrin Low Dose] 81 mg PO DAILY 09/20/19 01/19/20 History Bumetanide 2 mg PO DAILY 09/20/19 01/19/20 History Clopidogrel Bisulfate [Plavix] 75 mg PO DAILY 09/20/19 01/19/20 History Metoprolol Succinate [Toprol XL] 50 mg PO DAILY 09/20/19 01/19/20 History Spironolactone 25 mg PO DAILY 09/20/19 01/19/20 History lisinopriL [Zestril] 5 mg PO DAILY 11/30/19 01/19/20 History Allergies Allergy/AdvReac Type Severity Reaction Status Date / Time No Known Allergies Allergy Verified 01/19/20 12:51 Physical Exam Vitals: Vital Signs Temp Pulse Resp BP Pulse Ox 01/19/20 17:45 114 H 29 H 78/61 82 L 01/19/20 17:30 113 H 28 H 98/62 78 L 01/19/20 17:15 110 H 28 H 93/58 98 01/19/20 17:00 108 H 28 H 85/50 01/19/20 16:45 110 H 28 H 110/65 63 L 01/19/20 16:30 112 H 28 H 101/75 84 L 01/19/20 16:15 110 H 29 H 97/61 53 L 01/19/20 16:00 108 H 27 H 192/165 01/19/20 15:48 138/122 01/19/20 15:18 113 H 20 100/72 90 L 01/19/20 14:31 101 H 20 121/59 88 L 01/19/20 14:13 98 F 96 20 112/58 91 L 01/19/20 14:01 93 20 112/65 96 01/19/20 13:35 77 20 108/60 98 01/19/20 13:30 76 20 108/51 96 01/19/20 13:10 64 20 104/48 99 01/19/20 13:04 62 20 99/49 99 01/19/20 12:58 64 20 91/49 97 01/19/20 12:53 54 L 20 87/48 96 01/19/20 12:47 68 20 70/48 95 01/19/20 12:39 62 20 72/49 91 L 01/19/20 12:35 53 L 20 72/59 90 L 01/19/20 12:25 70 16 100/58 91 L 01/19/20 12:15 71 16 106/66 77 L 01/19/20 12:00 51 L 16 85/66 85 L 01/19/20 11:55 0 L 0 L 0 L Intake and Output 01/19/20 01/19/20 01/19/20 06:59 14:59 22:59 Intake Total 8.268 Balance 8.268 Intake: Intake, IV Titration 8.268 Amount Norepinephrine 4 mg In 8.268 Sodium Chloride 0.9% 250 ml @ 0.05 MCG/KG/MIN 16. 002 mls/hr IV .[id number] ONE Rx#:[id number] Other: Voiding Method Indwelling Catheter Weight 84 kg Results CBC & Chem 7: 01/19/20 16:58 01/19/20 16:58 Labs: Abnormal Lab Results - Last 24 Hours (Table) 01/19/20 01/19/20 01/19/20 Range/Units 12:26 12:30 12:30 WBC 13.2 H (3.8-10.6) k/uL RBC 3.40 L (4.30-5.90) m/uL Hgb 9.9 L D (13.0-17.5) gm/dL Hct 33.1 L (39.0-53.0) % MCHC 29.9 L (31.0-37.0) g/dL RDW 17.1 H (11.5-15.5) % Lymphocytes # (Manual) 5.54 H (1.0-4.8) k/uL Metamyelocytes # (Man) 0.40 H (0) k/uL Myelocytes # (Manual) 0.66 H (0) k/uL Promyelocytes # (Man) 0.13 H (0) k/uL PT (9.0-12.0) sec INR (<1.2) APTT 36.4 H (22.0-30.0) sec ABG pH 6.80 L* (7.35-7.45) ABG pCO2 66 H (35-45) mmHg ABG pO2 77 L (83-108) mmHg ABG HCO3 10 L* (21-25) mmol/L ABG Total CO2 12 L (19-24) mmol/L ABG O2 Saturation 80.2 L (94-97) % Sodium (137-145) mmol/L Carbon Dioxide (22-30) mmol/L BUN (9-20) mg/dL Creatinine (0.66-1.25) mg/dL Glucose (74-99) mg/dL POC Glucose (mg/dL) (75-99) mg/dL Calcium (8.4-10.2) mg/dL Phosphorus (2.5-4.5) mg/dL Magnesium (1.6-2.3) mg/dL AST (17-59) U/L ALT (4-49) U/L Troponin I (0.000-0.034) ng/mL Total Protein (6.3-8.2) g/dL Albumin (3.5-5.0) g/dL 01/19/20 01/19/20 01/19/20 Range/Units 12:30 12:30 16:20 WBC (3.8-10.6) k/uL RBC (4.30-5.90) m/uL Hgb (13.0-17.5) gm/dL Hct (39.0-53.0) % MCHC (31.0-37.0) g/dL RDW (11.5-15.5) % Lymphocytes # (Manual) (1.0-4.8) k/uL Metamyelocytes # (Man) (0) k/uL Myelocytes # (Manual) (0) k/uL Promyelocytes # (Man) (0) k/uL PT (9.0-12.0) sec INR (<1.2) APTT (22.0-30.0) sec ABG pH 7.07 L* (7.35-7.45) ABG pCO2 57 H (35-45) mmHg ABG pO2 66 L (83-108) mmHg ABG HCO3 17 L (21-25) mmol/L ABG Total CO2 18 L (19-24) mmol/L ABG O2 Saturation 88.0 L (94-97) % Sodium 135 L (137-145) mmol/L Carbon Dioxide 13 L (22-30) mmol/L BUN 26 H (9-20) mg/dL Creatinine 1.53 H (0.66-1.25) mg/dL Glucose 356 H (74-99) mg/dL POC Glucose (mg/dL) (75-99) mg/dL Calcium 8.3 L (8.4-10.2) mg/dL Phosphorus (2.5-4.5) mg/dL Magnesium 2.8 H (1.6-2.3) mg/dL AST 174 H (17-59) U/L ALT 114 H (4-49) U/L Troponin I 0.164 H* (0.000-0.034) ng/mL Total Protein 5.2 L (6.3-8.2) g/dL Albumin 2.6 L (3.5-5.0) g/dL 01/19/20 01/19/20 01/19/20 Range/Units 16:34 16:58 16:58 WBC 34.6 H (3.8-10.6) k/uL RBC 3.35 L (4.30-5.90) m/uL Hgb 9.7 L (13.0-17.5) gm/dL Hct 30.9 L (39.0-53.0) % MCHC (31.0-37.0) g/dL RDW 17.7 H (11.5-15.5) % Lymphocytes # (Manual) (1.0-4.8) k/uL Metamyelocytes # (Man) (0) k/uL Myelocytes # (Manual) (0) k/uL Promyelocytes # (Man) (0) k/uL PT 18.8 H (9.0-12.0) sec INR 1.9 H (<1.2) APTT (22.0-30.0) sec ABG pH (7.35-7.45) ABG pCO2 (35-45) mmHg ABG pO2 (83-108) mmHg ABG HCO3 (21-25) mmol/L ABG Total CO2 (19-24) mmol/L ABG O2 Saturation (94-97) % Sodium (137-145) mmol/L Carbon Dioxide (22-30) mmol/L BUN (9-20) mg/dL Creatinine (0.66-1.25) mg/dL Glucose (74-99) mg/dL POC Glucose (mg/dL) 308 H (75-99) mg/dL Calcium (8.4-10.2) mg/dL Phosphorus (2.5-4.5) mg/dL Magnesium (1.6-2.3) mg/dL AST (17-59) U/L ALT (4-49) U/L Troponin I (0.000-0.034) ng/mL Total Protein (6.3-8.2) g/dL Albumin (3.5-5.0) g/dL 01/19/20 Range/Units 16:58 WBC (3.8-10.6) k/uL RBC (4.30-5.90) m/uL Hgb (13.0-17.5) gm/dL Hct (39.0-53.0) % MCHC (31.0-37.0) g/dL RDW (11.5-15.5) % Lymphocytes # (Manual) (1.0-4.8) k/uL Metamyelocytes # (Man) (0) k/uL Myelocytes # (Manual) (0) k/uL Promyelocytes # (Man) (0) k/uL PT (9.0-12.0) sec INR (<1.2) APTT (22.0-30.0) sec ABG pH (7.35-7.45) ABG pCO2 (35-45) mmHg ABG pO2 (83-108) mmHg ABG HCO3 (21-25) mmol/L ABG Total CO2 (19-24) mmol/L ABG O2 Saturation (94-97) % Sodium 146 H (137-145) mmol/L Carbon Dioxide 37 H (22-30) mmol/L BUN 31 H (9-20) mg/dL Creatinine 1.89 H (0.66-1.25) mg/dL Glucose 261 H (74-99) mg/dL POC Glucose (mg/dL) (75-99) mg/dL Calcium 7.1 L (8.4-10.2) mg/dL Phosphorus 5.7 H (2.5-4.5) mg/dL Magnesium 2.6 H (1.6-2.3) mg/dL AST (17-59) U/L ALT (4-49) U/L Troponin I (0.000-0.034) ng/mL Total Protein (6.3-8.2) g/dL Albumin (3.5-5.0) g/dL
--- NOTE | 2020-01-19 20:33 | P.DS ---
Providers Date of admission: 01/19/20 15:21 Expected date of discharge: 01/19/20 Attending physician: Devon Jones Consults: 01/19/20 14:34 Consult Physician Urgent Consulting Provider: Leonard Hicks Consult Reason/Comments: Neurological assessment Do you want consulting provider notified?: Yes 01/19/20 15:21 Consult Physician Routine Consulting Provider: [facility] Consult Reason/Comments: Cardiac arrest Do you want consulting provider notified?: Yes Consult Physician Routine Consulting Provider: Eduar Rehman Consult Reason/Comments: Critical care management Do you want consulting provider notified?: Yes 01/19/20 16:28 Consult Physician Stat Consulting Provider: Will Guerra Consult Reason/Comments: GIB Do you want consulting provider notified?: Already Contacted Primary care physician: [facility] Hospital Course: Hospital course: Patient presented to the ER when patient had become unresponsive at home and patient assistance started CPR. The paramedics arrived. He was in V. fib. Short term. Started him on amiodarone. Patient coded multiple times. Patient was intubated in route. In the ER he lost his pulse again CPR was done. Patient coded multiple times in the ER again. Patient was suspected to have brain injury. Patient seen by cardiology log preparer . It was felt any further intervention is futile. Patient was made comfort care. Late in the afternoon patient . For more details refer to the chart . Patient was not seen by me. Consultation: Dr. Rehman-log preparer Dr. Annabelle Alonso cardiology Final diagnosis -Cardiac arrest from underlying coronary artery disease -Coronary artery disease -Ischemic cardiomyopathy with EF of 20% -anoxic brain injury -Hypertension -Hyperlipidemia -COPD -Severe mitral and tricuspid regurgitation: Cause of : Coronary artery disease Disposition: Patient Plan - Discharge Summary New Discharge Prescriptions: No Action Spironolactone 25 mg PO DAILY Clopidogrel Bisulfate [Plavix] 75 mg PO DAILY Bumetanide 2 mg PO DAILY Aspirin EC [Ecotrin Low Dose] 81 mg PO DAILY Albuterol Sulfate [Albuterol Sulfate Hfa] 2 puff PO RT-Q6H PRN PRN Reason: Wheezing Metoprolol Succinate [Toprol XL] 50 mg PO DAILY lisinopriL [Zestril] 5 mg PO DAILY Discharge Medication List Albuterol Sulfate [Albuterol Sulfate Hfa] 2 puff PO RT-Q6H PRN 09/20/19 [History] Aspirin EC [Ecotrin Low Dose] 81 mg PO DAILY 09/20/19 [History] Bumetanide 2 mg PO DAILY 09/20/19 [History] Clopidogrel Bisulfate [Plavix] 75 mg PO DAILY 09/20/19 [History] Metoprolol Succinate [Toprol XL] 50 mg PO DAILY 09/20/19 [History] Spironolactone 25 mg PO DAILY 09/20/19 [History] lisinopriL [Zestril] 5 mg PO DAILY 11/30/19 [History] Follow up Appointment(s)/Referral(s): Orlin Laguna MD [Primary Care Provider] - 1-2 days
[2020-01-19] MEDS ORDERED: PANTOPRAZOLE 40 MG/10 ML VIAL IV SCH (21:00)
--- NOTE | 2020-01-27 09:47 | CDI ---
Documentation Clarification Form Mortality Review Date: 01/27/2020 09:21:30 AM From: Rosaura Boyd RN, CCDS Admit Date: 01/19/2020 03:21:00 PM Patient Name: Ajay Lujan Visit Number: [id number] Discharge Date: 01/19/2020 10:14:00 PM ATTENTION: The Clinical Documentation Specialists (CDI) and [facility] Coding Staff appreciate your assistance in clarifying documentation. Please respond to the clarification below the line at the bottom and electronically sign. The CDI & [facility] Coding staff will review the response and follow-up if needed. Please note: Queries are made part of the Legal Health Record. If you have any questions, please contact the author of this message via ITS. Dr. Devon Jones The patient presented unresponsive, receiving CPR, and defibrillation for V-Fib and was intubated upon arrival. Please provide clinical significance to accurately reflect this patient's severity of illness and risk of mortality. History/Risk Factors: CHF, severe ischemic cardiomyopathy, CAD with severe mitral regurg with need for CABG and mitral valve repair Tobacco use: former smoker Clinical Indicators: 01/18 Pulmonary Consult: "other (Cardiac arrest and respiratory failure). He collapsed down to the floor and became unresponsive. Sister was unable to wake him up. And she started CPR. EMS arrived within 10 minutes, and he was found to be in ventricular fibrillation. Patient was defibrillated. And on the way to the hospital, patient was shocked about 5-8 times. Patient also received shocks for ventricular fibrillation in the ER, he was intubated, he was unresponsive, and he had no pupillary responses. Placed on norepinephrine for hypertension. EKG showed significant ST elevation in aVR with ST depression in the lateral leads chest x-ray showed evidence of pulmonary edema. Patient arrived to the ICU, hypotensive, unresponsive, and he was agonal in spite of being on mechanical ventilation." Admission Vital signs 1155: Pulse 0, RR, Spo2 0 1200: HR 51, RR 16 (MV), B/P 85/66, Spo2 85% on 100% MV 01/18 Pulmonary Lung/Breathing assessment: "Chest: [Crackles and rhonchi noted bilaterally. Symmetrical chest expansion." 01/18 1226 ABG/CBG on 100% FIO2: pH 6.8 pCO2 66 pO2 77 HCO3 10 Total Co2 12 02 Sat 80.2 Base Excess -24.3 Treatment: Intubation with MV: AC 26, TV 450, PEEP 10, FIO2 100% Continuous Pulse ox per ICU protocol Patient later placed on comfort care after admission to ICU In your professional opinion, can you please clarify if these findings signify one of the following conditions? Acute Hypoxic Respiratory Failure Acute Hypercapnic Respiratory Failure Other Diagnosis, please specify Unable to determine Specificity: If known, further specify (if known): With hypercapnia? (pCO2 >50 and pH <7.35) With hypoxia? (pO2 <60 mm Hg or SpO2 <91% on room air) (Last Query Form Revision: November 2018) acute hypoxic and hypercapnic respiratory failure MTDD
--- NOTE | 2020-01-27 10:24 | CDI ---
Documentation Clarification Form Mortality Review Date: 01/27/2020 10:09:19 AM From: Rosaura Boyd RN, CCDS Admit Date: 01/19/2020 03:21:00 PM Patient Name: Ajay Lujan Visit Number: [id number] Discharge Date: 01/19/2020 10:14:00 PM ATTENTION: The Clinical Documentation Specialists (CDI) and [facility] Coding Staff appreciate your assistance in clarifying documentation. Please respond to the clarification below the line at the bottom and electronically sign. The CDI & [facility] Coding staff will review the response and follow-up if needed. Please note: Queries are made part of the Legal Health Record. If you have any questions, please contact the author of this message via ITS. Dr. Chencho Alonso Hx of CHF is documented in the 01/18 Pulmonary consult and requires further specificity to accurately reflect the patient's severity of illness and risk of Mortality. History/Risk Factors: CHF, CAD with TVD, ischemic cardiomyopathy, severe mitral regurg and moderate tricuspid regurg, HTN, ANDREW, tobacco dependance Clinical Indicators: 01/18 Pulmonary Consult: "Patient was admitted at the time with symptoms of congestive heart failure related to severe ischemic cardiomyopathy with ejection fraction of 20-25%, and he was found to have significant severe mitral regurgitation as well as significant coronary artery disease. EKG showed significant ST elevation in aVR with ST depression in the lateral leads chest x- ray showed evidence of pulmonary edema." 01/18 VS/Pulse OX: HR 51, RR 16 (MV), B/P 85/66, Spo2 85% (MV) BNP: not checked Echocardiogram Results: v20-25% per Pulmonary Consult 01/18 Chest X Ray: "Scattered interstitial pulmonary edema" Treatment: 01/18 1628 Lasix 40 mg IVP x 1 Home Meds: Lisinopril 5 mg PO Daily, Spironolactone 25 mg PO Daily, Toprol XL 50 mg PO Daily, Bumex 2 mg PO Daily In your professional opinion, can you please clarify the acuity and type of CHF if known? Systolic Heart Failure: Acute Chronic Acute on Chronic Systolic & Diastolic Heart Failure: Acute Chronic Acute on Chronic Heart Failure Unable to Determine Other, please specify (Last Revision: June 2017) acute on chronic chf MTDD
--- NOTE | 2020-01-27 10:44 | CDI ---
Documentation Clarification Form Mortality Review Date: 01/27/2020 10:29:23 AM From: Rosaura Boyd RN, CCDS Admit Date: 01/19/2020 03:21:00 PM Patient Name: Ajay Lujan Visit Number: [id number] Discharge Date: 01/19/2020 10:14:00 PM ATTENTION: The Clinical Documentation Specialists (CDI) and [facility] Coding Staff appreciate your assistance in clarifying documentation. Please respond to the clarification below the line at the bottom and electronically sign. The CDI & [facility] Coding staff will review the response and follow-up if needed. Please note: Queries are made part of the Legal Health Record. If you have any questions, please contact the author of this message via ITS. Dr. Devon Jones Atrial Fibrillation is documented in the PMH and requires further specificity to accurately reflect the severity of illness and risk of mortality. History/Risk Factors: Atrial fib, CAD, CVA/TIA, Hyperlipidemia, HTN, severe mitral regurg, ischemic cardiomyopathy Clinical Indicators: 01/18 ED Note EKG: "EKG showed sinus rhythm at 87 bpm [place] interval is 262 QRS is 140 QT interval 420 QTC is 505. Patient's EKG showed what appeared to be ST segment elevation in leads [address] segment depression in leads 1 and aVL. Repeat EKG was done and showed QRS with a rate of 64 QRS is 126 QT intervals 408 QTC is 420." Treatment: Consults: Cardiology 01/18 0.9% NS 2L IVF bolus Levophed titrate for B/P Home Meds: Lisinopril 5 mg Po Daily, Toprol XL 50 mg PO Daily, Plavix 75 mg Po Daily, ASA 81 mg Po daily In your professional opinion, can you please clarify the type of Atrial Fibrillation, if known? Chronic/Permanent Paroxysmal Other, please specify Unable to determine (Last Revision: June 2017) MTDD
--- NOTE | 2020-01-27 11:03 | CDI ---
Documentation Clarification Form Mortality Review Date: 01/27/2020 10:58:55 AM From: Rosaura Boyd RN, CCDS Admit Date: 01/19/2020 03:21:00 PM Patient Name: Ajay Lujan Visit Number: [id number] Discharge Date: 01/19/2020 10:14:00 PM ATTENTION: The Clinical Documentation Specialists (CDI) and [facility] Coding Staff appreciate your assistance in clarifying documentation. Please respond to the clarification below the line at the bottom and electronically sign. The CDI & [facility] Coding staff will review the response and follow-up if needed. Please note: Queries are made part of the Legal Health Record. If you have any questions, please contact the author of this message via ITS. Dr. Chencho Wolf troponin with documentation of ST elevation in aVR is documented in a patient s/p cardiac arrest defibrillated between 5 and 8 times for V-Fib is documented. Please provide additional clinical significance if able to accurately reflect severity of illness and risk of mortality. Patient History/Risk Factors: Atrial fib, CAD w TVD, HLD, HTN, Angina, [place]. 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 She did show an ST elevation in aVR with subsequent ST depression in the lateral leads #2 documented history of coronary artery disease, cardiac catheterization performed in August revealed significant multivessel coronary artery disease. 01/18 1230 Troponin: 0.164 01/18 Ed notes: EKG Results: EKG showed sinus rhythm at 87 bpm [place] interval is 262 QRS is 140 QT interval 420 QTC is 505. Patient's EKG showed what appeared to be ST segment elevation in leads [address] segment depression in leads 1 and aVL. -Repeat EKG was done and showed QRS with a rate of 64 QRS is 126 QT intervals 408 QTC is 420.There was no significant ST segment elevation noted. Treatment: Consult: see Cardiology note above 01/18 1249 2L 0.9% NS IVF bolus Levophed Gtt titrate for B/P In order to capture the severity of condition and necessary documentation specificity, please clarify: Type of Infarction: STEMI NSTEMI Unable to determine Other Condition, please specify Episode of Care: Initial Episode Subsequent Episode Unable to determine Other, please specify Age of infarction if known Acute [place] (within the last 4 weeks) Subsequent [place] (another [place] within 4 weeks) New Acute [place] - (another [place] after 4 weeks) Old [place] ([place] more than 4 weeks old) Specific date if known: Unable to determine Site of myocardial injury, if known: Anterior wall Inferior wall Lateral wall Posterior wall Septal wall Other, please specify Unable to determine Coronary artery involved, if known: Right Coronary Artery Acute Marginal Artery Right Posterior Descending Artery Left Coronary Artery Left Anterior Descending Artery Left Circumflex Artery Other, please specify Unable to determine (Last Revision: December 2016) non stemi MTDD
--- NOTE | 2020-01-27 11:13 | CDI ---
Documentation Clarification Form Date: 01/27/2020 11:04:23 AM From: Rosaura Boyd RN, CCDS Admit Date: 01/19/2020 03:21:00 PM Patient Name: Ajay Lujan Visit Number: [id number] Discharge Date: 01/19/2020 10:14:00 PM ATTENTION: The Clinical Documentation Specialists (CDI) and [facility] Coding Staff appreciate your assistance in clarifying documentation. Please respond to the clarification below the line at the bottom and electronically sign. The CDI & [facility] Coding staff will review the response and follow-up if needed. Please note: Queries are made part of the Legal Health Record. If you have any questions, please contact the author of this message via ITS. Dr. Devon Jones Patient is noted to be hypotensive requiring vasopressors s/p cardiac arrest with V-Fib. Please provide clinical significance to accurately reflect SOI/ROM. Patient history/risk factors: CHF, Atrial Fib, CAD with TVD and severe mitral regurgitation, EF 25%, ischemic cardiomyopathy, HTN, HLD, Hx of [place], COPD Clinical Indicators: Cardiac arrest with V-Fib requiring several rounds of defibrillation and CPR with an extended downtime 01/18 Pulmonary Consult: "Patient arrived to the ICU, hypotensive, unresponsive, and he was agonal in spite of being on mechanical ventilation. Shortly after intubation and nasogastric tube placement, patient has noted to have significant bleeding with blood coming out through the nasogastric tube, and bloody bowel movements/multiple." 01/18 1200 Vitals: HR 51, RR 16 (MV), B/P 85/66, Spo2 85% on 100% FIO2 MV Treatment: 01/18 2L 0.9% NS IVF Bolus Levoped gtt titrate for B/P In your professional opinion, can you please specify the type of shock if known? Cardiogenic Shock Cause Hypovolemic Shock Cause Other, please specify Unable to determine (Last Revision: December 2016) cardiogenic shock MTDD
--- NOTE | 2020-01-27 11:37 | CDI ---
Documentation Clarification Form Date: 01/27/2020 11:16:45 AM From: Rosaura Boyd RN, CCDS Admit Date: 01/19/2020 03:21:00 PM Patient Name: Ajay Lujan Visit Number: [id number] Discharge Date: 01/19/2020 10:14:00 PM ATTENTION: The Clinical Documentation Specialists (CDI) and [facility] Coding Staff appreciate your assistance in clarifying documentation. Please respond to the clarification below the line at the bottom and electronically sign. The CDI & [facility] Coding staff will review the response and follow-up if needed. Please note: Queries are made part of the Legal Health Record. If you have any questions, please contact the author of this message via ITS. Dr. Devon Jones The patient is noted to be unresponsive on admission. Please review and provide further documentation if able, to accurately reflect SOI/ROM. History/Risk Factors: Clinical Indicators: 01/18 Cardiology Consult: NEUROLOGIC patient is intubated, not sedated, unresponsive Plan : Patient is currently unresponsive, no pupillary response, showing evidence of anoxic encephalopathy.at this point in time patient will be transferred to the intensive care unit, with ventilatory support. 01/18 Pulmonary Consult: "Patient went today with his sister to follow-up, and upon arrival, he walked into the house, and all of a sudden he collapsed down to the floor and became unresponsive. Patient also received shocks for ventricular fibrillation in the ER, he was intubated, he was unresponsive, and he had no pupillary responses. Patient arrived to the ICU, hypotensive, unresponsive, and he was agonal in spite of being on mechanical ventilation. Physical Exam revealed a 69-year-old white male unresponsive to any stimuli, intubated, mechanically ventilated, noted to be agonal and not synchronous with the ventilator. Neurological Exam: Patient is unresponsive to any deep painful stimuli." 01/18 CT Brain: "CONSISTENT WITH CHRONIC SMALL VESSEL ISCHEMIC CHANGES.EFFACEMENT OF THE SULCI MAY BE DUE TO UNDERLYING ISCHEMIC CHANGE ALTHOUGH THERE IS ARTIFACT ON THE EXAM." 01/18 Lab findings: WBC 13.2/34.6, Hgb 9.9/9.7, PH 6.8/7.07, BUN 26/31. Creat 1.53/1.83 Admission 01/18 1155 Vital Signs: HR 0, RR 0, SPO2 0 Treatment: 01/18 1744 2 mg Ativan IVP and 4 mg MS IVP for comfort measures In your professional opinion, can you please clarify if the patient's unresponsive state? Comatose (specify cause if known) Other, please specify Unable to determine (Last Revision: June 2017) hypoxic brain injury MTDD
--- NOTE | 2020-02-06 08:31 | CDI ---
Documentation Clarification Form Mortality Review Date: 01/27/2020 10:29:23 AM From: Rosaura Boyd RN, CCDS Admit Date: 01/19/2020 03:21:00 PM Patient Name: Ajay Lujan Visit Number: [id number] Discharge Date: 01/19/2020 10:14:00 PM ATTENTION: The Clinical Documentation Specialists (CDI) and [facility] Coding Staff appreciate your assistance in clarifying documentation. Please respond to the clarification below the line at the bottom and electronically sign. The CDI & [facility] Coding staff will review the response and follow-up if needed. Please note: Queries are made part of the Legal Health Record. If you have any questions, please contact the author of this message via ITS. Dr. Chencho Alonso Atrial Fibrillation is documented in the PMH and requires further specificity to accurately reflect the severity of illness and risk of mortality. History/Risk Factors: Atrial fib, CAD, CVA/TIA, Hyperlipidemia, HTN, severe mitral regurg, ischemic cardiomyopathy Clinical Indicators: 01/18 ED Note EKG: "EKG showed sinus rhythm at 87 bpm [place] interval is 262 QRS is 140 QT interval 420 QTC is 505. Patient's EKG showed what appeared to be ST segment elevation in leads [address] segment depression in leads 1 and aVL. Repeat EKG was done and showed QRS with a rate of 64 QRS is 126 QT intervals 408 QTC is 420." Treatment: Consults: Cardiology 01/18 0.9% NS 2L IVF bolus Levophed titrate for B/P Home Meds: Lisinopril 5 mg Po Daily, Toprol XL 50 mg PO Daily, Plavix 75 mg Po Daily, ASA 81 mg Po daily In your professional opinion, can you please clarify the type of Atrial Fibrillation, if known? Chronic/Permanent Paroxysmal Other, please specify Unable to determine (Last Revision: June 2017) paroxysmal afib MTDD
== END 2020-01-19 22:14 | disposition expired ==
LOC: EC 11:49 → 2SICU 15:21
PROVIDERS: ADMIT Hospitalist; ATTEND Hospitalist
PROC: 5A1935Z Respiratory Ventilation, Less than 24 Consecutive Hours (ICD-10-PCS; principal; 2020-01-19)
PROC: 02H633Z Insertion of Infusion Device into Right Atrium, Percutaneous Approach (ICD-10-PCS; 2020-01-19)
PROC: 5A12012 Performance of Cardiac Output, Single, Manual (ICD-10-PCS; 2020-01-19)
PROC: 5A2204Z Restoration of Cardiac Rhythm, Single (ICD-10-PCS; 2020-01-19)
PROC: 3E033XZ Introduction of Vasopressor into Peripheral Vein, Percutaneous Approach (ICD-10-PCS; 2020-01-19)
DX: I49.01 Ventricular fibrillation (principal); J96.01 Acute respiratory failure with hypoxia; I21.4 Non-ST elevation (NSTEMI) myocardial infarction; J96.02 Acute respiratory failure with hypercapnia; I50.23 Acute on chronic systolic (congestive) heart failure; G93.1 Anoxic brain damage, not elsewhere classified; K92.1 Melena; R57.0 Cardiogenic shock; I11.0 Hypertensive heart disease with heart failure; J44.9 Chronic obstructive pulmonary disease, unspecified; Z20.828 Contact with and (suspected) exposure to other viral communicable diseases; I46.2 Cardiac arrest due to underlying cardiac condition; Z66 Do not resuscitate; Z51.5 Encounter for palliative care; I48.0 Paroxysmal atrial fibrillation; I25.10 Atherosclerotic heart disease of native coronary artery without angina pectoris; E78.5 Hyperlipidemia, unspecified; I25.5 Ischemic cardiomyopathy; I08.3 Combined rheumatic disorders of mitral, aortic and tricuspid valves; G47.33 Obstructive sleep apnea (adult) (pediatric); I25.2 Old myocardial infarction; Z79.899 Other long term (current) drug therapy; Z79.02 Long term (current) use of antithrombotics/antiplatelets; Z79.82 Long term (current) use of aspirin; Z86.73 Personal history of transient ischemic attack (TIA), and cerebral infarction without residual deficits; Z87.891 Personal history of nicotine dependence; Z96.651 Presence of right artificial knee joint; Z96.641 Presence of right artificial hip joint; Z82.49 Family history of ischemic heart disease and other diseases of the circulatory system
CPT/HCPCS: 36415; 36556; 36600; 70450; 71045; 80048; 80053; 82805; 83735; 84100; 84484; 85025; 85027; 85610; 85730; 86850; 86900; 86901; 92950; 93005; 94002; 96365; 96366; 96375; 99291